=== PATIENT | female | born 1955 | race Caucasian/White ===

== ENCOUNTER 2017-03-20 11:18 | Outpatient (CLI) | payer MEDICARE, MEDICAID ==
[2017-03-20] MEDS ORDERED: Iopamidol 370 76% 100 ML VIAL ONE (13:54)
--- NOTE | 2017-03-20 14:49 | CT ---
CTA OF THE CHEST AND ABDOMEN AND PELVIS WITH AND WITHOUT IV CONTRAST: Date: 03/20/17 INDICATION: History of aortic aneurysm repair and breast cancer. COMPARISON: Prior exam dated 06/27/16. FINDINGS: Again seen is an endovascular stent extending from the distal aspect of the aortic arch through the l evel of the distal thoracic aorta. There is some mural thrombus seen along the posterior and left lat eral aspect of the endovascular stent that appears similar. The aneurysmal dilatation involving the d istal aortic arch is stable measuring up to 4.7 cm. The ascending aorta measured up to 2.9 cm. The celiac, SMA, and renal arteries appear patent. The FIDELINA is patent. Both common iliacs and common f emoral arteries are patent. There is scattered emphysema. There is a small sub-4 mm pulmonary nodule left upper lobe on image 25 of series 5. No suspicious pulmonary nodule is demonstrated. The gallbladder is surgically absent. No focal hepatic lesion is evident. Adrenal glands are normal appearing. Visualized pancreas appears within normal limits. A small splenule is present. Kidneys are normal appearing. There are some varicosities seen within the left aspect of the hemipelvis that communicate within the left gonadal vein. There is a decompressed sigmoid colon and rectum which may be related to poor distention; however, th ere is some suggestion of some mild wall thickening at this level. A proctocolitis cannot be entirely excluded. No drainable fluid collection is evident. Small sclerotic foci within the L4 and L3 vertebral body are stable since 2014, likely reflect small bone islands. There is scattered degenerative and osteoarthritic change. IMPRESSION: 1. Stable aneurysmal dilatation of the thoracic aorta. 2. The endograft stent remains patent. The extent of the mural thrombus appears similar to the most recent comparison. 3. Stable emphysema. 4. Slight wall thickening involving a portion of sigmoid colon and rectum may be related to underdis tention; however, a proctocolitis cannot be entirely excluded. Recommend correlation. POS: [facility]
== END 2017-03-20 11:19 | disposition home or self-care (01) ==
LOC: CT 11:18
PROVIDERS: ATTEND Family Medicine
DX: I71.2 Thoracic aortic aneurysm, without rupture (principal); I71.4 Abdominal aortic aneurysm, without rupture; J43.9 Emphysema, unspecified; C50.919 Malignant neoplasm of unspecified site of unspecified female breast; K63.89 Other specified diseases of intestine; Z95.828 Presence of other vascular implants and grafts
CPT/HCPCS: 71275; 74174

== ENCOUNTER 2017-10-28 15:49 | Outpatient (CLI) | payer MEDICARE, MEDICAID ==
--- NOTE | 2017-10-28 14:35 | RAD ---
TWO VIEW CHEST: History: Left breast cancer. Left rib pain. Comparison: 09-11-16 FINDINGS: Aortic stent graft again noted. Post op sternotomy changes. Clips overlying the right axilla region. Lungs remain clear. No evidence of vascular congestion. Heart size is within normal range. Osseous st ructures appear intact. Degenerative changes are prominent at the right shoulder. IMPRESSION: No acute abnormality identified. POS: [facility]
== END 2017-10-28 15:50 | disposition home or self-care (01) ==
LOC: RAD 15:49
PROVIDERS: ATTEND Radiology Radiation Oncology
DX: R07.81 Pleurodynia (principal); C50.911 Malignant neoplasm of unspecified site of right female breast; Z90.2 Acquired absence of lung [part of]; Z92.3 Personal history of irradiation
CPT/HCPCS: 71046

== ENCOUNTER 2018-01-28 13:39 | Outpatient (CLI) | payer MEDICARE, MEDICAID | END 2018-01-28 13:40 | disposition home or self-care (01) | LOC: BICMAMMO 13:39 | PROVIDERS: ATTEND Internal Medicine Hematology & Oncology | DX: Z08 Encounter for follow-up examination after completed treatment for malignant neoplasm (principal); Z85.3 Personal history of malignant neoplasm of breast; Z85.41 Personal history of malignant neoplasm of cervix uteri; Z80.3 Family history of malignant neoplasm of breast | CPT/HCPCS: 77063; 77066; 77067; G0279 ==

== ENCOUNTER 2018-03-06 09:01 | Outpatient (CLI) | payer MEDICARE, MEDICAID ==
--- NOTE | 2018-03-06 10:53 | BD ---
DEXA BONE DENSITY STUDY: Date: 03/06/18 HISTORY: 62-year-old female with history of breast cancer, osteopenia, menopause. FINDINGS/IMPRESSION: Lumbar Spine: BMD (g/cm2) L1 0.889 T-Score: -0.9 L2 0.878 T-Score: -1.4 L3 0.981 T-Score: -0.9 L4 0.894 T-Score: -1.5 L1-L4 0.914 T-Score: -1.2 Evidence for osteopenia with increased risk for fracture. Bone mineral density is decreased 3.5% from 05/07/16. Left Hip: Femoral Neck: 0.738 T-Score: -1.0 Total Femur: 0.856 T-Score: -0.7 Within normal limits with no increased risk for fracture. FRAX score is not reported because the patient is being treated for osteoporosis. POS: [facility]
--- NOTE | 2018-03-06 12:33 | CT ---
CTA OF THE CHEST AND ABDOMEN AND PELVIS WITHOUT CONTRAST: COMPARISON: 03/20/2017. HISTORY: Thoracic and abdominal aortic aneurysm. Followup exam. Status post stent graft placement. TECHNIQUE: Multiple contiguous axial images were obtained in a CTA of the chest, abdomen, and pelvis without con trast. Postcontrast images could not be obtained secondary to poor IV access for the patient. FINDINGS: The patient has a stent graft in the descending thoracic aorta extending out to the level of the diap hragm. Just above the stent graft, there is an area of aneurysmal dilatation of the left side of the aortic arch. This is just distal to the left subclavian artery takeoff. This area has enlarged com pared to the most recent examination and now measures 5.2 cm in greatest dimension. The aorta within the stent graft is stable in size measuring 5.2 cm in greatest dimension inferiorly at the diaphragm . The heart is normal in size without focal cardiac abnormality. No hilar or mediastinal lymphadenopat hy are appreciated on this limited noncontrast examination. Emphysematous changes are seen in the lungs. No suspicious pulmonary nodules are seen. No pneumotho rax or pleural effusion are seen. The patient is status post cholecystectomy. The liver, kidneys, adrenal glands, spleen, and pancreas are unremarkable, although evaluation is limited on this noncontrast examination. There are scattered diverticula in the colon. The small bowel is unremarkable. The reproductive org ans are unremarkable. No abdominal or pelvic lymphadenopathy are seen. Degenerative changes are seen in the spine. The chest and abdominal wall soft tissues are unremarkab le. IMPRESSION: 1. Status post stent graft repair of thoracic and abdominal aortic aneurysm. There is slight enlarg ement of the aorta just along the proximal aspect of the stent graft along the aortic arch as above. 2. Chronic obstructive pulmonary disease/emphysema. POS: [facility]
== END 2018-03-06 09:02 | disposition home or self-care (01) ==
LOC: BICMAMMO 09:01
PROVIDERS: ATTEND Family Medicine
DX: Z13.820 Encounter for screening for osteoporosis (principal); I71.4 Abdominal aortic aneurysm, without rupture; M85.88 Other specified disorders of bone density and structure, other site; Z78.0 Asymptomatic menopausal state; J43.9 Emphysema, unspecified
CPT/HCPCS: 36415; 71250; 74177; 77080; 80048

== ENCOUNTER 2018-05-09 09:01 | Outpatient (CLI) | payer MEDICARE, MEDICAID ==
--- NOTE | 2018-05-09 12:22 | CT ---
CT ANGIOGRAM THORAX WITH IV CONTRAST AND 3D RECONSTRUCTIONS CT ANGIOGRAM ABDOMEN WITH IV CONTRAST AND 3D RECONSTRUCTIONS: DATE: 05/09/2018. HISTORY: Aortic aneurysm. COMPARISON: Studies on 03/06/2018 and 03/20/2017. FINDINGS: Again noted is a thoracic aortic stent graft in the descending thoracic aorta which extends to the le anabella of the aortic hiatus. Again noted is the mural thrombus seen predominantly involving the posteri or and posterolateral aspects of the stent graft. Aneurysmal dilatation involving the distal aortic arch is again present. The greatest diameter is approximately 5.1 cm with previous measurement of ap proximately 4.7. This aneurysm begins at the level of the origin of the left subclavian artery which is patent. The innominate artery and proximal visualized bilateral common carotid arteries are pardo nt. The right subclavian artery remains ectatic measuring 1.8 cm in diameter but is patent. There a re surgical clips in the anterior superior mediastinum between the level of the innominate artery and left common carotid artery with surgical clips also seen in the right infraclavicular location. Med melissa sternotomy wires are present. The ascending thoracic aorta is normal in caliber measuring approximately 3 cm in diameter. The most proximal abdominal aorta at the level of the origin of the superior mesenteric artery measur es approximately 4.5 cm and there is eccentric mural thrombus present within this aneurysm. The lizzy ac and superior mesenteric arteries are patent. Vascular calcification is seen at the origin of the inferior mesenteric artery and the origin is difficult to evaluate on this exam. There are single pa tent bilateral renal arteries visualized, although the abdominal aorta is dilated at the level of the right renal artery measuring 4.1 cm in greatest dimension. Vascular calcifications are present within the abdominal aorta and involving the iliac arteries. The re is a small sacular aneurysm involving the distal aspect of the right common iliac artery which meagan sures approximately 1.1 cm. The iliac arteries are otherwise patent bilaterally. Bilateral common f emoral arteries appear patent. Surgical clips are seen in each inguinal region. Right-sided pericardial fluid collection measuring 5.5 cm x 2.9 cm which does measure similar in size to a study in 2018, but this has enlarged when compared to a CTA of the chest on 06/27/2016 where thi s measured 4.2 cm x 1.7 cm. Emphysematous changes are again seen within the lungs bilaterally, greater in the upper lobes with a few scattered linear densities likely related to areas of mild atelectasis or scarring. No discrete pulmonary nodule or mass is seen in the lungs bilaterally. Post cholecystectomy changes are noted The liver, spleen, pancreas, bilateral adrenal glands, kidneys, and incompletely distended urinary bl adder demonstrate a normal CT appearance. The uterus is small in size with small calcifications present which may be related to calcified uteri ne fibroids. A small amount of free fluid is seen in the pelvis which was not present on prior studies. There are metallic densities seen in the lower pelvis in the region of the vagina of uncertain etiolo gy but stable compared to the prior studies. However, there has been interval development of mild in flammatory stranding seen in the anterior pelvis just anterior and superior to the level of the urina ry bladder and anterior to the level of the uterus with irregular-appearing small masses probably rel ated to enlarged lymph nodes, the largest measuring 1.8 cm. There is a hypodense structure seen in t he right adnexal region measuring approximately 3 cm. I am unsure if this is related to fluid in thi s region or a cystic-appearing lesion. There is a small amount of free fluid in the pelvis. The irr egular mass-like nodules and inflammatory stranding in the anterior pelvis was not present on the dread or study in 2017 and findings are worrisome for the possibility of either developing carcinomatosis o r metastatic disease. There is colonic diverticulosis. Small fat-containing umbilical hernia is present. Degenerative changes are again noted in the spine. There is irregularity at the pubic symphysis prob ably related to degenerative changes. IMPRESSION: 1. Interval development of irregular nodular densities and inflammatory stranding within the anterio r aspect of the lower pelvis just superior and anterior to the level of the urinary bladder. There h as also been interval development of a small amount of free fluid in the pelvis with an approximately 3 cm low-density area within the right adnexal region which may also be related to fluid, although a cystic lesion could not be entirely excluded. This nodularity and inflammatory change with fluid is worrisome for a neoplastic process and may be related to carcinomatosis/metastatic disease. 2. Thoracic aortic stent graft with aneurysmal dilatation of the distal descending thoracic aorta me asuring 5.1 cm slightly enlarged from prior exams. This aneurysm begins at the level of the origin o f the left subclavian artery. 3. Abdominal aortic aneurysm with dilatation of the proximal abdominal aorta above the level and at the level of the right renal artery. 4. Right-sided pericardial fluid collection which has enlarged when compared to a CTA of the chest o n 06/27/2016. 5. Small fat-containing umbilical hernia. 6. Additional incidental findings as described above. Above findings were discussed with Dr. Magallon on 05/09/2018 at 11:07 hours. CODE CR POS: [id number]
[2018-05-09] MEDS ORDERED: Iopamidol 370 76% 100 ML VIAL ONE (14:48)
== END 2018-05-09 09:02 | disposition home or self-care (01) ==
LOC: CT 09:01
PROVIDERS: ATTEND Family Medicine
DX: I71.2 Thoracic aortic aneurysm, without rupture (principal); I71.4 Abdominal aortic aneurysm, without rupture; K42.9 Umbilical hernia without obstruction or gangrene
CPT/HCPCS: 71275; 74174; 82565

== ENCOUNTER 2018-07-22 10:10 | Day surgery (SDC) | payer MEDICARE, MEDICAID ==
[2018-07-21 11:56] VITALS: BMI 21.9
[2018-07-22 11:37] LABS: #Eosinphils 0.3 thou/uL (0.0-0.7); #Lymphocytes 1.6 thou/uL (1.20-3.40); #Monocytes 0.4 thou/uL (0.11-0.59); #Neutrophils 3.4 thou/uL (1.40-6.50); %Basophils 0.8 % (0.0-1.0); %Eosinophils 4.6 % (0.0-10.0); %Lymphocytes 27.9 % (21.0-51.0); %Monocytes 6.6 % (0.0-10.0); %Neutrophils 60.1 % (42.0-75.0); Hemoglobin 12.7 g/dL (12.0-16.0); Mean Corpuscular HGB CONC 33.4 g/dL (32.0-36.0); Mean Corpuscular Hemoglobin 31.6 pg (27.0-31.0); Mean Corpuscular Volume 94.3 fL (78.0-98.0); Mean Platelet Volume 8.3 fL (7.4-10.4); Platelet Count 147 thou/uL (130-400); RBC Distribution Width 11.7 % (11.5-14.5); Red Blood Cell (RBC) Count 4.03 mill/uL (4.20-5.40); White Blood Cell (WBC) Count 5.6 thou/uL (4.8-10.8)
[2018-07-22] MEDS ORDERED: Ketorolac Tromethamine 30 MG/ML VIAL ONE ×2 (11:59→12:08)
[2018-07-22] MEDS ORDERED: Albuterol Sulfate 2.5 mg/3 ml Neb NEB SCH (12:45)
[2018-07-22] MEDS ORDERED: Albuterol Sulfate 2.5 mg/3 ml Neb ONE ×2 (12:54→16:07)
[2018-07-22] MEDS ORDERED: Bupivacaine/Epinephrine 0.25% 30 ML VIAL ONE (14:11)
[2018-07-22] MEDS ORDERED: Lidocaine 1% (PF) 30 ML VIAL ONE (14:11)
[2018-07-22] MEDS ORDERED: Propofol 1,000 MG/100 ML VIAL IV ONE (14:50)
[2018-07-22] MEDS ORDERED: Promethazine HCl 25 MG/ML VIAL ONE (14:51)
[2018-07-22] MEDS ORDERED: PROPOFOL 200 MG/20 ML VIAL ONE (15:27)
--- NOTE | 2018-07-22 17:03 | RAD ---
CHEST ONE VIEW: 07/22/18 at 4:11 p.m. HISTORY: Left breast cancer, Mediport placement. FINDINGS: Comparison is made with exam of 10/28/17. Changes of median sternotomy and aortic stent graft are again seen. There surgical clips in the right axillary region. The heart size is normal. The aorta is tortuous. The lungs are well expanded without focal areas of c onsolidation, pneumothoraces or pleural effusions. There is a left subclavian Port-A-Cath projecting in the projection of the SVC. IMPRESSION: No acute process. POS: [facility]
--- NOTE | 2018-07-23 13:44 | OP ---
DATE OF PROCEDURE: 07/22/2018 PREOPERATIVE DIAGNOSIS: Ovarian cancer. POSTOPERATIVE DIAGNOSIS: Ovarian cancer. OPERATION PERFORMED: Placement of left subclavian power compatible standard size MediPort. ANESTHESIA: Total intravenous anesthesia with local using 0.25% Marcaine with epinephrine. INDICATIONS: The patient is a 63-year-old white female. She was recently diagnosed with ovarian cancer. Chemotherapy is planned. She presents this time for MediPort placement for chemotherapy administration. DESCRIPTION OF OPERATION: Informed consent was obtained. The patient was taken to the operating room where total intravenous anesthesia was obtained with the patient in supine position. Left periclavicular area was prepped with ChloraPrep and draped in sterile fashion. Local anesthetic was infiltrated and a large-gauge needle was passed under the clavicle in the subclavian vein. Guidewire was passed through the needle and fluoroscopically confirmed to enter the superior vena cava. Additional local anesthetic was infiltrated and transverse incision was created based on needle insertion site. A subcutaneous pocket was dissected inferiorly. Introducer dilator was passed over the guidewire under fluoroscopic guidance. The guidewire and dilator were removed, and the catheter was passed through the introducer. The tip of the catheter was positioned at the atriocaval junction and the catheter was trimmed to the appropriate length and secured to the locking hub of the MediPort. The port was then placed in the subcutaneous pocket where it was secured to the pectoral fascia with 2 interrupted sutures of 3-0 Prolene. The incision was then closed in layers with 3-0 and 4-0 Monocryl. Additional local anesthetic was infiltrated. The port was cannulated with a Goodson needle and it aspirated blood freely and was flushed with heparinized saline. Dermabond was placed externally on the skin incision. There were no complications. Blood loss was negligible. The patient tolerated the procedure well and was taken to recovery room in stable condition. FINDINGS: The port was placed into the left subclavian vein uneventfully. A power compatible port was utilized of standard size. There were no complications and essentially no blood loss. Anatomy was standard and fluoroscopy was utilized. Job ID: [id number]
== END 2018-07-22 17:40 | disposition home or self-care (01) ==
LOC: SDC 10:10
PROVIDERS: ATTEND Specialist
PROC: 0JH63WZ Insertion of Totally Implantable Vascular Access Device into Chest Subcutaneous Tissue and Fascia, Percutaneous Approach (ICD-10-PCS; principal; 2018-07-22)
DX: C56.9 Malignant neoplasm of unspecified ovary (principal); J44.9 Chronic obstructive pulmonary disease, unspecified; I10 Essential (primary) hypertension; E78.5 Hyperlipidemia, unspecified; Z87.891 Personal history of nicotine dependence; Z79.810 Long term (current) use of selective estrogen receptor modulators (SERMs); Z79.51 Long term (current) use of inhaled steroids; Z79.899 Other long term (current) drug therapy; Z88.5 Allergy status to narcotic agent; Z88.8 Allergy status to other drugs, medicaments and biological substances; Z98.51 Tubal ligation status; Z90.710 Acquired absence of both cervix and uterus; Z98.890 Other specified postprocedural states; Z90.722 Acquired absence of ovaries, bilateral
CPT/HCPCS: 36561; 71045; 85025; 93005; C1788; 93010; J0131; J0690; J1642; J1885; J2001; J2550; J2704; J7611

== ENCOUNTER 2018-07-31 10:48 | Day surgery (SDC) | payer MEDICARE, MEDICAID ==
[~2018-07-31 10:48] MED LIST: CARBOPLATIN IVPB SCH; Dexamethasone 10 MG in Sodium Chloride 0.9% 50 ML IVPB SCH; Famotidine/PF 20 MG in Sodium Chloride 0.9% 50 ML IVPB SCH; PACLitaxel 310 MG in Sodium Chloride 0.9% 500 ML IVPB SCH; Palonosetron HCl 0.25 MG in Sodium Chloride 0.9% 50 ML IVPB SCH; Pegfilgrastim Onpro 6 MG/0.6 ML SQ SCH; SODIUM CHLORIDE 0.9% IVPB SCH; diphenhydrAMINE 50 MG in Sodium Chloride 0.9% 50 ML IVPB SCH
[2018-07-31 11:47] VITALS: BP 146/67; TEMP 98.5
[2018-07-31] MEDS ORDERED: Sodium Chloride 0.9% 30 ML ONE (12:00)
== END 2018-07-31 16:51 | disposition home or self-care (01) ==
LOC: ONC/OP 10:48
PROVIDERS: ATTEND Internal Medicine Hematology & Oncology
DX: Z51.11 Encounter for antineoplastic chemotherapy (principal); C50.411 Malignant neoplasm of upper-outer quadrant of right female breast; Z17.0 Estrogen receptor positive status [ER+]; Z88.5 Allergy status to narcotic agent; Z88.8 Allergy status to other drugs, medicaments and biological substances
CPT/HCPCS: 96367; 96375; 96377; 96413; 96417; J1100; J1200; J1453; J1642; J2469; J2505; J3490; J7050; J9045; J9267; S0028

== ENCOUNTER 2018-08-04 11:10 | Emergency (ER) | payer MEDICARE, MEDICAID ==
[2018-08-04] MEDS ORDERED: Promethazine HCl 25 MG/ML VIAL ONE (11:38)
[2018-08-04 12:11] LABS: White Blood Cell (WBC) Count 24.4 thou/uL (4.8-10.8)
[2018-08-04] MEDS ORDERED: Metoclopramide HCl 10 MG/2 ML VIAL ONE (12:14)
[2018-08-04] MEDS ORDERED: Morphine 4 MG/ML VIAL ONE (12:14)
[2018-08-04 12:15] LABS: Hemoglobin 12.6 g/dL (12.0-16.0); Mean Corpuscular HGB CONC 32.1 g/dL (32.0-36.0); Mean Corpuscular Hemoglobin 30.7 pg (27.0-31.0); Mean Corpuscular Volume 95.6 fL (78.0-98.0); Platelet Count 135 thou/uL (130-400); RBC Distribution Width 11.9 % (11.5-14.5); Red Blood Cell (RBC) Count 4.09 mill/uL (4.20-5.40)
[2018-08-04 12:21] LABS: Bilirubin Negative (Negative); Blood, Urine Large (Negative); Clarity CLEAR (Clear); Glucose, Urine (Dipstick) Negative (Negative); Leukocyte Small (Negative); Nitrite Negative (Negative); Protein, Urine (Dipstick) Negative (Neg-Trace); Specific Gravity, Urine 1.016 (1.002-1.036); Urobilinogen 0.2 mg/dL (0.2-1.0)
[2018-08-04 12:24] LABS: Bacteria/HPF None Seen HPF (None Seen); Hyaline Casts/LPF 7-10 HYALINE CAST LPF (0-3 Hyaline); Pathc Cast-AUWi Flag 1.63 (0-2.49); RBC/HPF 21-50 HPF (0-3); Squamous Epithelial 0-3 HPF (0-3); WBC/HPF 0-3 HPF (0-3)
[2018-08-04 12:28] LABS: ALT (SGPT) 18 U/L (8-55); AST (SGOT) 20 U/L (5-34); Albumin 4.4 g/dL (3.4-4.8); Alkaline Phosphatase 92 U/L (40-150); Anion Gap 12 mmol/L (10-20); BUN (Urea Nitrogen) 24 mg/dL (9.8-20.1); Bilirubin, Total 1.1 mg/dL (0.2-1.2); Calc. Creatinine Clearance 0 mL/min (70-130); Calcium 9.9 mg/dL (7.8-10.44); Carbon Dioxide 31 mmol/L (23-31); Chloride 98 mmol/L (98-107); Estimated GFR-MDRD 66; Globulin 2.5 g/dL (2.4-3.5); Glucose 81 mg/dL (80-115); Lipase 22 U/L (8-78); Protein, Total 6.9 g/dL (6.0-8.3); Sodium 136 mmol/L (136-145)
[2018-08-04 12:29] LABS: Band 14 % (5-11); Lymphocytes 11 % (21-51); MDiff Complete? YES; Monocytes 3 % (0-10); Neutrophil 72 % (42-75); Platelet Morphology Comment Appears Adequate; Polychromasia SLIGHT = 2-3 cells (100X) (0-2/hpf); Vacuoles SLIGHT
--- NOTE | 2018-08-04 12:29 | CT ---
CT ABDOMEN AND PELVIS WITH IV CONTRAST: HISTORY: Abdominal pain. Breast cancer and cervical cancer. Stage III ovarian cancer, recent chemothe rapy COMPARISON: CTA 05/09/2018 FINDINGS: The lung bases are unremarkable. Aortic stent graft in the thoracic oh abdominal aorta is again seen with mural thrombus in the posterior and posterolateral aspects of the stent graft. Proximal abdominal aorta at the level of the origin of the SMA is stable measuring 4.5 cm with an eccentric mu ral thrombus within the aneurysm which is stable. The right-sided pericardial fluid collection is stable. The patient is post cholecystectomy. The liver, spleen, pancreas, adrenal glands and kidneys are norm al. No free air, free fluid or lymphadenopathy is seen in the abdomen or pelvis. There are postoperative changes in the anterior abdominal wall. There is fecal material in the colon. There is mild colonic diverticulosis. Small fat-containing umbi lical hernia is again seen. Metallic densities in the lower pelvis in the region of the vagina are stable. A small uterus with probable calcified fibroids is again seen. The nodularity in the pelvis n oted on the previous study appears to have improved on the current exam. No osteolytic or osteoblastic lesions are seen. IMPRESSION: No acute process.
[2018-08-04] MEDS ORDERED: Ketorolac Tromethamine 30 MG/ML VIAL ONE (13:23)
[2018-08-04] MEDS ORDERED: Diazepam 5 MG TAB ONE (13:23)
[2018-08-04] MEDS ORDERED: Iopamidol 370 76% 100 ML VIAL ONE (13:41)
== END 2018-08-04 13:34 | disposition home or self-care (01) ==
LOC: ERS 11:10
DX: C56.9 Malignant neoplasm of unspecified ovary (principal); R11.0 Nausea; J44.9 Chronic obstructive pulmonary disease, unspecified; F41.9 Anxiety disorder, unspecified
CPT/HCPCS: 51701; 74177; 80053; 81003; 81015; 83690; 85025; 93005; 96365; 96375; A4353; J1642; J1885; J2270; J2550; J2765; Q9967

== ENCOUNTER 2018-08-21 11:36 | Day surgery (SDC) | payer MEDICARE, MEDICAID ==
[~2018-08-21 11:36] MED LIST changes: -Dexamethasone 10 MG in Sodium Chloride 0.9% 50 ML IVPB SCH
[2018-08-21] MEDS ORDERED: Sodium Chloride 0.9% 30 ML ONE (11:46)
[2018-08-21 12:14] VITALS: BP 147/70; TEMP 98.8
[2018-08-21] MEDS ORDERED: Pegfilgrastim Onpro 6 MG/0.6 ML SQ SCH (17:00)
== END 2018-08-21 18:02 | disposition home or self-care (01) ==
LOC: ONC/OP 11:36
PROVIDERS: ATTEND Internal Medicine Hematology & Oncology
DX: Z51.11 Encounter for antineoplastic chemotherapy (principal); C50.411 Malignant neoplasm of upper-outer quadrant of right female breast; Z88.5 Allergy status to narcotic agent; Z88.8 Allergy status to other drugs, medicaments and biological substances; Z79.891 Long term (current) use of opiate analgesic; Z79.51 Long term (current) use of inhaled steroids; Z79.899 Other long term (current) drug therapy
CPT/HCPCS: 80053; 82248; 83615; 84100; 84550; 86304; 96367; 96375; 96377; 96413; 96415; 96417; J1100; J1200; J1453; J1642; J2469; J2505; J3490; J7050; J9045; J9267; S0028

== ENCOUNTER 2018-09-11 10:05 | Day surgery (SDC) | payer MEDICARE, MEDICAID ==
[~2018-09-11 10:05] MED LIST changes: -Pegfilgrastim Onpro 6 MG/0.6 ML SQ SCH
[2018-09-11] MEDS ORDERED: Pegfilgrastim Onpro 6 MG/0.6 ML SQ SCH (10:30)
[2018-09-11] MEDS ORDERED: CARBOPLATIN IVPB SCH (10:30)
[2018-09-11] MEDS ORDERED: SODIUM CHLORIDE 0.9% IVPB SCH (10:30)
[2018-09-11 11:57] VITALS: BP 140/66; TEMP 97.8
== END 2018-09-11 16:45 | disposition home or self-care (01) ==
LOC: ONC/OP 10:05
PROVIDERS: ATTEND Internal Medicine Hematology & Oncology
DX: Z51.11 Encounter for antineoplastic chemotherapy (principal); C50.411 Malignant neoplasm of upper-outer quadrant of right female breast; C56.9 Malignant neoplasm of unspecified ovary
CPT/HCPCS: 36415; 80053; 81001; 82248; 83615; 84100; 84550; 86304; 87086; 96367; 96377; 96413; 96415; 96417; J1100; J1200; J1453; J2469; J2505; J3490; J7050; J9045; J9267; S0028

== ENCOUNTER 2018-09-26 07:23 | Outpatient (CLI) | payer MEDICARE, MEDICAID ==
--- NOTE | 2018-09-26 09:46 | CT ---
CT ABDOMEN AND PELVIS WITH IV CONTRAST: HISTORY: Follow up ovarian cancer. Patient on chemotherapy. COMPARISON: 05/09/2018 08/04/2018 FINDINGS: Extensive stable lower thoracic and upper abdominal aortic aneurysm with associated stent graft with some persistent aneurysmal dilatation at the level of the superior mesenteric artery origin, stable. The lung bases appear clear. Stable right pericardial circumscribed fluid collection, possible marie cardial cyst. Unremarkable appearing liver. No evidence of liver metastasis. Status post cholecyst ectomy. The pancreas, adrenal glands, and spleen are unremarkable. Small renal hypodensities, stabl e. No renal calculus or obstruction. Nearly empty bladder. Sigmoid colon diverticulosis without acute diverticulitis. Very minute residual fat stranding in the pelvis but improved from 08/04/2018 . No evidence for associated adenopathy. Resolution of the previously noted nodular densities when compared to the prior 05/09/2018 study. IMPRESSION: 1. Postoperative changes in the pelvis. 2. No evidence of metastasis. 3. No significant free fluid. 4. Other stable findings. POS: [facility]
[2018-09-26] MEDS ORDERED: ISOVUE-370 76%-LOCM 1 ML ONE (10:16)
== END 2018-09-26 07:24 | disposition home or self-care (01) ==
LOC: BICCT 07:23
PROVIDERS: ATTEND Internal Medicine Hematology & Oncology
DX: C50.411 Malignant neoplasm of upper-outer quadrant of right female breast (principal); C56.9 Malignant neoplasm of unspecified ovary; I71.6 Thoracoabdominal aortic aneurysm, without rupture; I72.8 Aneurysm of other specified arteries; I31.8 Other specified diseases of pericardium; N28.89 Other specified disorders of kidney and ureter; K57.30 Diverticulosis of large intestine without perforation or abscess without bleeding; Z90.49 Acquired absence of other specified parts of digestive tract; Z95.828 Presence of other vascular implants and grafts
CPT/HCPCS: 74177; 86304; Q9966

== ENCOUNTER 2018-11-04 10:08 | Day surgery (SDC) | payer MEDICARE, MEDICAID ==
[~2018-11-04 10:08] MED LIST changes: +Pegfilgrastim Onpro 6 MG/0.6 ML SQ SCH
[2018-11-04] MEDS ORDERED: SODIUM CHLORIDE 0.9% IVPB SCH (10:30)
[2018-11-04] MEDS ORDERED: CARBOPLATIN IVPB SCH (10:30)
[2018-11-04] MEDS ORDERED: Sodium Chloride 0.9% 20 ML ONE (10:50)
[2018-11-04 10:53] VITALS: BP 139/70; TEMP 98.2
== END 2018-11-04 16:23 | disposition home or self-care (01) ==
LOC: ONC/OP 10:08
PROVIDERS: ATTEND Internal Medicine Hematology & Oncology
DX: Z51.11 Encounter for antineoplastic chemotherapy (principal); C50.411 Malignant neoplasm of upper-outer quadrant of right female breast; C56.9 Malignant neoplasm of unspecified ovary; Z88.5 Allergy status to narcotic agent; Z88.8 Allergy status to other drugs, medicaments and biological substances; G56.40 Causalgia of unspecified upper limb
CPT/HCPCS: 80053; 80307; 82248; 83615; 84100; 84550; 86304; 96367; 96375; 96377; 96413; 96415; 96417; G0483; J1100; J1200; J1453; J1642; J2469; J2505; J3490; J7050; J9045; J9267; S0028

== ENCOUNTER 2018-11-25 10:16 | Day surgery (SDC) | payer MEDICARE, MEDICAID ==
[2018-11-25] MEDS ORDERED: Sodium Chloride 0.9% 20 ML ONE (10:25)
[2018-11-25 10:40] VITALS: BP 118/66; TEMP 98
== END 2018-11-25 16:31 | disposition home or self-care (01) ==
LOC: ONC/OP 10:16
PROVIDERS: ATTEND Internal Medicine Hematology & Oncology
DX: Z51.11 Encounter for antineoplastic chemotherapy (principal); C50.411 Malignant neoplasm of upper-outer quadrant of right female breast; C56.9 Malignant neoplasm of unspecified ovary; Z88.5 Allergy status to narcotic agent; Z88.8 Allergy status to other drugs, medicaments and biological substances
CPT/HCPCS: 36415; 80053; 82248; 83615; 84100; 84550; 86304; 96367; 96375; 96377; 96413; 96415; 96417; J1100; J1200; J1453; J1642; J2469; J2505; J3490; J7050; J9045; J9267; S0028

== ENCOUNTER 2018-12-16 10:36 | Day surgery (SDC) | payer MEDICARE, MEDICAID ==
[2018-12-16] MEDS ORDERED: Sodium Chloride 0.9% 20 ML ONE (10:59)
== END 2018-12-16 17:35 | disposition home or self-care (01) ==
LOC: ONC/OP 10:36
PROVIDERS: ATTEND Internal Medicine Hematology & Oncology
DX: Z51.11 Encounter for antineoplastic chemotherapy (principal); C50.411 Malignant neoplasm of upper-outer quadrant of right female breast; C56.9 Malignant neoplasm of unspecified ovary; Z88.5 Allergy status to narcotic agent
CPT/HCPCS: 36415; 80053; 82248; 83615; 84100; 84550; 86304; 96367; 96375; 96377; 96413; 96415; 96417; J1100; J1200; J1453; J1642; J2469; J2505; J3490; J7050; J9267; S0028

== ENCOUNTER 2019-01-14 13:25 | Outpatient (CLI) | payer MEDICARE, MEDICAID ==
[~2019-01-14 13:25] MED LIST changes: -CARBOPLATIN IVPB SCH; -Famotidine/PF 20 MG in Sodium Chloride 0.9% 50 ML IVPB SCH; +Iopamidol 370 76% 100 ML VIAL ONE; -PACLitaxel 310 MG in Sodium Chloride 0.9% 500 ML IVPB SCH; -Palonosetron HCl 0.25 MG in Sodium Chloride 0.9% 50 ML IVPB SCH; -Pegfilgrastim Onpro 6 MG/0.6 ML SQ SCH; -SODIUM CHLORIDE 0.9% IVPB SCH; -diphenhydrAMINE 50 MG in Sodium Chloride 0.9% 50 ML IVPB SCH
--- NOTE | 2019-01-14 16:30 | CT ---
CT OF CHEST, ABDOMEN AND PELVIS PERFORMED WITH AND WITHOUT CONTRAST ENHANCMENT: 01/14/19 HISTORY: Ovarian cancer, also with a history of breast cancer. COMPARISON: CT abdomen and pelvis that was performed 09/26/[address] of the chest, abdomen and pelvis performed 05/09/18. There are emphysematous lung changes seen. There are no pulmonary nodules or pleural effusions identi fied. No significant mediastinal or hilar adenopathy. A thoracic aortic stent graft is again demonstrated. Just proximal to this stent at the level of the ascending aorta, the aorta measures approximately 5 c m. A similar measurement to that obtained on the previous exam. The ascending aorta is normal in antonette lela in the 3 cm range. Right sided pericardial fluid collection is again noted stable. CT OF ABDOMEN PERFORMED WITH CONTRAST ENHANCEMENT: The liver, spleen and pancreas regions appear unremarkable. The gallbladder has been removed. Right and left adrenal glands are normal in appearance. Subtle area of altered attenuation on the lat eral cortex of the right kidney is felt to be stable as compared to the prior exam. There is no signi ficant periaortic or mesenteric adenopathy. CT OF PELVIS PERFORMED WITH CONTRAST ENHANCEMENT: The nodularity that was seen in the pelvis is no longer visualized. The uterus and ovaries appear to have been removed. IMPRESSION: 1. Stable appearance to the thoracic aortic graft. 2. Emphysematous lung change. 3. Resolution of the nodular areas within the pelvis. 4. Minimal sigmoid diverticulosis. POS: [facility]
--- NOTE | 2019-01-14 16:35 | CT ---
CT ANGIO OF THE CHEST, ABDOMEN AND PELVIS PERFORMED WITH INTRAVENOUS CONTRAST ENHANCEMENT WITH 3D REC ONSTRUCTIONS: 01/14/19 This examination discussion will be tailored exclusively to the angiographic portion of the study. A CT chest, abdomen and pelvis had been previously performed and other findings are described in that e xam. The ascending thoracic aorta is normal in caliber measuring in the 3 cm range. There is a thoracic ao rtic stent in the descending thoracic aorta. Just proximal to the stent, there is persistent aneurysm al dilatation of the aortic arch. Maximum measurement of approximately 5 cm is obtained on today's st udy, similar to the previous exam. The left subclavian and origins of the right common and right inno minate are stable. The right innominate artery is mildly dilated at 1.8 cm, also stable. Eccentric th rombus along the posterior and left lateral wall of the lower portion of the aortic stent is again de monstrated. The aorta tapers and is normal in caliber in the infrarenal portion. A patent superior me senteric artery is demonstrated. The celiac artery is also patent without significant stenosis. An IM A is also identified. IMPRESSION: Stable overall exam. Unchanged appearance to the thoracic aortic stent and aneurysmal dilatation to t he aortic arch. POS: [facility]
== END 2019-01-14 13:26 | disposition home or self-care (01) ==
LOC: ULT 13:25
PROVIDERS: ATTEND Family Medicine
DX: C50.011 Malignant neoplasm of nipple and areola, right female breast (principal); C56.9 Malignant neoplasm of unspecified ovary; C53.9 Malignant neoplasm of cervix uteri, unspecified; I71.2 Thoracic aortic aneurysm, without rupture; I71.4 Abdominal aortic aneurysm, without rupture; J43.9 Emphysema, unspecified; K57.30 Diverticulosis of large intestine without perforation or abscess without bleeding; I08.3 Combined rheumatic disorders of mitral, aortic and tricuspid valves; I31.3 Pericardial effusion (noninflammatory); Z95.828 Presence of other vascular implants and grafts
CPT/HCPCS: 71250; 71260; 71275; 74174; 74177; 80307; 82565; 84439; 84443; 93306; G0483; 36415; J1642; Q9967

== ENCOUNTER 2019-03-18 09:04 | Outpatient (CLI) | payer MEDICARE, MEDICAID ==
--- NOTE | 2019-03-18 09:54 | MMO ---
Bilateral MAMMO Bilat Diag DDI+ELSA. CLINICAL HISTORY: Patient is 64 years old and is seen for diagnostic exam. The patient has the following family history of breast cancer: maternal aunt, malignant (generic) and 2 cousin females, malignant (generic), MATERNAL. The patient has a history of cervical cancer in 2018; ovarian cancer in 2018; lumpectomy procedure revealed invasive ductal right breast carcinoma in January, and Ultrasound guided core biopsy procedure revealed invasive ductal right breast carcinoma in November,. The patient has a history of right Ultrasound Guided Core Biopsy in November,. VIEWS: The views performed were: bilateral craniocaudal with tomosynthesis; bilateral mediolateral oblique with tomosynthesis; and bilateral mediolateral with tomosynthesis. FILMS COMPARED: The present examination has been compared to prior imaging studies performed at [facility] on 11/22/2015, 11/29/2015, 12/19/2016 and 01/28/2018. This study has been interpreted with the assistance of computer-aided detection. MAMMOGRAM FINDINGS: There are scattered fibroglandular densities. Finding 1: There are stable benign appearing calcifications with associated architectural distortion and post-surgical scar seen in the right breast. Finding 2: There are benign appearing calcifications seen in the left breast. There are no suspicious masses, suspicious calcifications, or new areas of architectural distortion. IMPRESSION: FINDING 1: STABLE BENIGN APPEARING CALCIFICATIONS IN THE RIGHT BREAST ARE BENIGN. THE FINDINGS AND RECOMMENDATIONS WERE DISCUSSED WITH THE PATIENT PRIOR TO HER LEAVING THE CENTER. FINDING 2: BENIGN APPEARING CALCIFICATIONS IN THE LEFT BREAST ARE BENIGN. A ROUTINE FOLLOW-UP MAMMOGRAM IN 1 YEAR IS RECOMMENDED. THE RESULTS OF THIS EXAM WERE SENT TO THE PATIENT. ACR BI-RADS Category 2 - Benign finding MAMMOGRAPHY NOTE: 1. A negative mammogram report should not delay a biopsy if a dominant of clinically suspicious mass is present. 2. Approximately 10% to 15% of breast cancers are not detected by mammography. 3. Adenosis and dense breasts may obscure an underlying neoplasm. Reported by: LAMONT PAULSON MD Electonically Signed: [id number]
== END 2019-03-18 09:05 | disposition home or self-care (01) ==
LOC: BICMAMMO 09:04
PROVIDERS: ATTEND Internal Medicine Hematology & Oncology
DX: C50.411 Malignant neoplasm of upper-outer quadrant of right female breast (principal); R92.1 Mammographic calcification found on diagnostic imaging of breast
CPT/HCPCS: 77066; G0279

== ENCOUNTER 2019-04-21 09:21 | Outpatient (CLI) | payer MEDICARE, MEDICAID ==
--- NOTE | 2019-04-21 10:02 | RAD ---
EXAM: 3 views of the left foot HISTORY: Foot pain; postherpetic neuralgia. COMPARISON: None FINDINGS: 3 views of the left foot shows an oblique fracture of the distal fifth metatarsal. Mild lat eral soft tissue swelling is seen. No degenerative changes are present. IMPRESSION: Left fifth metatarsal fracture.
--- NOTE | 2019-04-21 11:19 | CT ---
EXAM: CT of the chest with contrast CT of the abdomen and pelvis with contrast HISTORY: Breast cancer COMPARISON: 01/14/2019 TECHNIQUE: 1. Multiple contiguous axial images were obtained in a CT the chest with contrast. Coronal and sagitt al reformats were performed. 2. Multiple contiguous axial images were obtained and a CT of the abdomen and pelvis with contrast. O ral contrast was administered. Coronal and sagittal reformats were performed. FINDINGS: CT CHEST: HEART: Normal in size without focal cardiac abnormality. There is a stable low-density well-circumscr ibed oval-shaped cystic lesion along the right heart border measuring 5.8 cm in size. This may represent a small loculated pericardial effusion or pericardial cyst. MEDIASTINUM: No hilar or mediastinal lymphadenopathy. LUNGS: No focal infiltrates, nodules, or masses. Emphysematous changes in the lungs. PLEURAL SPACE: No pneumothorax or pleural effusion. CHEST WALL SOFT TISSUES: Unremarkable CT ABDOMEN/PELVIS: ABDOMEN: LIVER: within normal limits. BILE DUCTS: Normal caliber. GALLBLADDER: Removed PANCREAS: within normal limits. SPLEEN: within normal limits. ADRENALS: within normal limits. KIDNEYS: within normal limits. PELVIS: REPRODUCTIVE ORGANS: Status post hysterectomy. URETERS: within normal limits. BLADDER: within normal limits. PERITONEUM: No ascites or free air, no fluid collection. BOWEL: Normal caliber. Scattered diverticula in the colon. MESENTERY AND RETROPERITONEUM: No enlarged mesenteric or retroperitoneal lymph nodes. VESSELS: There is a stent graft in the suprarenal aorta. The aorta measures 5.4 cm in greatest dimens ion. There is stable ectasia of the aorta just above the stent graft. ABDOMINAL WALL: Left-sided Mediport with its tip in the superior vena cava. OSSEOUS STRUCTURES: No suspicious osseous lesion seen. Mild degenerative changes in the spine. IMPRESSION: 1. No evidence of recurrent or metastatic disease. 2. Diverticulosis 3. Stable abdominal aortic aneurysm
[2019-04-21] MEDS ORDERED: Iopamidol 370 76% 100 ML VIAL ONE (13:29)
== END 2019-04-21 09:22 | disposition home or self-care (01) ==
LOC: CT 09:21
PROVIDERS: ATTEND Internal Medicine Hematology & Oncology
DX: B02.29 Other postherpetic nervous system involvement (principal); C50.411 Malignant neoplasm of upper-outer quadrant of right female breast; K57.90 Diverticulosis of intestine, part unspecified, without perforation or abscess without bleeding; I71.4 Abdominal aortic aneurysm, without rupture; S62.307A Unspecified fracture of fifth metacarpal bone, left hand, initial encounter for closed fracture
CPT/HCPCS: 71260; 73630; 74177; 80053; 80307; 82565; 86304; G0483; Q9967

== ENCOUNTER 2019-06-03 14:07 | Inpatient (IN) | payer MEDICARE, MEDICAID ==
[~2019-06-03 14:07] MED LIST changes: -Iopamidol 370 76% 100 ML VIAL ONE; +Iopamidol-370 76% 500 ML 1 ML ONE
[2019-06-03 16:07] LABS: Prothrombin Time 13.6 SEC (12.0-14.7)
[2019-06-03 16:08] LABS: PTT 39.5 SEC (22.9-36.1)
[2019-06-03 16:09] LABS: #Eosinphils 0.2 thou/uL (0.0-0.7); #Lymphocytes 1.4 thou/uL (1.20-3.40); #Monocytes 0.6 thou/uL (0.11-0.59); #Neutrophils 4.5 thou/uL (1.40-6.50); %Basophils 0.3 % (0.0-1.0); %Eosinophils 2.4 % (0.0-10.0); %Lymphocytes 21.6 % (21.0-51.0); %Monocytes 8.4 % (0.0-10.0); %Neutrophils 67.2 % (42.0-75.0); Hemoglobin 10.4 g/dL (12.0-16.0); Mean Corpuscular HGB CONC 35.2 g/dL (32.0-36.0); Mean Corpuscular Hemoglobin 34.9 pg (27.0-31.0); Mean Corpuscular Volume 99.2 fL (78.0-98.0); Mean Platelet Volume 9.5 fL (7.4-10.4); Platelet Count 92 thou/uL (130-400); RBC Distribution Width 12.8 % (11.5-14.5); Red Blood Cell (RBC) Count 2.99 mill/uL (4.20-5.40); White Blood Cell (WBC) Count 6.6 thou/uL (4.8-10.8)
[2019-06-03] MEDS ORDERED: Fentanyl 100 MCG/2 ML VIAL ONE ×2 (16:10→17:29)
[2019-06-03] MEDS ORDERED: Promethazine HCl 25 MG/ML VIAL ONE ×2 (16:11→17:29)
[2019-06-03 16:23] LABS: ALT (SGPT) 13 U/L (8-55); AST (SGOT) 16 U/L (5-34); Albumin 3.7 g/dL (3.4-4.8); Alkaline Phosphatase 61 U/L (40-110); Anion Gap 16 mmol/L (10-20); BUN (Urea Nitrogen) 27 mg/dL (9.8-20.1); Bilirubin, Total 0.7 mg/dL (0.2-1.2); CK (CPK) 55 U/L (29-168); Calc. Creatinine Clearance 0 mL/min (70-130); Calcium 8.7 mg/dL (7.8-10.44); Carbon Dioxide 26 mmol/L (23-31); Chloride 101 mmol/L (98-107); Estimated GFR-MDRD 50; Globulin 2.2 g/dL (2.4-3.5); Glucose 91 mg/dL (80-115); Lipase 41 U/L (8-78); Potassium 4.3 mmol/L (3.5-5.1); Protein, Total 5.9 g/dL (6.0-8.3); Sodium 139 mmol/L (136-145)
--- NOTE | 2019-06-03 17:11 | RAD ---
Portable frontal chest radiograph: 06/03/2019 COMPARISON: 07/22/2018 HISTORY: Severe abdominal pain FINDINGS: Stent material overlies the descending thoracic aorta, stable. Stable postsurgical clips ov erlie the subclavian region on the right. Stable CT injectable left Port-A-Cath. There is new blunting of the left costophrenic angle with new partial consolidation/collapse of the l eft lower lobe. IMPRESSION: Interval development of partial consolidation/collapse of left lower lobe with associated left pleural effusion.
--- NOTE | 2019-06-03 17:55 | CT ---
CT abdomen and pelvis: 06/03/2019 COMPARISON: 04/21/2019 HISTORY: Breast cancer, severe abdominal pain TECHNIQUE: Axial CT imaging at 5 mm intervals from lung bases through pubic symphysis with IV contras t. Coronal and sagittal reformatted imaging obtained. FINDINGS: Imaged lung bases demonstrate incompletely visualized new consolidation/collapse of the lef t lower lobe. The right lung base is clear. There is diffuse aneurysmal dilatation of the descending thoracic aorta status post stent graft placement, stable when compared to the prior exam. The distal thoracic aorta measures 5.3 cm in transverse dimension. No free intraperitoneal air or free abdominal/pelvic fluid. Stable focal area of fluid density adjacent to the pericardium and the right cardiophrenic angle note d measuring 3.7 x 5.7 cm. This could represent a pericardial cyst or a focal area of pericardial fluid. The liver and spleen appear grossly unremarkable. The pancreas, adrenal glands, and kidneys demonstrate no acute findings. Cholecystectomy clips are pr esent. The uterus appears surgically absent. There is sigmoid diverticulosis without evidence for diverticulitis. There is no evidence for large or small bowel obstruction. There is scattered atherosclerotic calcification of the abdominal aorta and its branches, stable. No abdominal or pelvic lymphadenopathy. Review of the osseous structures demonstrates lower lumbar spine facet hypertrophy. No worrisome lytic or blastic bone lesion. IMPRESSION: New incompletely imaged consolidation/collapse of the left lower lobe. No acute findings are seen otherwise. Numerous incidental findings as detailed above.
[2019-06-03] MEDS ORDERED: Cefepime 2 GM VIAL ONE (18:50)
[2019-06-03 19:08] LABS: Bacteria/HPF None Seen HPF (None Seen); Bilirubin Negative (Negative); Blood, Urine 2+ (Negative); Clarity Clear (Clear); Glucose, Urine (Dipstick) Normal (Negative); Leukocyte Negative Leu/uL (Negative); Nitrite Negative (Negative); Protein, Urine (Dipstick) 30 mg/dL (Neg-Trace); RBC/HPF Greater than 50 HPF (0-3); Squamous Epithelial 0-3 HPF (0-3); Urobilinogen Normal mg/dL (Less than 2); WBC/HPF 0-3 HPF (0-3)
[2019-06-03 19:47] LABS: Troponin I 0.017 ng/mL (< 0.028)
[2019-06-03] MEDS ORDERED: Calcium Carbonate 500 MG ChewTAB PO PRN (19:47)
[2019-06-03] MEDS ORDERED: Fentanyl 100 MCG/2 ML VIAL SLOW IVP PRN (19:51)
--- NOTE | 2019-06-03 20:05 | PDOC.HHP ---
Hospitalist HPI - History of Present Illness History of Present Illness: Ms. Matias is a 64-year-old lady with a history of cervical cancer diagnosed at age 29 in remission, breast cancer diagnosed 2 years ago in remission, and ovarian cancer recently diagnosed this past year with last chemo in March who presents to the emergency room with abdominal pain, nausea, decreased appetite, cough with sputum production over the course of this past month. She states after having chemo and therapy in March she has felt bad. She has abdominal discomfort which is a cramping diffuse like pain and has had loose stools, nausea, and episodes of vomiting. She says she cannot control her stools sometimes. Additionally she noticed an episode of bleeding in the toilet after she urinated 1 week ago. She is unsure where this came from. During the last month she has also had a productive cough of thick yellow/ whitish sputum. She has taken amoxicillin in the outpatient without much help. She states over the last 2 weeks the cough has become worse. She normally sees Dr. Redman for oncology and went for appointment today, but her abdominal pain was so severe that she got sent here to the emergency room. Additionally she sees Dr. Keller for management for her COPD. Hospitalist ROS - Review of Systems Constitutional: reports: weakness Eyes: denies: pain, vision change, conjunctivae inflammation, eyelid inflammation, redness, other ENT: denies: ear pain, ear discharge, nose pain, nose discharge, nose congestion , mouth pain, mouth swelling, throat pain, throat swelling, other Respiratory: reports: cough. denies: dry, shortness of breath, hemoptysis, SOB with excertion, pleuritic pain, sputum, wheezing, other Cardiovascular: denies: chest pain, palpitations, orthopnea, paroxysmal noc. dyspnea, edema, light headedness, other Gastrointestinal: reports: nausea, abdominal pain, diarrhea. denies: vomiting, constipation, melena, hematochezia, other Genitourinary: denies: dysuria, frequency, incontinence, hematuria, retention, other Musculoskeletal: denies: neck pain, shoulder pain, arm pain, back pain, hand pain, leg pain, foot pain, other Skin: denies: rash, lesions, wilbert, bruising, other Neurological: denies: weakness, numbness, incoordination, change in speech, confusion, seizures, other - Medication Medications: Medication Instructions Recorded Confirmed Type Albuterol Sulfate [Proair HFA] 1 - 2 puff IH Q4HR PRN 01/09/16 07/21/18 History Atorvastatin Calcium 10 mg PO HS 01/09/16 07/21/18 History Cyclobenzaprine [Flexeril] 10 mg PO TID PRN 01/09/16 07/21/18 History HYDROcodone Bit/APAP 7.5/325 0.5 tab PO TID 01/09/16 07/21/18 History [[place]] Metoprolol Succinate 12.5 mg PO DAILY 01/09/16 07/21/18 History Promethazine [Phenergan] 25 mg PO HS 01/09/16 07/21/18 History Levothyroxine Sodium [Levo-T] 25 mcg PO DAILY 01/31/16 07/21/18 History Fluticasone/Salmeterol [Advair 1 puff INH BID 08/28/16 07/21/18 History Diskus 500/50] Ipratropium/Albuterol Sulfate 3 ml NEB Q4HR PRN 08/28/16 07/21/18 History [DuoNeb] Metoprolol Succinate [Toprol XL] 12.5 mg PO HS PRN 08/28/16 07/21/18 History predniSONE [Prednisone] 10 mg PO PRN PRN 08/28/16 07/21/18 History Benzonatate [Tessalon] 100 mg PO PRN PRN 07/21/18 07/21/18 History Fluticasone/Salmeterol [Advair 1 puff PO BID 07/21/18 07/21/18 History Diskus 500/50] Umeclidinium [place] [Incruse 1 inh IH DAILY 07/21/18 07/21/18 History Ellipta] Hospitalist History - Past Medical History Source: patient Cardiac: reports: CHF, HTN Pulmonary: reports: COPD PATHOLOGICAL TECHNICIAN: reports: no pertinent history Gastrointestinal: reports: no pertinent history Heme/Onc: reports: Cancer Hepatobiliary: reports: no pertinent history Psych: reports: no pertinent history Musculoskeletal: reports: no pertinent history Rheumatologic: reports: no pertinent history Infectious Disease: reports: no pertinent history ENT: reports: no pertinent history Renal/: reports: no pertinent history Endocrine: reports: Hypothyroidism - Past Surgical History Past Surgical History: reports: Hysterectomy - Family History Family History: reports: no pertinent history - Social History Smoking Status: Current every day smoker Tobacco Type: cigarettes Alcohol: reports: None Living Situation: Alone Activity level: independent ambulation - Exam General Appearance: NAD, awake alert Eye: PERRL, anicteric sclera ENT: normocephalic atraumatic, no oropharyngeal lesions, moist mucosa Neck: supple, symmetric, no JVD, no thyromegaly, no lymphadenopathy, no carotid bruit Heart: RRR, no murmur, no gallops, no rubs, normal peripheral pulses Respiratory: normal chest expansion, no tachypnea, normal percussion, rhonchi Gastrointestinal: soft, non-distended, no palpable masses, no hepatomegaly, no splenomegaly, no bruit, tender to palpation Extremities: no cyanosis, no clubbing, no edema Skin: normal turgor, no lesions, no rashes Neurological: cranial nerve grossly intact, normal sensation to touch, no weakness, no focal deficits, no new deficit Musculoskeletal: normal tone, normal strength, no muscle wasting Psychiatric: normal affect, normal behavior, A&O x 3 Hospitalist Results - Labs Result Diagrams: 06/03/19 15:56 06/03/19 15:56 Lab results: WBC 6.6 thou/uL (4.8-10.8) 06/03/19 15:56 Hgb 10.4 g/dL (12.0-16.0) L 06/03/19 15:56 Hct 29.6 % (36.0-47.0) L 06/03/19 15:56 MCV 99.2 fL (78.0-98.0) H 06/03/19 15:56 Plt Count 92 thou/uL (130-400) L 06/03/19 15:56 Neutrophils % 67.2 % (42.0-75.0) 06/03/19 15:56 Sodium 139 mmol/L (136-145) 06/03/19 15:56 Potassium 4.3 mmol/L (3.5-5.1) 06/03/19 15:56 Chloride 101 mmol/L (98-107) 06/03/19 15:56 Carbon Dioxide 26 mmol/L (23-31) 06/03/19 15:56 BUN 27 mg/dL (9.8-20.1) H 06/03/19 15:56 Creatinine 1.11 mg/dL (0.6-1.1) H 06/03/19 15:56 Glucose 91 mg/dL (80-115) 06/03/19 15:56 Lactic Acid 1.0 mmol/L (0.5-2.2) 06/03/19 15:56 Calcium 8.7 mg/dL (7.8-10.44) 06/03/19 15:56 Total Bilirubin 0.7 mg/dL (0.2-1.2) 06/03/19 15:56 AST 16 U/L (5-34) 06/03/19 15:56 ALT 13 U/L (8-55) 06/03/19 15:56 Alkaline Phosphatase 61 U/L (40-110) 06/03/19 15:56 Creatine Kinase 55 U/L (29-168) 06/03/19 15:56 Troponin I 0.017 ng/mL (< 0.028) 06/03/19 19:14 Serum Total Protein 5.9 g/dL (6.0-8.3) L 06/03/19 15:56 Albumin 3.7 g/dL (3.4-4.8) 06/03/19 15:56 Lipase 41 U/L (8-78) 06/03/19 15:56 Urine Ketones Negative mg/dL (Negative) 06/03/19 18:50 Urine Blood 2+ (Negative) A 06/03/19 18:50 Urine Nitrite Negative (Negative) 06/03/19 18:50 Ur Leukocyte Esterase Negative [place]/uL (Negative) 06/03/19 18:50 Urine RBC Greater than 50 HPF (0-3) A 06/03/19 18:50 Urine WBC 0-3 HPF (0-3) 06/03/19 18:50 Ur Squamous Epith Cells 0-3 HPF (0-3) 06/03/19 18:50 Urine Bacteria None Seen HPF (None Seen) 06/03/19 18:50 - Radiology Interpretation Chest x-ray Status: image reviewed by me, report reviewed by me CT scan - abdomen Status: report reviewed by me Hospitalist H&P A/P - Problem (1) Healthcare-associated pneumonia Code(s): J18.9 - PNEUMONIA, UNSPECIFIED ORGANISM Status: Acute (2) Abdominal pain Code(s): R10.9 - UNSPECIFIED ABDOMINAL PAIN Status: Acute (3) Ovarian cancer Status: Acute (4) Immunosuppressed due to chemotherapy Code(s): Z79.899 - OTHER HYDROELECTRIC MECHANIC (CURRENT) DRUG THERAPY Status: Acute (5) Acute exacerbation of chronic obstructive pulmonary disease (COPD) Code(s): J44.1 - CHRONIC OBSTRUCTIVE PULMONARY DISEASE W (ACUTE) EXACERBATION Status: Acute (6) History of aortic aneurysm repair Code(s): Z98.890 - OTHER SPECIFIED POSTPROCEDURAL STATES; Z86.79 - PERSONAL HISTORY OF OTHER DISEASES OF THE CIRCULATORY SYSTEM Status: Chronic (7) Hypothyroidism Code(s): E03.9 - HYPOTHYROIDISM, UNSPECIFIED Status: Chronic (8) Anemia Code(s): D64.9 - ANEMIA, UNSPECIFIED Status: Acute - Plan Plan: Admit for inpatient oncology. Further work-up /treatment of healthcare associated pneumonia and abdominal pain Start cefepime and vancomycin, follow blood culture, sputum culture, and Legionella and strep urine antigens Treat COPD exacerbation with budesonide and DuoNeb nebulization and daily prednisone I have personally reviewed the CT scan, there appears to be a new consolidation of the left lower lobe. She had a CT scan 1 month ago which did not demonstrate this. I will go ahead and obtain a CT of the chest for further visualization of this area, as this was seen on the CT abdomen film and only the lung base was able to be visualized. We will consult her pulmonary physician in the outpatient Dr. Keller Continue pain control for abdominal pain including fentanyl and [place] PRN Continue home medications once they are reconciled for chronic conditions DVT prophylaxis: Lovenox CODE STATUS: Full code ACP: Her sisters are the surrogate decision maker Disposition: Treatment of pneumonia. Coordinate with consultants. Work-up of left lung infiltrate.
--- NOTE | 2019-06-03 21:37 | CT ---
CT of thechest without contrast: 06/03/2019 COMPARISON:04/21/2019 HISTORY:Pneumonia TECHNIQUE: Serial axial CT imaging at5 mm intervals from thethoracic inlet through upper abdomen with out contrast. Coronal and sagittal reformatted imaging obtained Findings:The lack of contrast media limits assessment of the imaged viscera, vascular structures, and for lymphadenopathy. Left-sided Port-A-Cath present. There is aneurysmal dilatation of the distal aspect of the aortic arch measuring approximately 4.9 cm in transverse dimension, stable. Diffuse ane urysmal dilatation of the descending thoracic aorta status post stent graft placement noted, unchanged. Stable fluid density lesion adjacent to the right aspect of the heart measuring up to 5.8 cm. No pneumothorax. Upper lobe emphysematous changes are noted bilaterally, right greater than left. There is new consolidation/collapse of the left lower lobe suggesting infectious pneumonitis/aspirati on. The imaged osseous structures demonstrate no acute findings. The patient is status post midline haskins otomy. IMPRESSION: Interval development of complete consolidation/collapse of the left lower lobe. Findings may be on the basis of aspiration. Short-term follow-up imaging of the chest finding treatment to document reexpansion of the left lower lobe recommended.
[2019-06-03] MEDS ORDERED: Promethazine HCl 12.5 MG in Sodium Chloride 0.9% 50 ML IVPB PRN (22:54)
[2019-06-03] MEDS ORDERED: Acetaminophen 325 MG TAB PO PRN (22:54)
[2019-06-03] MEDS ORDERED: Atorvastatin Calcium 10 MG TAB PO SCH (23:00)
[2019-06-03 23:24] LABS: Troponin I 0.023 ng/mL (< 0.028)
[2019-06-04] MEDS: Nicotine 14 MG PATCH TD SCH ×2 (00:44→20:45)
[2019-06-04 03:50] LABS: Legionella Urinary Ag Negative (Negative); Strep pneumo Urine Ag NEGATIVE (NEGATIVE)
[2019-06-04] MEDS ORDERED: Sodium Chloride 0.9% 500 ML IVPB SCH (05:30)
[2019-06-04 06:13] LABS: #Eosinphils 0.2 thou/uL (0.0-0.7); #Lymphocytes 1.1 thou/uL (1.20-3.40); #Monocytes 0.4 thou/uL (0.11-0.59); #Neutrophils 2.8 thou/uL (1.40-6.50); %Basophils 0.5 % (0.0-1.0); %Eosinophils 4.1 % (0.0-10.0); %Lymphocytes 24.1 % (21.0-51.0); %Monocytes 9.7 % (0.0-10.0); %Neutrophils 61.7 % (42.0-75.0); Hemoglobin 9.4 g/dL (12.0-16.0); Mean Corpuscular HGB CONC 34.6 g/dL (32.0-36.0); Mean Corpuscular Hemoglobin 34.6 pg (27.0-31.0); Mean Platelet Volume 8.6 fL (7.4-10.4); Platelet Count 80 thou/uL (130-400); RBC Distribution Width 12.5 % (11.5-14.5); White Blood Cell (WBC) Count 4.5 thou/uL (4.8-10.8)
[2019-06-04 06:37] LABS: Anion Gap 12 mmol/L (10-20); BUN (Urea Nitrogen) 20 mg/dL (9.8-20.1); Calc. Creatinine Clearance 71 mL/min (70-130); Calcium 8.3 mg/dL (7.8-10.44); Carbon Dioxide 24 mmol/L (23-31); Chloride 108 mmol/L (98-107); Estimated GFR-MDRD 69; Glucose 83 mg/dL (80-115); Potassium 3.9 mmol/L (3.5-5.1); Sodium 140 mmol/L (136-145)
[2019-06-04] MEDS: Promethazine 25 MG TAB PO PRN ×2 (06:40→12:43)
[2019-06-04] MEDS: HYDROcodone/Acetaminophen 10/325 mg Tablet PO PRN ×2 (06:40→12:43)
[2019-06-04] MEDS: Budesonide 0.5 MG/2 ML NEB INH SCH ×2 (07:01→19:03)
[2019-06-04] MEDS: Enoxaparin Sodium 40 MG/0.4 ML SYRINGE SC SCH (09:30)
[2019-06-04] MEDS ORDERED: Cyclobenzaprine 10 MG TAB PO PRN (09:45)
--- NOTE | 2019-06-04 11:11 | CON ---
DATE OF CONSULTATION: HISTORY OF PRESENT ILLNESS: Rere Matias is a 64-year-old female who was seen in the office yesterday for COPD issues. She was relatively stable from a Pulmonary standpoint of view, though she was wheezing. She has just finished a course of prednisone. She takes advair 500/50 1puff bid day, nebulizer several times a day, rescue inhaler as needed, has been complained of abdominal pain. She saw Dr. Redman because of the severity of the pain. She was transferred to the ER, where she was eventually admitted. The patient is well known to me. She has longstanding history of tobacco abuse. It appears she may still be smoking somewhat. She can barely walk 50 feet on a good day without getting markedly short of breath. PAST MEDICAL HISTORY: Otherwise, pertinent for COPD, peripheral vascular disease, breast cancer, ovarian cancer apparently recurrent. Carotid disease, COPD, congestive heart failure, cardiac arrhythmias. PAST SURGICAL HISTORY: She has had multiple surgeries including thoracic and abdominal aneurysm surgery, gallbladder surgery, cardiac ablation, tubal ligation, history of chemotherapy ongoing with Dr. Redman. HOME MEDICATIONS: 1. ProAir. 2. Advair 500/50. 3. Atorvastatin. 4. Synthroid 25. 5. Metoprolol 25. 6. Hydrocodone for pain. 7. Nebulizer. ALLERGIES: MULTIPLE NARCOTICS, MORPHINE, AND CODEINE. REVIEW OF SYSTEMS: Otherwise, negative. PHYSICAL EXAMINATION: VITAL SIGNS: Temperature 97, pulse 76, respirations 20, saturations are 98% on 2 L, and blood pressure 101/62. CHEST: Minimal wheezing. CARDIAC: Normal S1 and S2. No gallops. ABDOMEN: No masses. IMAGING: Chest x-ray surprisingly shows a dilated thoracic aneurysm, a questionable left lower lobe infiltrate. CAT scan shows atelectatic changes in the left base. LABORATORY DATA: White count 4000, hemoglobin and hematocrit of 9 and 27. Platelet count is low, it is new. Lytes are normal. IMPRESSION: 1. Abdominal pain, severe, history of ovarian carcinoma. 2. History of breast carcinoma. 3. Left lower lung atelectasis, etiology unclear. There are no obvious masses or ascites seen in the abdomen. 4. Hypothyroidism. PLAN: Continue neb treatments, supportive care, PT. Pulmonary will follow. At this stage, I am not inclined to do diagnostic bronchoscopy in this patient. Consultation note, 70 minutes, 50% direct patient. Job ID: [id number] [facility] CENTERPerfecto
[2019-06-04 13:53] VITALS: BMI 20.3
[2019-06-04] MEDS: methylPREDNISolone Sod Succ/PF 125 MG/2 ML VIAL IVP SCH ×2 (14:48→18:50)
--- NOTE | 2019-06-04 17:18 | CON ---
DATE OF CONSULTATION: REASON FOR CONSULTATION: Ovarian cancer. HISTORY OF PRESENT ILLNESS: Ms. 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 She completed chemotherapy with carboplatin and Taxol in 12/2018. She has been on tamoxifen for her stage I, ER/VT positive, HER2 negative invasive ductal carcinoma breast cancer from 2016. She presented to our clinic yesterday for routine followup and had severe abdominal discomfort that had started several weeks prior, but progressively worsened in the last 24 hours prior to being seen. Her pain was so severe that she was sent to the emergency room. She denied any fevers, chills, or shortness of breath. She does have a history of tobacco use and COPD, which she is managed by Dr. Keller. In the emergency room, a CT scan of the chest showed interval development of complete consolidation and collapse of her left lower lobe. She also underwent a CT scan of her abdomen and pelvis. There was no evidence of bowel obstruction. She had sigmoid diverticulosis, but no diverticulitis. There was no free air. No ascites. No acute changes to explain her severe abdominal discomfort. She denies any significant diarrhea. She does state she had blood in her urine several weeks ago and has been on antibiotics. She denies any flank pain. She was admitted for further workup and Dr. Keller has been consulted. She was started on antibiotics and pancultured. She was started on pain control for her abdominal discomfort. PAST MEDICAL HISTORY: 1. 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 2. 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 3. COPD. 4. Thoracic aneurysm. 5. Hypertension. 6. Anxiety. PAST SURGICAL HISTORY: 1. Tubal ligation. 2. Cholecystectomy. 3. Aneurysm repair. ALLERGIES: TO CODEINE, DEMEROL, MORPHINE, AND STADOL. HOME MEDICATIONS: 1. Advair. 2. Atorvastatin. 3. Cyclobenzaprine. 4. Hydrocodone. 5. Incruse Ellipta. 6. Levothyroxine. 7. Metoprolol. 8. Mobic. 9. Prilosec. 10. ProAir. 11. Valium. FAMILY HISTORY: Breast cancer in her aunts. SOCIAL HISTORY: , has 2 children. Lives alone. She is a former smoker. No alcohol or illicit drug use. REVIEW OF SYSTEMS: A 10-point review of systems is negative except for noted in HPI. PHYSICAL EXAMINATION: VITAL SIGNS: Temperature is 97.8, pulse is 94, respiratory rate 20, BP is 100/60, and she is 92% on 2 L. GENERAL: This is a well-developed, well-nourished female, in no acute distress. HEENT: Normocephalic and atraumatic. Pupils are equal and reactive to light. NECK: Supple. CV: Regular rate and rhythm. LUNGS: Clear anterior. ABDOMEN: Nontender. Bowel sounds are hyperactive. EXTREMITIES: No clubbing or cyanosis. SKIN: No rash. HEMATOLOGIC: No petechiae or purpura. NEUROLOGIC: Nonfocal. PERTINENT LABORATORY DATA AND X-RAYS: Current WBCs are 4.5, hemoglobin 9.4, hematocrit 27.0, and platelet count is 80,000. She has 61% neutrophils and 24% lymphocytes. PT is 13.6, INR is 1, and PTT is 39.5. Sodium 140, potassium 3.9, chloride 108, CO2 is 24, BUN is 20, creatinine 0.83, and calcium 8.3. Bilirubin 0.7, AST 16, ALT 13, alkaline phosphatase is 61, serum total protein 5.9, albumin 3.7, globulin 2.2, and lipase 41. Troponin is negative. Urine is negative for bacteria, positive for 2+ blood. Radiology per HPI. ASSESSMENT: 1. Acute abdominal discomfort. 2. Left lower lobe atelectasis. DISCUSSION: Dr. Keller has seen the patient and started her on nebs and antibiotics, treating her abdominal discomfort with [place] pain medication. Her CA-125 has significantly increased in the last several weeks, though her CT scan shows no evidence of disease. She has seen Dr. Mahoney in the [place] in the past. Would recommend pain control and she will likely need to follow up with Dr. Mahoney in the outpatient setting. I have discussed with Dr. Colon her imaging of the thoracic aneurysm. He has reviewed it and stated that there appears to be no leak that would be causing her pain. It is unclear why she has significant abdominal discomfort. Plan to continue supportive care. Case has been discussed with Dr. eRdman. We will follow her hospital course. Job ID: [id number]
--- NOTE | 2019-06-04 17:53 | PDOC.HOSPP ---
- Subjective Encounter Date: 06/04/19 Encounter Time: 17:53 Subjective: Continues with abdominal pain and cough symptoms. States that the norco is helping. Otherwise no issues. - Objective Vital Signs & Weight: Vital Signs (12 hours) Temp Pulse Resp BP BP Pulse Ox 06/04/19 15:13 97.8 F 94 20 100/60 92 L 06/04/19 14:14 91 16 93 L 06/04/19 12:15 93 L 06/04/19 11:17 97.6 F 88 20 115/71 91 L 06/04/19 10:38 80 16 94 L 06/04/19 07:32 97.9 F 86 20 104/62 93 L 06/04/19 07:01 71 16 95 06/04/19 06:59 71 16 95 06/04/19 06:39 115/71 Weight Admit Weight 134 lb Weight 134 lb I&O: 06/03/19 06/04/19 06/05/19 06:59 06:59 06:59 Intake Total 1220 Balance 1220 Result Diagrams: 06/04/19 06:01 06/04/19 06:01 Hospitalist ROS - Review of Systems All other systems reviewed; all pertinent +/- noted in HPI/Subj - Medication Medications: Active Medications Generic Name Dose Route Start Last Admin Trade Name Freq PRN Reason Stop Dose Admin Acetaminophen 650 mg 06/03/19 22:54 06/03/19 23:35 Tylenol PO 650 mg Q4H PRN Administration Headache/Fever or Pain Hydrocodone Bitart/Acetaminophen 1 tab 06/03/19 19:47 06/04/19 12:43 Alpha 10/325 PO 1 tab Q4H PRN Administration Moderate Pain (4-6) Albuterol/Ipratropium 3 ml 06/04/19 11:00 06/04/19 14:14 Duoneb NEB 3 ml [id number] MEKHI Administration Budesonide 0.5 mg 06/04/19 06:30 06/04/19 07:01 Pulmicort Neb Solution INH 0.5 mg BID-RT MEKHI Administration Enoxaparin Sodium 40 mg 06/04/19 09:00 06/04/19 09:30 Lovenox SC Not Given 0900 MEKHI Fentanyl 25 mcg 06/03/19 19:51 06/04/19 00:00 Sublimaze SLOW IVP 25 mcg Q2H PRN Administration Moderate to Severe Pain (6-10) Promethazine HCl 12.5 mg/ 50.5 mls @ 202 mls/hr 06/03/19 22:54 06/03/19 23:35 Sodium Chloride IVPB 50.5 mls Q6H PRN Administration Nausea/Vomiting Methylprednisolone Sodium Succinate 40 mg 06/04/19 12:00 06/04/19 14:48 Solu-Medrol IVP 40 mg Q6HR MEKHI Administration Nicotine 14 mg 06/03/19 20:00 06/04/19 00:44 Nicoderm Patch TD Not Given Q24HR MEKHI Promethazine HCl 25 mg 06/03/19 19:52 06/04/19 12:43 Phenergan PO 25 mg Q6H PRN Administration Nausea/Vomiting - Exam General Appearance: NAD, awake alert Eye: PERRL, anicteric sclera ENT: normocephalic atraumatic, no oropharyngeal lesions, moist mucosa Neck: supple, symmetric, no JVD, no thyromegaly, no lymphadenopathy, no carotid bruit Heart: RRR, no murmur, no gallops, no rubs, normal peripheral pulses Respiratory: CTAB, no wheezes, no rales, no ronchi, normal chest expansion, no tachypnea, normal percussion Gastrointestinal: soft, non-tender, non-distended, normal bowel sounds, no palpable masses, no hepatomegaly, no splenomegaly, no bruit Extremities: no cyanosis, no clubbing, no edema Skin: normal turgor, no lesions, no rashes Neurological: cranial nerve grossly intact, normal sensation to touch, no weakness, no focal deficits, no new deficit Musculoskeletal: normal tone, normal strength, no muscle wasting Psychiatric: normal affect, normal behavior, A&O x 3 Hosp A/P (1) Healthcare-associated pneumonia Code(s): J18.9 - PNEUMONIA, UNSPECIFIED ORGANISM Status: Acute (2) Abdominal pain Code(s): R10.9 - UNSPECIFIED ABDOMINAL PAIN Status: Acute (3) Ovarian cancer Status: Acute (4) Immunosuppressed due to chemotherapy Code(s): Z79.899 - OTHER [facility] (CURRENT) DRUG THERAPY Status: Acute (5) Acute exacerbation of chronic obstructive pulmonary disease (COPD) Code(s): J44.1 - CHRONIC OBSTRUCTIVE PULMONARY DISEASE W (ACUTE) EXACERBATION Status: Acute (6) History of aortic aneurysm repair Code(s): Z98.890 - OTHER SPECIFIED POSTPROCEDURAL STATES; Z86.79 - PERSONAL HISTORY OF OTHER DISEASES OF THE CIRCULATORY SYSTEM Status: Chronic (7) Hypothyroidism Code(s): E03.9 - HYPOTHYROIDISM, UNSPECIFIED Status: Chronic (8) Anemia Code(s): D64.9 - ANEMIA, UNSPECIFIED Status: Acute - Plan Further work-up /treatment of healthcare associated pneumonia and abdominal pain C/w cefepime and vancomycin, follow blood culture, sputum culture, and Legionella and strep urine antigens Treat COPD exacerbation with budesonide and DuoNeb nebulization and daily prednisone I have personally reviewed the CT scan, there appears to be a new consolidation of the left lower lobe. Continue pain control for abdominal pain including fentanyl and [place] PRN Continue home medications once they are reconciled for chronic conditions Disposition: Continue to tx pneumonia/copd exacberation. Pulm and Onc reccs appciated. Further wokup of abdominal pain if problem continues to persist.
[2019-06-04] MEDS: Cefepime 2 GM in Sodium Chloride 0.9% 100 ML IVPB SCH (18:49)
[2019-06-04] MEDS: Mometasone/Formoterol 120 PUFF INHALER INH SCH (18:59)
[2019-06-04] MEDS ORDERED: Vancomycin HCl 1 GM in Sodium Chloride 0.9% 250 ML 250 ML IVPB SCH (20:00)
[2019-06-04] MEDS: Atorvastatin Calcium 10 MG TAB PO SCH (20:45)
[2019-06-04] MEDS: Vancomycin HCl 1 GM in Premix Bag 1 BAG IVPB SCH (20:45)
[2019-06-04 21:07] LABS: Troponin I Less than 0.010 ng/mL (< 0.028)
[2019-06-05] MEDS: methylPREDNISolone Sod Succ/PF 125 MG/2 ML VIAL IVP SCH ×2 (00:59→05:56)
[2019-06-05 01:23] LABS: Troponin I Less than 0.010 ng/mL (< 0.028)
[2019-06-05] MEDS: HYDROcodone/Acetaminophen 10/325 mg Tablet PO PRN ×3 (01:51→17:21)
[2019-06-05] MEDS: Promethazine 25 MG TAB PO PRN ×3 (01:51→17:21)
[2019-06-05] MEDS: Levothyroxine Sodium 25 MCG TAB PO SCH (05:55)
[2019-06-05] MEDS: Mometasone/Formoterol 120 PUFF INHALER INH SCH (07:17)
[2019-06-05] MEDS: Budesonide 0.5 MG/2 ML NEB INH SCH (07:17)
[2019-06-05] MEDS: Enoxaparin Sodium 40 MG/0.4 ML SYRINGE SC SCH ×2 (08:12→08:14)
--- NOTE | 2019-06-05 08:50 | PRG ---
DATE OF SERVICE: 06/05/2019 SUBJECTIVE: This morning, the patient is better though she is still having a vague abdominal pain. OBJECTIVE: VITAL SIGNS: Temperature 97, pulse 100, respirations 22, saturations 98% on 2 L, blood pressure 126/82. CHEST: Decreased breath sounds. Minimal wheezing. CARDIAC: Normal S1 and S2. ABDOMEN: Negative mass. ASSESSMENT AND PLAN: End-stage chronic obstructive pulmonary disease, chronic abdominal pain, probably metastatic ovarian carcinoma. Pulmonary montelongo, I will continue present neb treatments and steroids. I do not see any evidence of any sepsis. I would deescalate oral antibiotics. Disposition as per the primary care physician. Job ID: [id number]
--- NOTE | 2019-06-05 10:39 | PDOC.MOPN ---
Interval History: abdominal pain better. Continues to cough - Vital Signs Vital Signs: Vital Signs (12 hours) Temp Pulse Resp BP Pulse Ox 06/05/19 08:00 92 L 06/05/19 07:37 97.5 F L 100 22 H 126/82 92 L 06/05/19 07:14 89 16 96 06/05/19 04:24 97.8 F 87 16 104/62 95 06/05/19 00:26 97.8 F 83 16 100/61 92 L Weight Admit Weight 134 lb Weight 134 lb - Physical Exam General: Alert, Oriented x3, No acute distress HEENT: Atraumatic, PERRLA, EOMI, Mucous membr. moist/pink Lungs: Other Cardiovascular: Regular rate, Normal S1, Normal S2, No murmurs, Gallops, Rubs Abdomen: Normal bowel sounds, Soft, No tenderness, No hepatospenomegaly, No masses Extremities: No clubbing, No cyanosis, No edema, Normal pulses, No tenderness/ swelling Skin: No rashes, No breakdown, No significant lesion Neurological: Normal speech - Labs Result Diagrams: 06/04/19 06:01 06/04/19 06:01 Lab results: Laboratory Results - last 24 hr 06/05/19 00:47: Troponin I Less than 0.010 06/04/19 20:05: Troponin I Less than 0.010 Status: lab reviewed by me A/P - Problem (1) Ovarian cancer Current Visit: No Status: Acute - Plan Plan: Continue ABX, nebs per pulmonary Continue pain meds for abdominal pain Follow-up Dr. Redman next week
--- NOTE | 2019-06-05 13:13 | PDOC.HOSPP ---
- Subjective Encounter Date: 06/05/19 Encounter Time: 09:00 Subjective: pt feels that she had stressful event last pm and wants glucose bag to run. stomach pain better today. - Objective Vital Signs & Weight: Vital Signs (12 hours) Temp Pulse Resp BP Pulse Ox 06/05/19 08:00 92 L 06/05/19 07:37 97.5 F L 100 22 H 126/82 92 L 06/05/19 07:14 89 16 96 06/05/19 04:24 97.8 F 87 16 104/62 95 Weight Admit Weight 134 lb Weight 134 lb I&O: 06/04/19 06/05/19 06/06/19 06:59 06:59 06:59 Intake Total 1220 240 Output Total 75 Balance 1145 240 Result Diagrams: 06/04/19 06:01 06/04/19 06:01 Hospitalist ROS - Medication Medications: Active Medications Generic Name Dose Route Start Last Admin Trade Name Freq PRN Reason Stop Dose Admin Acetaminophen 650 mg 06/03/19 22:54 06/03/19 23:35 Tylenol PO 650 mg Q4H PRN Administration Headache/Fever or Pain Hydrocodone Bitart/Acetaminophen 1 tab 06/03/19 19:47 06/05/19 08:17 [place] 10/325 PO 1 tab Q4H PRN Administration Moderate Pain (4-6) Albuterol/Ipratropium 3 ml 06/04/19 11:00 06/05/19 10:34 Duoneb NEB 3 ml [id number] MEKHI Administration Atorvastatin Calcium 10 mg 06/04/19 21:00 06/04/19 20:45 Lipitor PO 10 mg HS MEKHI Administration Budesonide 0.5 mg 06/04/19 06:30 06/05/19 07:17 Pulmicort Neb Solution INH Not Given BID-RT MEKHI Enoxaparin Sodium 40 mg 06/04/19 09:00 06/05/19 08:14 Lovenox SC Not Given 09 MEKHI Fentanyl 25 mcg 06/03/19 19:51 06/04/19 00:00 Sublimaze SLOW IVP 25 mcg Q2H PRN Administration Moderate to Severe Pain (6-10) Cefepime HCl 2 gm/ Sodium 100 mls @ 200 mls/hr 06/04/19 18:00 06/04/19 18:49 Chloride IVPB 100 mls 1800 MEKHI Administration Promethazine HCl 12.5 mg/ 50.5 mls @ 202 mls/hr 06/03/19 22:54 06/03/19 23:35 Sodium Chloride IVPB 50.5 mls Q6H PRN Administration Nausea/Vomiting Vancomycin HCl 1 gm/ Device 200 mls @ 200 mls/hr 06/04/19 20:00 06/04/19 20: 45 IVPB 200 mls 2000 MEKHI Administration Levothyroxine Sodium 25 mcg 06/05/19 06:00 06/05/19 05:55 Synthroid PO 25 mcg 0600 MEKHI Administration Metoprolol Succinate 12.5 mg 06/05/19 09:00 06/05/19 08:11 Toprol Xl PO 12.5 mg DAILY MEKHI Administration Mometasone Furoate/Formoterol Fumar 2 puff 06/04/19 18:30 06/05/19 07:17 Dulera 200 Mcg/5 Mcg Inhaler INH Not Given BID-RT [facility] Nicotine 14 mg 06/03/19 20:00 06/04/19 20:45 Nicoderm Patch TD 14 mg Q24HR MEKHI Administration Promethazine HCl 25 mg 06/03/19 19:52 06/05/19 08:17 Phenergan PO 25 mg Q6H PRN Administration Nausea/Vomiting - Exam General Appearance: NAD, awake alert Eye: PERRL ENT: normocephalic atraumatic Neck: supple Heart: RRR Respiratory: CTAB Gastrointestinal - other findings: sux scar on the abdomen Hosp A/P - Plan Hosp A/P (1) Healthcare-associated pneumonia Code(s): J18.9 - PNEUMONIA, UNSPECIFIED ORGANISM Status: Acute -C/w cefepime and vancomycin, follow blood culture, sputum culture, and Legionella and strep urine antigens (2) Abdominal pain Code(s): R10.9 - UNSPECIFIED ABDOMINAL PAIN Status: Acute pain control for abdominal pain including fentanyl and [place] PRN (3) Ovarian cancer Status: Acute (4) Immunosuppressed due to chemotherapy Code(s): Z79.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 Status: Acute (5) Acute exacerbation of chronic obstructive pulmonary disease (COPD) Code(s): J44.1 - CHRONIC OBSTRUCTIVE PULMONARY DISEASE W (ACUTE) EXACERBATION Status: Acute - Treat COPD exacerbation with budesonide and DuoNeb nebulization and daily prednisone (6) History of aortic aneurysm repair Code(s): Z98.890 - OTHER SPECIFIED POSTPROCEDURAL STATES; Z86.79 - PERSONAL HISTORY OF OTHER DISEASES OF THE CIRCULATORY SYSTEM Status: Chronic (7) Hypothyroidism Code(s): E03.9 - HYPOTHYROIDISM, UNSPECIFIED Status: Chronic (8) Anemia Code(s): D64.9 - ANEMIA, UNSPECIFIED Status: Acute - Pulm and Onc reccs appciated.
--- NOTE | 2019-06-05 16:43 | EKG ---
Test Reason : STAT Blood Pressure : / mmHG Vent. Rate : 092 BPM Atrial Rate : 092 BPM P-R Int : 134 ms QRS Dur : 080 ms QT Int : 368 ms P-R-T Axes : 046 016 051 degrees QTc Int : 455 ms Normal sinus rhythm Possible Anterior infarct (cited on or before 03-JUN-2019) Abnormal ECG When compared with ECG of 03-JUN-2019 15:24, (Unconfirmed) No significant change was found Confirmed by DR. Natalie MCNULTY ([id number]) on 06/05/2019 4:42:56 PM Referred By: LEIGH ANN Confirmed By:DR. Natalie MCNULTY
[2019-06-05] MEDS: Cefepime 2 GM in Sodium Chloride 0.9% 100 ML IVPB SCH (17:13)
[2019-06-05] MEDS: Bisacodyl 5 MG TAB PO PRN (17:16)
[2019-06-05 19:24] LABS: Vancomycin, Trough 8.4 ug/mL
[2019-06-05] MEDS: Vancomycin HCl 1 GM in Premix Bag 1 BAG IVPB SCH (19:51)
[2019-06-05] MEDS: Nicotine 14 MG PATCH TD SCH (19:51)
[2019-06-05] MEDS: Atorvastatin Calcium 10 MG TAB PO SCH (19:52)
[2019-06-05] MEDS ORDERED: Vancomycin HCl 750 MG in Sodium Chloride 0.9% 250 ML 250 ML IVPB SCH (21:00)
[2019-06-06] MEDS: Levothyroxine Sodium 25 MCG TAB PO SCH (05:30)
[2019-06-06] MEDS: Enoxaparin Sodium 40 MG/0.4 ML SYRINGE SC SCH (08:05)
[2019-06-06] MEDS: predniSONE 20 MG TAB PO SCH (08:05)
[2019-06-06] MEDS: HYDROcodone/Acetaminophen 10/325 mg Tablet PO PRN ×2 (08:08→20:00)
[2019-06-06] MEDS: Promethazine 25 MG TAB PO PRN ×2 (08:08→20:01)
[2019-06-06] MEDS: Bisacodyl 5 MG TAB PO PRN (08:08)
[2019-06-06] MEDS ORDERED: Fleet Enema 133 ML BOT PR PRN (16:03)
[2019-06-06] MEDS ORDERED: Milk Of Magnesia 30 ML UDCUP PO SCH (16:15)
[2019-06-06] MEDS ORDERED: Mineral Oil PER 1 ML PO SCH (16:15)
[2019-06-06] MEDS ORDERED: Senokot S 8.6-50 MG TAB PO SCH (16:15)
--- NOTE | 2019-06-06 16:26 | PRG ---
DATE OF SERVICE: 06/06/2019 SERVICE: Pulmonary Medicine. INTERVAL HISTORY: The patient is doing really well from respiratory standpoint, last night, however, she ended up with a fever and night sweats. She also has not had a bowel movement since presenting to the hospital. She is very concerned about that. She has never really gone more than a day or two without having a bowel movement. There are no current chest discomfort or shortness of breath. Her appetite has improved and she is a little upset about having put on a low-carbohydrate diet. PHYSICAL EXAMINATION: VITAL SIGNS: Afebrile, pulse 95, blood pressure 116/66, respirations 16, saturation 94% on 2 L nasal cannula. GENERAL: The patient is awake and alert, in no apparent distress. LUNGS: Wonderful air entry. Rhonchi are present. There is a prolonged expiratory phase with a little bit of wheezing. No crackles are appreciated. HEART: Normal rate regular. ABDOMEN: Soft. Nontender. Nondistended. Bowel sounds are positive. MUSCULOSKELETAL: There is no cyanosis or clubbing. There is no skin tenting, or edema present. NEUROLOGIC: Grossly nonfocal. LABORATORY DATA: WBC 4.5, hemoglobin 9.4, platelets 80,000. INR 1.0. Basic metabolic profile is unremarkable. Troponin x2 are unremarkable. Urinalysis is positive for hematuria. Strep and Legionella urine antigens are unremarkable. Blood cultures x2 and respiratory culture negative to date. ASSESSMENT: 1. Healthcare-associated pneumonia in the left lower lobe. 2. Acute hypoxic respiratory failure. 3. Chronic obstructive pulmonary disease with acute exacerbation. 4. Ovarian cancer. DISCUSSION AND PLAN: We will continue antibiotics, nebulized medications, and steroids. I will give her some medications to help promote a bowel movement. If these are ineffective, we will provide her with an enema that she can ask for on a p.r.n. basis. Pulmonary will continue to follow, intermittently during this hospital stay. Ultimately, on discharge from the hospital, she will require repeat imaging to verify the infiltrate has resolved. Job ID: [id number]
[2019-06-06] MEDS: Cefepime 2 GM in Sodium Chloride 0.9% 100 ML IVPB SCH (17:07)
--- NOTE | 2019-06-06 18:52 | PDOC.HOSPP ---
- Subjective Encounter Date: 06/06/19 Encounter Time: 18:45 Subjective: f/u for HCAP on Cefepime/Vancomycin/Prednisone. No BM in 4 days. - Objective Vital Signs & Weight: Vital Signs (12 hours) Temp Pulse Resp BP Pulse Ox 06/06/19 14:40 95 18 91 L 06/06/19 10:11 81 16 94 L 06/06/19 08:00 100 06/06/19 07:22 97.6 F 68 18 116/66 100 06/06/19 07:13 76 16 99 Weight Admit Weight 134 lb Weight 134 lb I&O: 06/05/19 06/06/19 06/07/19 06:59 06:59 06:59 Intake Total 1220 720 840 Output Total 75 Balance 1145 720 840 Result Diagrams: 06/04/19 06:01 06/04/19 06:01 Additional Labs: Microbiology 06/04/19 16:50 Sputum Respiratory Culture - Final 06/03/19 22:36 Venous blood - Left Arm Blood Culture - Preliminary NO GROWTH AT 48 HOURS 06/03/19 20:06 Venous blood - Left Arm Blood Culture - Preliminary NO GROWTH AT 48 HOURS Laboratory Tests 06/03/19 06/04/19 06/04/19 15:56 03:27 03:27 Hgb 10.4 L MCV 99.2 H Plt Count 92 L Vancomycin Trough Ur L.pneumophila Ag Negative Ur Strep pneumoniae Ag NEGATIVE 06/05/19 19:00 Hgb MCV Plt Count Vancomycin Trough 8.4 Ur L.pneumophila Ag Ur Strep pneumoniae Ag Hospitalist ROS - Medication Medications: Active Medications Generic Name Dose Route Start Last Admin Trade Name Freq PRN Reason Stop Dose Admin Acetaminophen 650 mg 06/03/19 22:54 06/03/19 23:35 Tylenol PO 650 mg Q4H PRN Administration Headache/Fever or Pain Hydrocodone Bitart/Acetaminophen 1 tab 06/03/19 19:47 06/06/19 08:08 [place] 10/325 PO 1 tab Q4H PRN Administration Moderate Pain (4-6) Albuterol/Ipratropium 3 ml 06/04/19 11:00 06/06/19 14:40 Duoneb NEB 3 ml [id number] MEKHI Administration Atorvastatin Calcium 10 mg 06/04/19 21:00 06/05/19 19:52 Lipitor PO 10 mg HS MEKHI Administration Bisacodyl 10 mg 06/03/19 19:47 06/06/19 08:08 Dulcolax PO 10 mg DAILYPRN PRN Administration Constipation Enoxaparin Sodium 40 mg 06/04/19 09:00 06/06/19 08:05 Lovenox SC 40 mg 0900 MEKHI Administration Fentanyl 25 mcg 06/03/19 19:51 06/04/19 00:00 Sublimaze SLOW IVP 25 mcg Q2H PRN Administration Moderate to Severe Pain (6-10) Cefepime HCl 2 gm/ Sodium 100 mls @ 200 mls/hr 06/04/19 18:00 06/06/19 17:07 Chloride IVPB 100 mls 1800 MEKHI Administration Promethazine HCl 12.5 mg/ 50.5 mls @ 202 mls/hr 06/03/19 22:54 06/03/19 23:35 Sodium Chloride IVPB 50.5 mls Q6H PRN Administration Nausea/Vomiting Levothyroxine Sodium 25 mcg 06/05/19 06:00 06/06/19 05:30 Synthroid PO 25 mcg 0600 MEKHI Administration Metoprolol Succinate 12.5 mg 06/05/19 09:00 06/06/19 08:05 Toprol Xl PO 12.5 mg DAILY MEKHI Administration Nicotine 14 mg 06/03/19 20:00 06/05/19 19:51 Nicoderm Patch TD 14 mg Q24HR MEKHI Administration Prednisone 20 mg 06/06/19 08:00 06/06/19 08:05 Prednisone PO 20 mg QAM-WM MEKHI Administration Promethazine HCl 25 mg 06/03/19 19:52 06/06/19 08:08 Phenergan PO 25 mg Q6H PRN Administration Nausea/Vomiting - Exam General Appearance: NAD, awake alert Eye: PERRL, anicteric sclera ENT: normocephalic atraumatic, no oropharyngeal lesions Neck: supple, symmetric, no JVD, no thyromegaly, no lymphadenopathy Heart: RRR, no murmur, no gallops, no rubs, normal peripheral pulses Respiratory - other findings: diminished bilat, occasional exp wheeze/rhonchi Gastrointestinal: soft, normal bowel sounds, no palpable masses Gastrointestinal - other findings: mild distention, mild TTP Extremities: no cyanosis, no clubbing, no edema Skin: normal turgor, no lesions, no rashes Neurological: cranial nerve grossly intact, no new deficit Musculoskeletal: normal tone, normal strength, no muscle wasting Psychiatric: normal affect, A&O x 3 Hosp A/P (1) Constipation Code(s): K59.00 - CONSTIPATION, UNSPECIFIED Status: Acute Qualifiers: Constipation type: slow transit constipation Qualified Code(s): K59.01 - Slow transit constipation Plan: Start Magnesium citrate/Dulcolax supp (2) Abdominal pain Code(s): R10.9 - UNSPECIFIED ABDOMINAL PAIN Status: Acute Qualifiers: Abdominal location: generalized Qualified Code(s): R10.84 - Generalized abdominal pain Plan: Secondary to #1, see above (3) Acute exacerbation of chronic obstructive pulmonary disease (COPD) Code(s): J44.1 - CHRONIC OBSTRUCTIVE PULMONARY DISEASE W (ACUTE) EXACERBATION Status: Acute Plan: Continue Duonebs (4) Healthcare-associated pneumonia Code(s): J18.9 - PNEUMONIA, UNSPECIFIED ORGANISM Status: Acute Plan: Continue Cefepime/Vancomycin another 24h then de-escalate (5) Ovarian cancer Status: Acute Plan: Continue chemotherapy as outpt after d/c - Plan 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
[2019-06-06] MEDS ORDERED: Magnesium Citrate 300 ML BOT PO SCH (19:15)
[2019-06-06] MEDS: Nicotine 14 MG PATCH TD SCH (19:59)
[2019-06-06] MEDS: Atorvastatin Calcium 10 MG TAB PO SCH (19:59)
[2019-06-06] MEDS: Bisacodyl 10 MG SUPP PR SCH (20:00)
[2019-06-06] MEDS ORDERED: Vancomycin HCl 1.75 GM in Sodium Chloride 0.9% 500 ML IVPB SCH (20:00)
--- NOTE | 2019-06-07 00:59 | EKG ---
Test Reason : Blood Pressure : / mmHG Vent. Rate : 088 BPM Atrial Rate : 088 BPM P-R Int : 132 ms QRS Dur : 082 ms QT Int : 350 ms P-R-T Axes : 007 017 059 degrees QTc Int : 423 ms Normal sinus rhythm Low voltage QRS Cannot rule out Anterior infarct , age undetermined Abnormal ECG Confirmed by MICHEL CABRALES DO ([id number]), metropolitan editor WILLY VERA ([id number]) on 06/07/2019 12:59:27 AM Referred By: Confirmed By:MICHEL CABRALES DO
[2019-06-07] MEDS: Levothyroxine Sodium 25 MCG TAB PO SCH (05:30)
[2019-06-07] MEDS: Bisacodyl 10 MG SUPP PR SCH ×3 (05:31→20:11)
[2019-06-07] MEDS: Enoxaparin Sodium 40 MG/0.4 ML SYRINGE SC SCH ×2 (08:27→08:30)
[2019-06-07] MEDS: predniSONE 20 MG TAB PO SCH (08:27)
--- NOTE | 2019-06-07 12:49 | PDOC.HOSPP ---
- Subjective Encounter Date: 06/07/19 Encounter Time: 12:00 Subjective: f/u for HCAP/COPD exacerbation and constipation. States she had large BM with Mag Citrate/Dulcolax supp and feels much better. Still coughing but overall feels improved. - Objective Vital Signs & Weight: Vital Signs (12 hours) Temp Pulse Resp BP Pulse Ox 06/07/19 11:18 98 F 82 16 119/68 93 L 06/07/19 08:30 92 L 06/07/19 08:00 98.7 F 97 24 H 106/55 L 92 L 06/07/19 06:38 72 18 92 L Weight Admit Weight 134 lb Weight 134 lb I&O: 06/06/19 06/07/19 06/08/19 06:59 06:59 06:59 Intake Total 720 1390 Balance 720 1390 Result Diagrams: 06/04/19 06:01 06/04/19 06:01 Additional Labs: Microbiology 06/04/19 16:50 Sputum Respiratory Culture - Final 06/03/19 22:36 Venous blood - Left Arm Blood Culture - Preliminary NO GROWTH AT 48 HOURS 06/03/19 20:06 Venous blood - Left Arm Blood Culture - Preliminary NO GROWTH AT 48 HOURS Laboratory Tests 06/03/19 06/04/19 06/04/19 15:56 03:27 03:27 Hgb 10.4 L MCV 99.2 H Plt Count 92 L Vancomycin Trough Ur L.pneumophila Ag Negative Ur Strep pneumoniae Ag NEGATIVE 06/05/19 19:00 Hgb MCV Plt Count Vancomycin Trough 8.4 Ur L.pneumophila Ag Ur Strep pneumoniae Ag Hospitalist ROS - Medication Medications: Active Medications Generic Name Dose Route Start Last Admin Trade Name Freq PRN Reason Stop Dose Admin Acetaminophen 650 mg 06/03/19 22:54 06/03/19 23:35 Tylenol PO 650 mg Q4H PRN Administration Headache/Fever or Pain Hydrocodone Bitart/Acetaminophen 1 tab 06/03/19 19:47 06/06/19 20:00 [place] 10/325 PO 1 tab Q4H PRN Administration Moderate Pain (4-6) Albuterol/Ipratropium 3 ml 06/04/19 11:00 06/07/19 12:15 Duoneb NEB Not Given [id number] MEKHI Atorvastatin Calcium 10 mg 06/04/19 21:00 06/06/19 19:59 Lipitor PO 10 mg HS MEKHI Administration Bisacodyl 10 mg 06/03/19 19:47 06/06/19 08:08 Dulcolax PO 10 mg DAILYPRN PRN Administration Constipation Bisacodyl 10 mg 06/06/19 20:00 06/07/19 11:12 Dulcolax RI Not Given 0400,1200,2000 [facility] Enoxaparin Sodium 40 mg 06/04/19 09:00 06/07/19 08:30 Lovenox SC Not Given 0900 [facility] Fentanyl 25 mcg 06/03/19 19:51 06/04/19 00:00 Sublimaze SLOW IVP 25 mcg Q2H PRN Administration Moderate to Severe Pain (6-10) Cefepime HCl 2 gm/ Sodium 100 mls @ 200 mls/hr 06/04/19 18:00 06/06/19 17:07 Chloride IVPB 100 mls 1800 MEKHI Administration Promethazine HCl 12.5 mg/ 50.5 mls @ 202 mls/hr 06/03/19 22:54 06/03/19 23:35 Sodium Chloride IVPB 50.5 mls Q6H PRN Administration Nausea/Vomiting Vancomycin HCl 1.75 gm/ Sodium 500 mls @ 250 mls/hr 06/06/19 20:00 06/06/19 20:00 Chloride IVPB 500 mls 2000 [facility] Administration Levothyroxine Sodium 25 mcg 06/05/19 06:00 06/07/19 05:30 Synthroid PO 25 mcg 0600 [facility] Administration Metoprolol Succinate 12.5 mg 06/05/19 09:00 06/07/19 08:27 Toprol Xl PO 12.5 mg DAILY [facility] Administration Nicotine 14 mg 06/03/19 20:00 06/06/19 19:59 Nicoderm Patch TD 14 mg Q24HR MEKHI Administration Prednisone 20 mg 06/06/19 08:00 06/07/19 08:27 Prednisone PO 20 mg QAM-WM MEKHI Administration Promethazine HCl 25 mg 06/03/19 19:52 06/06/19 20:01 Phenergan PO 25 mg Q6H PRN Administration Nausea/Vomiting - Exam General Appearance: NAD, awake alert Eye: PERRL, anicteric sclera ENT: normocephalic atraumatic, no oropharyngeal lesions Neck: supple, symmetric, no JVD, no thyromegaly Heart: RRR, no murmur, no gallops, no rubs, normal peripheral pulses Respiratory: tachypneic Respiratory - other findings: diminished in bases, coarse sound in bases, exp wheeze occasionally Gastrointestinal: soft, non-tender, non-distended, normal bowel sounds, no palpable masses Extremities: no cyanosis, no clubbing, no edema Neurological: cranial nerve grossly intact, no new deficit Musculoskeletal: normal tone, normal strength, no muscle wasting Psychiatric: normal affect, A&O x 3 Hosp A/P (1) Constipation Code(s): K59.00 - CONSTIPATION, UNSPECIFIED Status: Acute Qualifiers: Constipation type: slow transit constipation Qualified Code(s): K59.01 - Slow transit constipation Plan: Resolving, continue bowel regimen and monitor response (2) Abdominal pain Code(s): R10.9 - UNSPECIFIED ABDOMINAL PAIN Status: Acute Qualifiers: Abdominal location: generalized Qualified Code(s): R10.84 - Generalized abdominal pain Plan: Improved after BM, continue supportive measures (3) Acute exacerbation of chronic obstructive pulmonary disease (COPD) Code(s): J44.1 - CHRONIC OBSTRUCTIVE PULMONARY DISEASE W (ACUTE) EXACERBATION Status: Acute Plan: Continue pulmonary support with Duonebs/Prednisone (4) Healthcare-associated pneumonia Code(s): J18.9 - PNEUMONIA, UNSPECIFIED ORGANISM Status: Acute Plan: Continue Cefepime/Vancomycin, O2 supplementation, Duonebs (5) Ovarian cancer Status: Acute Plan: Outpt follow with medical oncology - Plan continue antibiotics, 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
[2019-06-07] MEDS: Cefepime 2 GM in Sodium Chloride 0.9% 100 ML IVPB SCH (18:28)
--- NOTE | 2019-06-07 19:35 | PRG ---
DATE OF SERVICE: 06/07/2019 SERVICE: Pulmonary Medicine. INTERVAL HISTORY: The patient has absolutely no conversational dyspnea. She is still coughing and not generating phlegm. She denies any chest discomfort, nausea, or vomiting otherwise. She is returning to her usual state of health. She is on room air currently, and her saturations are fantastic. Apparently, she approached 88% when she was having a coughing fit. When she liberated some phlegm, her saturations popped right back up. She indicates that she is upset with all of the different things that have been changed to her routine. She is taking all of her home respiratory medications. PHYSICAL EXAMINATION: VITAL SIGNS: Afebrile, pulse 82, blood pressure 119/68, respirations 16, saturation 93% on room air. GENERAL: The patient is awake and alert, in no apparent distress. LUNGS: There is absolutely outstanding air entry. There is a little bit of wheezing, but not much of a prolonged expiratory phase. Rhonchi are minimal and then cleared with cough. HEART: Normal rate, regular. ABDOMEN: Soft, nontender, nondistended. Bowel sounds are positive. MUSCULOSKELETAL: No cyanosis or clubbing. There is no pitting in the bilateral lower extremities. NEUROLOGIC: Grossly nonfocal. IMAGING DATA: CT of the chest demonstrates dense infiltrate in the left lower lobe. Patulous esophagus. I do not see any evidence of significant bronchiectasis throughout bilateral lung vera. ASSESSMENT: 1. Acute hypoxic respiratory failure, resolved. 2. Chronic obstructive pulmonary disease with acute exacerbation. 3. Healthcare-associated pneumonia of the left lower lobe. 4. Ovarian cancer. DISCUSSION AND PLAN: I will put her on some med-nebs. Prednisone will be continued. We will repeat a sputum for Gram stain and culture to see now that she is liberating significant amounts of sputum. All culture results remain negative to date. She is clear from inflammatory profile. As such, I think it would be reasonable to transition over to p.o. medications to complete a 7-day course. Dr. Keller will resume coverage in the morning. Job ID: [id number]
[2019-06-07 19:40] LABS: Vancomycin, Trough 18.5 ug/mL
[2019-06-07] MEDS: Atorvastatin Calcium 10 MG TAB PO SCH (19:46)
[2019-06-07] MEDS: guaiFENesin ER 600 MG TAB PO SCH (19:47)
[2019-06-07] MEDS: Promethazine 25 MG TAB PO PRN (19:47)
[2019-06-07] MEDS: Nicotine 14 MG PATCH TD SCH (19:47)
[2019-06-07] MEDS ORDERED: predniSONE 20 MG TAB PO SCH (20:00)
[2019-06-07] MEDS: HYDROcodone/Acetaminophen 10/325 mg Tablet PO PRN (20:07)
[2019-06-07] MEDS: Vancomycin HCl 1 GM in Premix Bag 1 BAG IVPB SCH (20:12)
[2019-06-08] MEDS: Bisacodyl 10 MG SUPP PR SCH ×2 (05:19→09:57)
[2019-06-08] MEDS ORDERED: Cefepime 2 GM in Sodium Chloride 0.9% 100 ML IVPB SCH (06:00)
[2019-06-08] MEDS: Enoxaparin Sodium 40 MG/0.4 ML SYRINGE SC SCH (07:23)
[2019-06-08] MEDS: Vancomycin HCl 1 GM in Premix Bag 1 BAG IVPB SCH (07:57)
[2019-06-08] MEDS: guaiFENesin ER 600 MG TAB PO SCH (07:57)
[2019-06-08] MEDS ORDERED: predniSONE 20 MG TAB PO SCH (08:00)
--- NOTE | 2019-06-08 08:41 | PRG ---
DATE OF SERVICE: 06/08/2019 SUBJECTIVE: Rere Matias, this morning, she is much improved. OBJECTIVE: VITAL SIGNS: Temperature 97, pulse 80, respirations 16, blood pressure 114/78. CHEST: There is an occasional wheeze. CARDIAC: Normal S1, S2. No gallops. ABDOMEN: No masses. IMPRESSION: 1. Chronic obstructive pulmonary disease exacerbation. 2. Abdominal pain, questionable left-sided infiltrate. So far, all cultures are negative. I would suggest plan to discontinue antibiotics, p.o. medicine, home anytime. Job ID: [id number]
[2019-06-08] MEDS: Cefdinir 300 MG CAP PO SCH ×2 (09:02→16:50)
[2019-06-08] MEDS ORDERED: Levothyroxine Sodium 25 MCG TAB PO SCH (10:00)
[2019-06-08 16:15] VITALS: BP 144/74; TEMP 98
--- NOTE | 2019-06-09 02:51 | DIS ---
DATE OF ADMISSION: 06/03/2019 DATE OF DISCHARGE: 06/08/2019 DISCHARGE DIAGNOSES: 1. Acute chronic obstructive pulmonary disease exacerbation, improved. 2. Healthcare-associated pneumonia, suspected gram-positive cocci. 3. Abdominal pain secondary to constipation, improved. 4. Ovarian cancer. 5. Acute on chronic hypoxic respiratory failure, on chronic oxygen supplementation. CONSULTATIONS: 1. Dr. Keller and Dr. Sharma with Pulmonology Service. 2. Medical Oncology Service. PERTINENT LABORATORY AND X-RAY FINDINGS: CBC showed a white blood cell count ranged between 4.5 to 6.6, hemoglobin ranged between 9.4 to 10.4. Urine Legionella and Streptococcus pneumonia antigen negative, 06/04/2019. Blood cultures x2 dated 06/03/2019 showed no growth at 40 hours. Respiratory culture dated 06/04/2019 showed moderate normal respiratory amanda. CT of the chest dated 06/03/2019 showed complete consolidation and collapse of the left lower lobe. CT of the abdomen and pelvis dated 06/03/2019 showed no acute intraabdominal process. HOSPITAL COURSE: The patient was initially admitted after presenting with abdominal pain, nausea, shortness of breath and productive cough. The patient underwent general evaluation including chest imaging with CT imaging showing collapse of the left lower lobe with dense consolidation. The patient was initiated on treatment for healthcare-associated pneumonia with cefepime and vancomycin. The patient received bronchodilator therapy with DuoNebs and Solu-Medrol. The patient was evaluated by the Pulmonology Service with recommendations to continue IV antibiotic therapy and general pulmonary supportive management. Sputum culture was unrevealing and blood cultures remain negative x2. The patient continued on oxygen supplementation as well as bronchodilator therapy with slowing clinical improvement. The patient also received supportive management for abdominal pain, undergoing CT imaging of the abdomen and pelvis showing no acute process. The patient was noted with constipation, resolving with bowel stimulants and magnesium citrate. Overall, the patient did remain clinically stable during the hospital course tolerating regular oral intake with stable vital signs. I have examined the patient at the time of discharge and discussed followup instructions. The patient verbalized understanding and agreement, ready for discharge on 06/08/2019. DISCHARGE MEDICATIONS: 1. Prednisone 20 mg 2 tablets p.o. daily x5 days, followed by 1 tablet p.o. daily x5 days, followed by 10 mg p.o. daily. 2. Omnicef 300 mg p.o. b.i.d. x10 days. 3. Mucinex extended release 600 mg p.o. b.i.d. 4. Incruse Ellipta 62.5 mcg inhaled daily. 5. Metoprolol succinate 12.5 mg p.o. daily. 6. Levothyroxine 25 mcg p.o. daily. 7. DuoNeb 3 mL nebulized q.4 hours p.r.n. 8. [place] 7.5/325 mg half a tablet p.o. t.i.d. p.r.n. 9. Advair Diskus one inhalation b.i.d. 10. Flexeril 10 mg p.o. t.i.d. p.r.n. 11. Lipitor 10 mg p.o. at bedtime. 12. ProAir HFA 1 to 2 puffs inhaled q.4 hours p.r.n. FOLLOWUP: The patient may follow up with her primary care provider, Dr. Shahnaz Magallon within 7 days of discharge. The patient will follow up with Dr. Fransisca Redman with Medical Oncology Service on 06/09/2019 at 1:30 p.m. CONDITION ON DISCHARGE: Stable. ACTIVITY: Ad-mahendra. DIET: Regular. CODE STATUS: Full. DISPOSITION: To home, 06/08/2019. TIME SPENT: Total time preparing and coordinating discharge, 34 minutes. Job ID: [id number]
[2019-06-09] MEDS ORDERED: Levothyroxine Sodium 25 MCG TAB PO SCH (06:00)
== END 2019-06-08 17:00 | disposition home health service (06) | DRG 193 ==
LOC: ERS 14:07 → T4-B 19:01
PROVIDERS: ADMIT Internal Medicine; ATTEND Internal Medicine
DX: J15.9 Unspecified bacterial pneumonia (principal); J96.21 Acute and chronic respiratory failure with hypoxia; J44.1 Chronic obstructive pulmonary disease with (acute) exacerbation; J44.0 Chronic obstructive pulmonary disease with (acute) lower respiratory infection; J98.11 Atelectasis; C56.9 Malignant neoplasm of unspecified ovary; Y95 Nosocomial condition; E03.9 Hypothyroidism, unspecified; F17.210 Nicotine dependence, cigarettes, uncomplicated; F41.9 Anxiety disorder, unspecified; I50.9 Heart failure, unspecified; I11.0 Hypertensive heart disease with heart failure; K59.01 Slow transit constipation; Z85.41 Personal history of malignant neoplasm of cervix uteri; Z85.3 Personal history of malignant neoplasm of breast; Z79.899 Other long term (current) drug therapy; Z79.51 Long term (current) use of inhaled steroids; Z79.890 Hormone replacement therapy; Z90.710 Acquired absence of both cervix and uterus; Z88.5 Allergy status to narcotic agent; Z88.8 Allergy status to other drugs, medicaments and biological substances; Z90.49 Acquired absence of other specified parts of digestive tract
CPT/HCPCS: 71045; 71250; 74177; 80048; 80053; 80202; 81001; 81015; 82550; 83605; 83690; 84484; 85025; 85610; 85730; 86850; 86900; 86901; 87040; 87070; 87205; 87449; 87899; 93005; 93010; 94640; 96361; 96365; 96375; 96376; J0692; J1642; J1650; J1956; J2550; J2930; J3010; J3370; J3490; J7050; J7512; J7620; J7626; Q0169; Q9967

== ENCOUNTER 2019-07-27 08:22 | Outpatient (CLI) | payer MEDICARE, MEDICAID ==
[2019-07-27] MEDS ORDERED: Iopamidol 370 76% 100 ML VIAL ONE (10:10)
--- NOTE | 2019-07-27 10:59 | CT ---
CT CHEST WITH IV CONTRAST CT ABDOMEN WITH IV CONTRAST CT PELVIS WITH IV CONTRAST: HISTORY: Malignant neoplasm of upper outer quadrant of right female breast. Malignant neoplasm of unspecified ovary. COMPARISON: CT chest, abdomen, and pelvis of 04/21/2019 and 06/03/2019. FINDINGS: The stent graft in the thoracoabdominal aorta is again seen with the distal thoracic aorta aneurysm m easuring 5.4 x 5 cm and upper abdominal and aortic aneurysm measuring 4.7 x 5.4 cm. The right perica rdial cystic mass is stable measuring 5.8 cm. The aortic arch measures about 5 cm and is stable. The left precarinal lymph node is stable measuring about 12 mm. No new intrathoracic or axillary lym phadenopathy is seen. No pleural effusions are seen. Emphysematous changes are again seen. There has been interval resolution of the consolidation in the left lower lobe noted on the previous exam of 06/03/2019. No lung nodules or masses are seen. The liver, spleen, pancreas, adrenal glands, and kidneys are normal. The patient is post cholecystec jennifer. The patient is post cholecystectomy and hysterectomy. No free air, free fluid, or lymphadenopathy is seen in the abdomen or pelvis. The small bowel loops are not abnormally dilated. There is colonic diverticulosis. No osteolytic or osteoblastic lesions are seen. IMPRESSION: No evidence of recurrent or metastatic disease. POS: [facility]
== END 2019-07-27 08:23 | disposition home or self-care (01) ==
LOC: CT 08:22
PROVIDERS: ATTEND Internal Medicine Hematology & Oncology
DX: C56.9 Malignant neoplasm of unspecified ovary (principal); C50.411 Malignant neoplasm of upper-outer quadrant of right female breast; S92.302S Fracture of unspecified metatarsal bone(s), left foot, sequela; G89.29 Other chronic pain; Z79.899 Other long term (current) drug therapy
CPT/HCPCS: 71260; 74177; Q9967

== ENCOUNTER 2019-07-31 08:15 | Outpatient (CLI) | payer MEDICARE, MEDICAID ==
--- NOTE | 2019-07-31 11:24 | PET ---
Radionucleotide PET scan with CT attenuation correction HISTORY: Malignant neoplasm of the ovary. Breast cancer. Rising CEA 125. Restaging. COMPARISON: CT exams from 07/27/2019 and 01/24/2019. FINDINGS: Physiologic uptake of radiotracer throughout the enteric system and along each urinary trac t. Physiologic uptake also seen at the larynx and muscular uptake at the right thigh. Activity is noted around hemostasis clips at the right upper anterior chest. Uptake along the lower greater curvature of the stomach is noted, max SUV 3.3, without mass visible o n this scan or recent diagnostic CT studies. Uptake is likely physiologic. Immediately superior to the far posterior aspect of the urinary bladder, a focal area of increased ra diotracer uptake, max SUV 6.0, is associated with an irregular shaped, well-circumscribed soft tissue density mass that is 2.5 cm length by 1.5 cm depth by 1.3 cm width. While present in retrospec t on 07/27/2019 CT scan, it was not evident on prior CT exams. No other areas of abnormal uptake. Nondiagnostic CT attenuation correction images show findings better detailed on recent diagnostic CT exams. IMPRESSION : Hypermetabolic new small soft tissue density mass immediately superior to the posterior aspect of the urinary bladder. In the setting of prior ovarian cancer and rising CEA 125, recurrent neoplasm is suspected.
== END 2019-07-31 08:16 | disposition home or self-care (01) ==
LOC: PET 08:15
PROVIDERS: ATTEND Internal Medicine Hematology & Oncology
DX: C56.9 Malignant neoplasm of unspecified ovary (principal); C50.919 Malignant neoplasm of unspecified site of unspecified female breast
CPT/HCPCS: 78815; A9552

== ENCOUNTER 2019-10-29 09:52 | Outpatient (CLI) | payer MEDICARE, MEDICAID ==
--- NOTE | 2019-10-29 12:14 | PET ---
Nuclear medicine FDG PET/CT: (Positron emission tomography and computed tomography) DATE: 10/29/2019 HISTORY: 64-year-old female with C 56.9 ovarian cancer. Evaluate response to treatment. COMPARISON: 07/31/2019 TECHNIQUE: IV injection of F-18 fluorodeoxyglucose (FDG) dose: 10.2 mCi. PET scan and attenuation correction CT performed from skull base to proximal thighs. FINDINGS: SUV (standard uptake values) numbers given are maximum SUVs. QCLR used. On the prior PET report of 07/31/2019, a small focus of increased uptake was noted slightly superior t o the posterior dome of the urinary bladder. The soft tissue density was visualized in retrospect on the CT of 07/27/2019, but it is very difficult to identify on the noncontrast, nondiagnostic attenu ation correction CT's of the current PET scan and of the 07/31/2019 PET scan. The SUV was given as 6.0 on the prior study, but it is possible that this value was skewed high because of inclusion of ac tivity of urine in the adjacent bladder. The true value may have been closer to 3.5 SUV. On the current study, the SUV measures 4.5. There is no evidence of hypermetabolic iliac chain or retroperitoneal lymphadenopathy. There are no s uspicious foci of increased uptake in the abdomen, chest, or neck. Again noted is the diffuse fusiform aneurysm involving aortic arch and the entire descending thoracic aorta, and upper abdominal aorta, treated with stent graft. IMPRESSION: 1) small focus of increased uptake slightly superior to the posterior aspect of the dome of the urina ry bladder. It is uncertain whether or not this is truly a focus of malignant activity. If it is, the degree of FDG uptake has probably worsened. 2) no other regions of suspicious activity in the rest of the body. 3) thoracic and abdominal aortic aneurysm treated with endograft.
== END 2019-10-29 09:53 | disposition home or self-care (01) ==
LOC: PET 09:52
PROVIDERS: ATTEND Internal Medicine Hematology & Oncology
DX: C56.9 Malignant neoplasm of unspecified ovary (principal); C50.411 Malignant neoplasm of upper-outer quadrant of right female breast; R94.8 Abnormal results of function studies of other organs and systems
CPT/HCPCS: 78815; 80053; 82248; 83615; 84100; 84550; 86304; A9552

== ENCOUNTER 2020-01-12 09:54 | Inpatient (IN) | payer MEDICARE, MEDICAID, OTHER ==
[2020-01-12] MEDS ORDERED: Albuterol Sulfate 2.5 mg/3 ml Neb ONE (10:29)
[2020-01-12] MEDS ORDERED: HYDROcodone/Acetaminophen 5/325 mg Tablet ONE (10:55)
[2020-01-12 11:05] LABS: Hemoglobin 12.2 g/dL (12.0-16.0); Mean Corpuscular Hemoglobin 34.7 pg (27.0-31.0); Mean Corpuscular Volume 99.2 fL (78.0-98.0); RBC Distribution Width 12.7 % (11.5-14.5); Red Blood Cell (RBC) Count 3.51 mill/uL (4.20-5.40); White Blood Cell (WBC) Count 4.8 thou/uL (4.8-10.8)
[2020-01-12 11:28] LABS: ALT (SGPT) 7 U/L (8-55); AST (SGOT) 17 U/L (5-34); Albumin 3.7 g/dL (3.4-4.8); Alkaline Phosphatase 64 U/L (40-110); Anion Gap 13 mmol/L (10-20); BUN (Urea Nitrogen) 30 mg/dL (9.8-20.1); Bilirubin, Total 0.5 mg/dL (0.2-1.2); CK (CPK) 97 U/L (29-168); Calc. Creatinine Clearance 0 mL/min (70-130); Calcium 8.5 mg/dL (7.8-10.44); Carbon Dioxide 21 mmol/L (23-31); Chloride 109 mmol/L (98-107); Estimated GFR-MDRD 38; Globulin 2.1 g/dL (2.4-3.5); Glucose 78 mg/dL (80-115); Lipase 21 U/L (8-78); Potassium 4.6 mmol/L (3.5-5.1); Protein, Total 5.8 g/dL (6.0-8.3); Sodium 138 mmol/L (136-145)
[2020-01-12] MEDS ORDERED: Metoprolol Tartrate 5 MG/5 ML VIAL ONE (11:34)
--- NOTE | 2020-01-12 11:34 | RAD ---
CHEST 1 VIEW: INDICATION: History of abdominal pain and irregular lung sounds. COMPARISON: Prior exam dated 06/03/2019. FINDINGS: Midline sternotomy changes, right chest wall surgical clips, endovascular stent, and left chest wall port is stable-appearing. Mild cardiomegaly is stable. No consolidation, pleural effusion, or pneum othorax are evident. Chronic lung changes are stable. No acute osseous abnormality is evident. IMPRESSION: No definite acute cardiopulmonary abnormality. POS: [facility]
[2020-01-12 11:47] LABS: #Eosinphils 0.1 thou/uL (0.0-0.7); #Monocytes 0.4 thou/uL (0.11-0.59); #Neutrophils 3.3 thou/uL (1.40-6.50); %Eosinophils 2.9 % (0.0-10.0); %Lymphocytes 20.2 % (21.0-51.0); %Monocytes 7.4 % (0.0-10.0); %Neutrophils 68.5 % (42.0-75.0); MDiff Complete? YES; Mean Platelet Volume 9.7 fL (7.4-10.4); Platelet Count 85 thou/uL (130-400); Platelet Morphology Comment Appears Decreased; Polychromasia SLIGHT = 2-3 cells (100X) (0-2/hpf)
--- NOTE | 2020-01-12 12:10 | CT ---
CT angiogram chest with IV contrast and 3-D imaging CT arteriogram abdomen with IV contrast and 3-D imaging HISTORY: Chest and abdomen pain with radiation to the back. FINDINGS: There is good contrast opacification of the aorta with normal branching of the great vessel s at the aortic arch. Endovascular stent remains in place from the distal portion of the aortic arch to the aortic bifurcation. Internal thrombus along the level of the abdominal aorta has thickene d slightly since the prior study but remains smoothly marginated. No evidence of dissection. Aneurysmal dilatation of the aortic arch immediately proximal to the origin of the stent is stable at 5.1 cm greatest craniocaudal diameter on the coronal reformatted images. Nonenlarged, nonspecific lymph nodes are present throughout the mediastinum. There is partial opacifi cation of the pulmonary arteries without filling defect evident. Mild emphysematous change at the lung apices. Postoperative changes of the lower neck and right supraclavicular level. Left subclavian cardiac elec tronic device wires partially visualized. Abdominal aorta is patent. Normal appearance of the visceral arterial origins. Scattered mild calcifi cation. Gallbladder surgically absent with associated distention of the biliary system. Tiny cyst at the late ral cortex of the left kidney is stable. Large amount stool is apparent throughout the colon. The pelvis was not imaged. IMPRESSION : Stable CT appearance of the thoracic aortic aneurysm and aortic stent. Slight interval increase in sm ooth internal thrombus. No evidence of dissection or other acute vascular abnormality. Chronic-type findings are stable. Constipation.
[2020-01-12] MEDS ORDERED: Dexamethasone 10 MG/ML VIAL ONE (12:32)
[2020-01-12] MEDS ORDERED: Diltiazem HCl 125 MG, Admixture Fee 1 EACH in Sodium Chloride 0.9% 100 ML IVPB SCH (12:45)
--- NOTE | 2020-01-12 12:47 | PDOC.HHP ---
Hospitalist HPI - History of Present Illness Abnormal lung sounds, sent by PCP History of Present Illness: PCP: Shahnaz Magallon The patient is a 64-year-old female with a past medical history significant for COPD, ovarian cancer (last chemo 01/04, Dr. Redman), aortic aneurysm (last repair 2015), and hypothyroidism that presents to the emergency department for the above complaint. The patient reports that after her last chemotherapy treatment 1 week ago, she developed intense stomach pain, located generally throughout the abdomen, constant, described as stabbing, exacerbated and relieved by nothing. She reports associated diarrhea, which she says is abnormal for her after her chemotherapy. She reports that she usually is constipated. She reports for the last 4 days having diarrhea, denies any blood or mucus in the stools. Denies vomiting. Yesterday she took 2 Imodium, so she could go to her primary care physician appointment. She has not had any bowel movements today. She also reports having a COPD flare. She reports increased productive cough and increased work of breathing over the past 10 days. She reports taking her duo nebs and albuterol inhaler "day and night". She denies any fever. She reports that she is coughing up thick grayish sputum. Her PCP decided to send her to the emergency department for further evaluation after auscultating her lungs and being told "I think you might have pneumonia". Patient denies any recent fever or chills. Denies any chest pain, heart palpitations, swelling to lower extremities or lightheadedness. ED Course: VITAL SIGNS SatJan 12, 2020 09:55 NEHA Roa Dannette BP: 182/83, Pulse: 77, Resp: 19, Temp: 98.9 (Oral), Pain: 9, O2 sat: 96 on (Room Air), Time: 01/12/2020 09:55. VITAL SIGNS SatJan 12, 2020 11:39 NEHA Peck Mckenna BP: 200/114, Time: 01/12/2020 11:39. VITAL SIGNS SatJan 12, 2020 12:36 NEHA Peck Mckenna BP: 197/90, Pulse: 66, Time: 01/12/2020 12:36 Medication administration: dilTIAZem intravenous 10 mg IV Fluid Infusion Acknowledged 12:34 01/12/2020 Decadron Phosphate injection 10mg mg IV Push Given 12:36 01/12/2020 metoprolol tartrate intravenous 5 mg IV Push Given 11:38 01/12/2020 [place] 5/325 tab(s) Oral Given 10:58 01/12/2020 sodium chloride 0.9 % intravenous 1 L IV Fluid Infusion Given 10:40 01/12/2020 DuoNeb 3 mL Nebulize Given 10:38 01/12/2020 albuterol sulfate inhalation 5 mg Nebulize Given 10:38 01/12/2020 Hospitalist ROS - Review of Systems Constitutional: denies: fever, chills Respiratory: reports: cough (Productive), shortness of breath, sputum (Grayish). denies: hemoptysis Cardiovascular: denies: chest pain, palpitations, edema, light headedness Gastrointestinal: reports: abdominal pain (Generalized), diarrhea. denies: vomiting Genitourinary: denies: dysuria, hematuria Neurological: denies: weakness, incoordination, change in speech All other systems reviewed; all pertinent +/- noted in HPI/Subj - Medication Medications: ProAir HFA HFA AEROSOL WITH ADAPTER (GRAM) : Strength - 90 mcg : INHALATION Patient Dose: Unknown. Advair Diskus BLISTER, WITH INHALATION DEVICE : Strength - 500 mcg-50 mcg/Dose : INHALATION Patient Dose: Unknown. Incruse Ellipta 1 inhalation IH daily atorvastatin TABLET : Strength - 10 mg : ORAL Patient Dose: 10 mg p.o. nightly levothyroxine oral TABLET : Strength - 25 mcg : ORAL Patient Dose: 25 mcg p.o. every morning meTOPROLOL succinate TABLET, EXTENDED RELEASE 24 HR : Strength - 25 mg : ORAL Patient Dose: 12.5 mg p.o. daily DuoNeb 3 mils nebulized every 4 hours as needed HYDROcodone-acetaminophen TABLET : Strength - 7.5 mg-325 mg : ORAL Patient Dose: 0.5 tabs p.o. 3 times daily as needed Advair Diskus 1 puff inhalation twice daily Phenergan oral TABLET : Strength - 12.5 mg : ORAL Patient Dose: 1 tab(s) Oral every 4 hours prn. Allergies: butorphanol tartrate (Unconfirmed), codeine (Unconfirmed), Demerol (PF), Dilaudid, hydromorphone (Unconfirmed), IV NARCOTICS (Unconfirmed), meperidine HCl (Unconfirmed), morphine, No Pain Injections (Unconfirmed), ondansetron (Unconfirmed), Stadol, mucinex. 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, last treatment 01/24 Breast cancer with mets to the C-spine (last treated 2016)) Hepatobiliary: reports: no pertinent history Psych: reports: no pertinent history Musculoskeletal: reports: no pertinent history Rheumatologic: reports: no pertinent history Renal/: reports: no pertinent history Endocrine: reports: Hypothyroidism - Past Surgical History Past Surgical History: reports: Cholecystectomy, Hysterectomy, Other (Aortic aneurysm repair) - Family History Family History: reports: cancer - Social History Smoking Status: Former smoker (Quit over 10 years ago) Alcohol: reports: None Drugs: reports: none Living Situation: Alone Occupation: Disabled Activity level: independent ambulation - Exam General Appearance: NAD, awake alert Eye: anicteric sclera ENT: normocephalic atraumatic, moist mucosa Neck: supple, symmetric, no JVD Heart: RRR, no murmur, no gallops, no rubs, normal peripheral pulses Respiratory: CTAB Gastrointestinal: soft, non-tender, non-distended, normal bowel sounds, no bruit, no guarding, no rigidity Gastrointestinal - other findings: Eating lunch during examination Extremities: negative: no cyanosis, no edema Neurological: cranial nerve grossly intact, no weakness, no focal deficits Musculoskeletal: normal tone, normal strength Psychiatric: normal affect, A&O x 3 Hospitalist Results - Labs Result Diagrams: 01/12/20 10:36 01/12/20 10:36 Lab results: WBC 4.8 thou/uL (4.8-10.8) 01/12/20 10:36 Hgb 12.2 g/dL (12.0-16.0) 01/12/20 10:36 Hct 34.9 % (36.0-47.0) L 01/12/20 10:36 MCV 99.2 fL (78.0-98.0) H 01/12/20 10:36 Plt Count 85 thou/uL (130-400) L 01/12/20 10:36 Neutrophils % 68.5 % (42.0-75.0) 01/12/20 10:36 Sodium 138 mmol/L (136-145) 01/12/20 10:36 Potassium 4.6 mmol/L (3.5-5.1) 01/12/20 10:36 Chloride 109 mmol/L (98-107) H 01/12/20 10:36 Carbon Dioxide 21 mmol/L (23-31) L 01/12/20 10:36 BUN 30 mg/dL (9.8-20.1) H 01/12/20 10:36 Creatinine 1.41 mg/dL (0.6-1.1) H 01/12/20 10:36 Glucose 78 mg/dL (80-115) L 01/12/20 10:36 Lactic Acid 0.8 mmol/L (0.5-2.2) 01/12/20 10:36 Calcium 8.5 mg/dL (7.8-10.44) 01/12/20 10:36 Total Bilirubin 0.5 mg/dL (0.2-1.2) 01/12/20 10:36 AST 17 U/L (5-34) 01/12/20 10:36 ALT 7 U/L (8-55) L 01/12/20 10:36 Alkaline Phosphatase 64 U/L (40-110) 01/12/20 10:36 Creatine Kinase 97 U/L (29-168) 01/12/20 10:36 Troponin I Less than 0.010 ng/mL (< 0.028) 01/12/20 10:36 B-Natriuretic Peptide 313.3 pg/mL (0-100) H 01/12/20 10:36 Serum Total Protein 5.8 g/dL (6.0-8.3) L 01/12/20 10:36 Albumin 3.7 g/dL (3.4-4.8) 01/12/20 10:36 Lipase 21 U/L (8-78) 01/12/20 10:36 - EKG Interpretation EKG: Normal sinus rhythm pulse 68 no STEMI. - Radiology Interpretation CT scan - chest Status: report reviewed by me Additional Comment: IMPRESSION : Stable CT appearance of the thoracic aortic aneurysm and aortic stent. Slight interval increase in smooth internal thrombus. No evidence of dissection or other acute vascular abnormality. Chronic-type findings are stable. Constipation. I Hospitalist H&P A/P - Problem (1) Hypertensive urgency Code(s): I16.0 - HYPERTENSIVE URGENCY Status: Acute (2) Acute abdominal pain Code(s): R10.9 - UNSPECIFIED ABDOMINAL PAIN Status: Acute (3) COPD exacerbation Code(s): J44.1 - CHRONIC OBSTRUCTIVE PULMONARY DISEASE W (ACUTE) EXACERBATION Status: Acute (4) Acute kidney injury superimposed on chronic kidney disease Code(s): N17.9 - ACUTE KIDNEY FAILURE, UNSPECIFIED; N18.9 - CHRONIC KIDNEY DISEASE, UNSPECIFIED Status: Acute (5) Ovarian cancer Status: Chronic (6) Aortic aneurysm Code(s): I71.9 - AORTIC ANEURYSM OF UNSPECIFIED SITE, WITHOUT RUPTURE Status: Chronic - Plan Plan: 64/F with PMH COPD, aortic aneurysm, and ovarian cancer presents for abdominal pain, shortness of breath and cough. Admit telemetry floor, inpatient status. Expected length of stay greater than 2 midnights. Presented hypertensive, NL HR, RR, SPO2, afebrile. EKG NSR. CTA stable thoracic aortic aneurysm and aortic stent. Slight interval increase in smooth internal thrombus. No evidence of dissection or other acute vascular abnormality. Chronic time findings are stable. Constipation. Troponin negative, BNP 313, LA 0.8, diabetes 4.8, platelets 85 BUN 30, creatinine 1.41, glucose 78 #Hypertensive urgency SBP 160s to 180s upon examination. Start amlodipine and hydralazine p.o. scheduled. Monitor blood pressure. #Acute abdominal pain CTA showed stable chronic findings as above. Constipation noted. Fleet enema x1. Senokot as needed. #COPD exacerbation Start Levaquin. Solu-Medrol, DuoNeb scheduled. Oxygen as needed. Consult pulmonology. #MEAGHAN on CKD stage III Presented creatinine 1.41, was 1.05 on 11/10 received 1L NS in ED Tolerating po intake well Recheck level in a.m. #Ovarian cancer Takes unknown daily chemotherapy pill. Gets scheduled chemotherapy q. 21 days, last treatment 01/04. Followed by Dr. eRdman. #Aortic aneurysm Stable chronic findings on CTA. Heparin for DVT prophylaxis. No GI prophylaxis. Full code. Designated medical decision-maker is her Sister Radha Medel at [phone]. Discussed the case with Dr. Wilson.
[2020-01-12] MEDS ORDERED: Acetaminophen 325 MG TAB PO PRN (13:23)
[2020-01-12] MEDS ORDERED: HYDROcodone/Acetaminophen 5/325 mg Tablet PO PRN (13:23)
[2020-01-12] MEDS ORDERED: Senokot S 8.6-50 MG TAB PO PRN (13:23)
[2020-01-12] MEDS ORDERED: Sodium Chloride 0.9% 1,000 ML IV SCH (13:30)
[2020-01-12] MEDS ORDERED: Iopamidol-370 76% 500 ML 1 ML ONE (13:32)
[2020-01-12] MEDS ORDERED: Amlodipine 10 MG TAB PO SCH (14:30)
[2020-01-12] MEDS ORDERED: Magnesium 2 GM/50 ML 2 GM in Premix Bag 1 BAG IVPB SCH (15:00)
[2020-01-12] MEDS: hydrALAZINE 25 MG TAB PO SCH ×2 (15:21→21:32)
[2020-01-12 15:59] LABS: Troponin I 0.013 ng/mL (< 0.028)
[2020-01-12] MEDS ORDERED: Fleet Enema 133 ML BOT PR SCH (17:00)
[2020-01-12 18:16] LABS: Troponin I Less than 0.010 ng/mL (< 0.028)
[2020-01-12] MEDS: HYDROcodone/Acetaminophen 5/325 mg Tablet PO PRN (18:54)
[2020-01-12] MEDS: methylPREDNISolone Sod Succ 40 MG VIAL IVP SCH (19:02)
--- NOTE | 2020-01-12 20:31 | CON ---
DATE OF CONSULTATION: HISTORY OF PRESENT ILLNESS: Rere Matias is a 64-year-old female, who was sent from her primary care physician's office to the ER after she was found to have significant respiratory distress and a cough of 10 days nonproductive. No fever or chills. She is on prednisone 5 mg a day. On several different inhalers without much relief. She had a CT chest done as well as chest x-ray, which did not show any acute infiltrates. PAST MEDICAL HISTORY: Breast carcinoma, end-stage COPD, thoracic aneurysm, ovarian cancer. PREVIOUS SURGERIES: Thoracic aortic surgery, cholecystectomy, abdominal aneurysm surgery, gallbladder surgery, cardiac ablation. Presently on chemotherapy, followed by Oncology. HOME MEDICATIONS: 1. Prednisone 5. 2. Mucinex 600. 3. Incruse one puff a day. 4. Metoprolol 12.5. 5. Synthroid 25. 6. DuoNeb. 7. Advair 500. 8. Flexeril. ALLERGIES: DEMEROL, CODEINE, MORPHINE, NARCOTICS. SOCIAL HISTORY: Former smoker, recently quit smoking. No alcohol abuse. PHYSICAL EXAMINATION: GENERAL: In mild distress. VITAL SIGNS: Temperature 98, pulse 67, respiratory rate 22, saturations on room air, blood pressure 166/79. CHEST: Diffuse wheezing. CARDIAC: Normal S1 and S2. No gallops. ABDOMEN: No masses. LABORATORY DATA: White count is normal. Creatinine 1.4. X-ray did not show any acute infiltrates. ASSESSMENT AND PLAN: Chronic obstructive pulmonary disease exacerbation, bronchitis, former smoker, history of ovarian carcinoma, history of hypertension, history of coronary artery disease, history of chronic renal failure. I have added magnesium and Dulera to her present regime. Continue aggressive neb treatments, supportive care. We will follow. Consultation note 70 minutes, 50% direct patient care. Job ID: [id number]
[2020-01-12] MEDS: Nicotine 14 MG PATCH TD SCH (21:30)
[2020-01-12] MEDS: Promethazine 25 MG TAB PO SCH (21:31)
[2020-01-12] MEDS: Heparin 5,000 UNITS/ML VIAL SC SCH (21:31)
[2020-01-12] MEDS: Atorvastatin Calcium 40 MG TAB PO SCH (21:32)
[2020-01-12] MEDS: Atorvastatin Calcium 10 MG TAB PO SCH (21:32)
[2020-01-12] MEDS: HYDROcodone/Acetaminophen 7.5/325 mg Tablet PO SCH (21:33)
[2020-01-12] MEDS: Mometasone 200 MCG/Formoterol 5 MCG 120 PUFF INHALER INH SCH (23:26)
[2020-01-13] MEDS: methylPREDNISolone Sod Succ 40 MG VIAL IVP SCH ×2 (00:08→06:10)
[2020-01-13] MEDS: Levothyroxine Sodium 25 MCG TAB PO SCH (06:10)
[2020-01-13] MEDS: Mometasone 200 MCG/Formoterol 5 MCG 120 PUFF INHALER INH SCH ×2 (07:02→18:59)
[2020-01-13 07:46] LABS: #Lymphocytes 0.3 thou/uL (1.20-3.40); #Neutrophils 2.8 thou/uL (1.40-6.50); %Eosinophils 0.3 % (0.0-10.0); %Lymphocytes 8.7 % (21.0-51.0); %Monocytes 0.5 % (0.0-10.0); %Neutrophils 90.5 % (42.0-75.0); Hemoglobin 11.7 g/dL (12.0-16.0); Mean Corpuscular HGB CONC 34.5 g/dL (32.0-36.0); Mean Corpuscular Hemoglobin 34.8 pg (27.0-31.0); Mean Platelet Volume 9.2 fL (7.4-10.4); Platelet Count 85 thou/uL (130-400); RBC Distribution Width 12.7 % (11.5-14.5); Red Blood Cell (RBC) Count 3.36 mill/uL (4.20-5.40); White Blood Cell (WBC) Count 3.1 thou/uL (4.8-10.8)
[2020-01-13 08:09] LABS: Anion Gap 15 mmol/L (10-20); BUN (Urea Nitrogen) 30 mg/dL (9.8-20.1); Calc. Creatinine Clearance 42 mL/min (70-130); Calcium 8.4 mg/dL (7.8-10.44); Carbon Dioxide 20 mmol/L (23-31); Chloride 108 mmol/L (98-107); Estimated GFR-MDRD 39; Glucose 153 mg/dL (80-115); Potassium 4.6 mmol/L (3.5-5.1); Sodium 138 mmol/L (136-145)
[2020-01-13] MEDS: HYDROcodone/Acetaminophen 7.5/325 mg Tablet PO SCH ×4 (08:25→19:35)
[2020-01-13] MEDS: hydrALAZINE 25 MG TAB PO SCH ×3 (08:37→19:34)
[2020-01-13] MEDS: Amlodipine 10 MG TAB PO SCH (08:38)
[2020-01-13] MEDS: Heparin 5,000 UNITS/ML VIAL SC SCH ×2 (08:40→19:38)
[2020-01-13] MEDS ORDERED: FLU VACC QS2020-21(6MOS UP)/PF 60 MCG/0.5 ML SYRINGE IM ONE (09:00)
[2020-01-13 09:33] LABS: Bacteria/HPF None Seen HPF (None Seen); Bilirubin Negative (Negative); Blood, Urine 3+ (Negative); Clarity Clear (Clear); Glucose, Urine (Dipstick) 30 mg/dL (Negative); Ketone, Urine Negative (Negative); Leukocyte Negative Leu/uL (Negative); Nitrite Negative (Negative); Protein, Urine (Dipstick) 300 mg/dL (Neg-Trace); RBC/HPF 21-50 HPF (0-3); Specific Gravity, Urine 1.032 (1.002-1.036); Squamous Epithelial 0-3 HPF (0-3); Urobilinogen Normal mg/dL (Less than 2); WBC/HPF 0-3 HPF (0-3); pH, Urine 5.5 (5.0-9.0)
[2020-01-13] MEDS ORDERED: guaiFENesin ER 600 MG TAB PO SCH (10:00)
--- NOTE | 2020-01-13 10:10 | PRG ---
DATE OF SERVICE: 01/13/2020 SUBJECTIVE: This morning, she is awake, she is responsive. She is still coughing, wheezing, but is better. Having insomnia from high-dose steroids. OBJECTIVE: VITAL SIGNS: Temperature 97, blood pressure 130/66, pulse 80, respiratory rate 18, sats 92% on 2 L. CHEST: Diffuse wheezing. CARDIAC: Normal S1, S2. No gallops. ABDOMEN: No masses. LABORATORY DATA: White count 3000, platelet count is 85. Creatinine 1.3. ASSESSMENT AND PLAN: 1. Chronic obstructive pulmonary disease exacerbation, bronchitis. 2. History of ovarian carcinoma, on chemotherapy. 3. Thrombocytopenia. Switch over to oral prednisone, antibiotics. Hopefully, she could be discharged home tomorrow if she is stable. Job ID: [id number]
[2020-01-13 11:59] LABS: SARS-CoV-2 MS2 Positive; SARS-CoV-2 N Gene Negative; SARS-CoV-2 S Gene Negative; SARS-CoV-2 by NAA Not Detected (NotDetected); SARS-CoV-2 orf1ab Negative
[2020-01-13] MEDS ORDERED: predniSONE 20 MG TAB PO SCH (12:00)
[2020-01-13] MEDS: HYDROcodone/Acetaminophen 5/325 mg Tablet PO PRN (12:46)
--- NOTE | 2020-01-13 13:17 | PDOC.HOSPP ---
- Subjective Encounter Date: 01/13/20 Encounter Time: 12:20 Subjective: breathing better, is ambulating in room couldn't sleep last night no abd pain or nausea - Objective Vital Signs & Weight: Vital Signs (12 hours) Temp Pulse Resp BP BP Pulse Ox 01/13/20 08:38 79 138/66 01/13/20 08:37 79 138/66 01/13/20 08:00 92 L 01/13/20 07:25 97.9 F 79 16 92 L 01/13/20 07:00 75 18 95 01/13/20 04:58 98.0 F 72 16 144/74 H 95 01/13/20 04:16 95 Weight Weight 138 lb 14.259 oz I&O: 01/12/20 01/13/20 01/14/20 06:59 06:59 06:59 Intake Total 240 Balance 240 Result Diagrams: 01/13/20 04:00 01/13/20 04:00 Hospitalist ROS - Medication Medications: Active Medications Generic Name Dose Route Start Last Admin Trade Name Freq PRN Reason Stop Dose Admin Hydrocodone Bitart/Acetaminophen 1 tab 01/12/20 13:23 01/13/20 12:46 Hydrocodone/Acetaminophen 5/325 Mg Tablet PO 1 tab Q4H PRN Administration Moderate Pain (4-6) Hydrocodone Bitart/Acetaminophen 0.5 tab 01/12/20 21:00 01/13/20 08:36 Hydrocodone/Acetaminophen 7.5/325 Mg Tablet PO 0.5 tab TID MEKHI Administration Amlodipine Besylate 10 mg 01/13/20 09:00 01/13/20 08:38 Amlodipine 10 Mg Tab PO 10 mg DAILY MEKHI Administration Atorvastatin Calcium 10 mg 01/12/20 21:00 01/12/20 21:32 Atorvastatin Calcium 40 Mg Tab PO Not Given HS MEKHI Atorvastatin Calcium 10 mg 01/12/20 21:00 01/12/20 21:32 Atorvastatin Calcium 10 Mg Tab PO 10 mg HS MEKHI Administration Heparin Sodium (Porcine) 5,000 units 01/12/20 21:00 01/13/20 08:40 Heparin 5,000 Units/Ml Vial SC Not Given BID MEKHI Hydralazine HCl 50 mg 01/12/20 15:00 01/13/20 08:37 Hydralazine 25 Mg Tab PO 50 mg TID MEKHI Administration Levothyroxine Sodium 25 mcg 01/13/20 06:00 01/13/20 06:10 Levothyroxine Sodium 25 Mcg Tab PO 25 mcg 0600 MEKHI Administration Metoprolol Succinate 12.5 mg 01/13/20 09:00 01/13/20 08:37 Metoprolol Succinate Xl 25 Mg Tab PO 12.5 mg DAILY MEKHI Administration Mometasone Furoate/Formoterol Fumar 2 puff 01/12/20 18:30 01/13/20 07:02 Mometasone 200 Mcg/Formoterol 5 Mcg 120 Puff Inhaler INH Not Given BID-RT MEKHI Nicotine 14 mg 01/12/20 20:00 01/12/20 21:30 Nicotine 14 Mg Patch TD 14 mg Q24HR MEKHI Administration Prednisone 20 mg 01/13/20 12:00 01/13/20 12:47 Prednisone 20 Mg Tab PO 01/13/20 14:00 20 mg NOW MEKHI Administration Promethazine HCl 25 mg 01/12/20 21:00 01/12/20 21:31 Promethazine 25 Mg Tab PO 25 mg HS MEKHI Administration - Exam General Appearance: awake alert Eye: PERRL, anicteric sclera ENT: no oropharyngeal lesions, moist mucosa Neck: supple, no JVD Heart: RRR, no murmur Respiratory: no wheezes, no rales, rhonchi Gastrointestinal: soft, non-tender, non-distended, normal bowel sounds Extremities: no cyanosis, no edema Neurological: cranial nerve grossly intact, no focal deficits Psychiatric: normal affect, A&O x 3 Hosp A/P (1) COPD exacerbation Code(s): J44.1 - CHRONIC OBSTRUCTIVE PULMONARY DISEASE W (ACUTE) EXACERBATION Status: Acute (2) Anemia Code(s): D64.9 - ANEMIA, UNSPECIFIED Status: Chronic Qualifiers: Anemia type: unspecified type Qualified Code(s): D64.9 - Anemia, unspecified (3) Ovarian cancer Status: Chronic (4) History of aortic aneurysm repair Code(s): Z98.890 - OTHER SPECIFIED POSTPROCEDURAL STATES; Z86.79 - PERSONAL HISTORY OF OTHER DISEASES OF THE CIRCULATORY SYSTEM Status: Chronic (5) Hypothyroidism Code(s): E03.9 - HYPOTHYROIDISM, UNSPECIFIED Status: Chronic Qualifiers: Hypothyroidism type: unspecified Qualified Code(s): E03.9 - Hypothyroidism, unspecified (6) Tobacco abuse Code(s): Z72.0 - TOBACCO USE Status: Chronic (7) Dyslipidemia Code(s): E78.5 - HYPERLIPIDEMIA, UNSPECIFIED Status: Chronic (8) HTN (hypertension) Code(s): I10 - ESSENTIAL (PRIMARY) HYPERTENSION Status: Chronic Qualifiers: Hypertension type: essential hypertension Qualified Code(s): I10 - Essential (primary) hypertension - Plan is on nebs, empiric omnicef, steroids continue home dose of toprol, synthroid, hydralazine, lipitor and norvasc hemostable dc plan in am
[2020-01-13 15:47] VITALS: BMI 21.1
[2020-01-13] MEDS: Albuterol 200 PUFF (6.7GM INHALER) INH SCH ×3 (16:08→21:57)
[2020-01-13] MEDS: ALPRAZolam 0.5 MG TAB PO PRN ×2 (16:09→21:00)
[2020-01-13] MEDS: Cefdinir 300 MG CAP PO SCH (19:34)
[2020-01-13] MEDS: Promethazine 25 MG TAB PO SCH (19:35)
[2020-01-13] MEDS: Atorvastatin Calcium 10 MG TAB PO SCH (19:35)
[2020-01-13] MEDS: Atorvastatin Calcium 40 MG TAB PO SCH (19:38)
[2020-01-13] MEDS: guaiFENesin ER 600 MG TAB PO SCH (19:38)
[2020-01-13] MEDS: Nicotine 14 MG PATCH TD SCH (21:07)
[2020-01-14] MEDS: Albuterol 200 PUFF (6.7GM INHALER) INH SCH ×3 (00:06→10:10)
[2020-01-14] MEDS: Levothyroxine Sodium 25 MCG TAB PO SCH (06:30)
[2020-01-14 07:22] VITALS: BP 127/69; TEMP 98
[2020-01-14] MEDS ORDERED: predniSONE 20 MG TAB PO SCH (08:00)
[2020-01-14] MEDS: Mometasone 200 MCG/Formoterol 5 MCG 120 PUFF INHALER INH SCH (08:01)
[2020-01-14] MEDS ORDERED: Nicotine 14 MG PATCH TD SCH (09:00)
[2020-01-14] MEDS: guaiFENesin ER 600 MG TAB PO SCH ×2 (09:15→09:22)
[2020-01-14] MEDS: Cefdinir 300 MG CAP PO SCH (09:15)
[2020-01-14] MEDS: HYDROcodone/Acetaminophen 7.5/325 mg Tablet PO SCH (09:17)
[2020-01-14] MEDS: Amlodipine 10 MG TAB PO SCH (09:19)
[2020-01-14] MEDS: Heparin 5,000 UNITS/ML VIAL SC SCH (09:20)
[2020-01-14] MEDS: hydrALAZINE 25 MG TAB PO SCH (09:20)
--- NOTE | 2020-01-14 10:17 | PRG ---
DATE OF SERVICE: 01/14/2020 SUBJECTIVE: Rere Matias this morning, she is better, less short of breath. She is still wheezing. OBJECTIVE: VITAL SIGNS: Temperature 98, blood pressure 127/69, pulse 68, saturations 97% on 2 L. CHEST: Wheezing improved. CARDIAC: Normal S1 and S2. No gallops. ABDOMEN: No masses. ASSESSMENT AND PLAN: Chronic obstructive pulmonary disease exacerbation, bronchitis, ongoing tobacco abuse, though apparently better. History of ovarian carcinoma. Pulmonary montel[place], she can be discharged home. She was given a prescription for prednisone 20 mg a total of 60 and 10 mg a total of 60 to be taken as needed. She will see the office as needed. Job ID: [id number]
[2020-01-14 14:05] LABS: SARS-CoV-2 IgG Ab Non-Reactive (NonReactive); SARS-CoV-2 IgG Index 0.01 S/CO (< 1.40)
--- NOTE | 2020-01-14 14:59 | DIS ---
DATE OF ADMISSION: 01/13/2020 DATE OF DISCHARGE: 01/14/2020 DISCHARGE DISPOSITION: Home. PRIMARY DISCHARGE DIAGNOSIS: Chronic obstructive pulmonary disease exacerbation. SECONDARY DISCHARGE DIAGNOSES: History of ovarian cancer on chemotherapy, history of thoracic aneurysm repair, chronic anemia, hypothyroidism, ongoing tobacco abuse, dyslipidemia, hypertension. PROCEDURES DONE DURING HOSPITALIZATION: Chest x-ray done showed no acute cardiopulmonary abnormality. CT dissection protocol done showed stable appearance of thoracic aortic aneurysm and aortic stent. There is slight interval increase internal thrombus. No evidence of dissection or other acute vascular abnormality was seen. Hemoglobin and hematocrit 11 and 33, platelet count is 85, MCV is 101, BUN 30, creatinine 1.3. Troponin x3 negative. TSH is 0.6. COVID-19 PCR was not detected. DISCHARGE MEDICATIONS: 1. Advair Diskus 500/50 mcg two puffs twice daily. 2. Atorvastatin 10 mg p.o. at bedtime. 3. DuoNeb q.4 hours p.r.n. 4. Flexeril 10 mg p.o. three times daily p.r.n. 5. Ellipta inhaler daily. 6. Levothyroxine 25 mcg p.o. daily. 7. Toprol-XL 12.5 mg p.o. daily. 8. [place] p.r.n. for pain. 9. Prednisone tapering dose as prescribed by Dr. Keller. 10. Norvasc 10 mg p.o. daily. ALLERGIES: BUTORPHANOL, MEPERIDINE, CODEINE, ZOFRAN, HYDROMORPHONE. DISCHARGE PLAN: The patient to follow up with her oncologist in 1 week; Dr. Shahnaz Magallon, her primary care physician in 1 week; Dr. Keller in 2 to 3 weeks. INPATIENT CONSULT: Dr. Keller for Pulmonology. BRIEF COURSE DURING HOSPITALIZATION: The patient initially got admitted on 01/12/2020 with complaints of shortness of breath. She was wheezing when she went to see her primary care physician. The patient was essentially admitted for COPD exacerbation. She has ongoing tobacco abuse. She was placed on steroids, nebulizations and empiric antibiotics. She has responded well to above measures. She was also evaluated by Dr. Keller. The patient was counseled with regard to tobacco cessation. She is ambulating and eating well prior to discharge and is wanting to go home today. She has been cleared by Dr. Keller for discharge. Please note, I have seen and examined the patient on the day of discharge. Job ID: [id number] MTDD
--- NOTE | 2020-01-23 13:01 | EKG ---
Test Reason : Blood Pressure : / mmHG Vent. Rate : 068 BPM Atrial Rate : 068 BPM P-R Int : 150 ms QRS Dur : 080 ms QT Int : 418 ms P-R-T Axes : 039 007 035 degrees QTc Int : 444 ms Normal sinus rhythm Possible Anterior infarct , age undetermined Abnormal ECG Confirmed by YOLANDA POSADAS, JOSE ([id number]), editor farm journal HECTOR GÓMEZ ([id number]) on 01/23/2020 1:00:45 PM Referred By: Confirmed By:JOSE GUERRERO MD
== END 2020-01-14 11:31 | disposition home or self-care (01) | DRG 191 ==
LOC: ERS 09:54 → T4-B 12:44 → OBSVTOIN 01-13 11:33
PROVIDERS: ADMIT Internal Medicine; ATTEND Internal Medicine
DX: J44.1 Chronic obstructive pulmonary disease with (acute) exacerbation (principal); N17.9 Acute kidney failure, unspecified; C56.9 Malignant neoplasm of unspecified ovary; E03.9 Hypothyroidism, unspecified; E78.5 Hyperlipidemia, unspecified; Z23 Encounter for immunization; Z20.828 Contact with and (suspected) exposure to other viral communicable diseases; I12.9 Hypertensive chronic kidney disease with stage 1 through stage 4 chronic kidney disease, or unspecified chronic kidney disease; I71.9 Aortic aneurysm of unspecified site, without rupture; K59.00 Constipation, unspecified; N18.30 Chronic kidney disease, stage 3 unspecified; F17.210 Nicotine dependence, cigarettes, uncomplicated; F41.9 Anxiety disorder, unspecified; D63.1 Anemia in chronic kidney disease; Z88.5 Allergy status to narcotic agent; Z88.8 Allergy status to other drugs, medicaments and biological substances; Z90.710 Acquired absence of both cervix and uterus; Z79.890 Hormone replacement therapy; Z79.51 Long term (current) use of inhaled steroids
CPT/HCPCS: 71045; 71275; 72191; 74175; 80048; 80053; 81001; 82550; 83605; 83690; 83880; 84443; 84484; 85025; 86769; 86850; 86900; 86901; 87040; 87149; 87635; 90471; 90662; 93005; 94640; 94644; 96365; 96374; 96375; 96376; G0008; G0378; J1100; J1642; J1956; J2920; J3475; J3490; J7512; J7611; J7620; Q0169; Q9967; U0003

== ENCOUNTER 2020-05-04 11:59 | Emergency (ER) | payer MEDICARE, MEDICAID ==
[2020-05-04 13:13] LABS: #Eosinphils 0.1 thou/uL (0.0-0.7); #Lymphocytes 0.7 thou/uL (1.20-3.40); #Monocytes 0.4 thou/uL (0.11-0.59); #Neutrophils 4.6 thou/uL (1.40-6.50); %Basophils 0.4 % (0.0-1.0); %Eosinophils 2.3 % (0.0-10.0); %Lymphocytes 11.5 % (21.0-51.0); %Monocytes 6.5 % (0.0-10.0); %Neutrophils 79.3 % (42.0-75.0); Hemoglobin 11.9 g/dL (12.0-16.0); Mean Corpuscular HGB CONC 35.7 g/dL (32.0-36.0); Mean Platelet Volume 9.3 fL (7.4-10.4); Platelet Count 91 thou/uL (130-400); RBC Distribution Width 12.6 % (11.5-14.5); White Blood Cell (WBC) Count 5.8 thou/uL (4.8-10.8)
[2020-05-04] MEDS ORDERED: Albuterol 200 PUFF (6.7GM INHALER) ONE (13:14)
[2020-05-04] MEDS ORDERED: Magnesium 2 GM/50 ML BAG (IN WATER) ONE (13:15)
[2020-05-04] MEDS ORDERED: methylPREDNISolone Sod Succ/PF 125 MG/2 ML VIAL ONE (13:15)
[2020-05-04 13:28] LABS: ALT (SGPT) 7 U/L (8-55); AST (SGOT) 21 U/L (5-34); Albumin 3.4 g/dL (3.4-4.8); Alkaline Phosphatase 74 U/L (40-110); Anion Gap 15 mmol/L (10-20); BUN (Urea Nitrogen) 21 mg/dL (9.8-20.1); Bilirubin, Total 0.5 mg/dL (0.2-1.2); Calc. Creatinine Clearance 0 mL/min (70-130); Calcium 8.6 mg/dL (7.8-10.44); Carbon Dioxide 23 mmol/L (23-31); Chloride 105 mmol/L (98-107); Globulin 2.4 g/dL (2.4-3.5); Glucose 86 mg/dL (80-115); Potassium 5.1 mmol/L (3.5-5.1); Protein, Total 5.8 g/dL (5.8-8.1); Sodium 138 mmol/L (136-145)
[2020-05-04 14:31] LABS: SARS-CoV-2 NAA Rapid Test Not Detected (NotDetected)
[2020-05-04] MEDS ORDERED: cefTRIAXone\\ROCEPHIN 1 GM VIAL ONE (14:57)
== END 2020-05-04 16:10 | disposition home or self-care (01) ==
LOC: ERS 11:59
DX: J44.1 Chronic obstructive pulmonary disease with (acute) exacerbation (principal); I72.9 Aneurysm of unspecified site; I10 Essential (primary) hypertension; J44.9 Chronic obstructive pulmonary disease, unspecified; Z87.01 Personal history of pneumonia (recurrent); Z85.43 Personal history of malignant neoplasm of ovary; Z87.891 Personal history of nicotine dependence; Z79.899 Other long term (current) drug therapy; Z79.1 Long term (current) use of non-steroidal anti-inflammatories (NSAID); Z85.3 Personal history of malignant neoplasm of breast; Z79.51 Long term (current) use of inhaled steroids
CPT/HCPCS: 0240U; 71045; 80053; 83880; 84484; 85025; 93005; 36415; 96365; 96366; 96375; J0696; J2930; J3475

== ENCOUNTER 2020-05-30 19:38 | Inpatient (IN) | payer MEDICARE, MEDICAID ==
[2020-05-30 20:22] LABS: #Eosinphils 0.2 thou/uL (0.0-0.7); #Monocytes 0.5 thou/uL (0.11-0.59); #Neutrophils 5.1 thou/uL (1.40-6.50); %Basophils 0.2 % (0.0-1.0); %Eosinophils 3.2 % (0.0-10.0); %Lymphocytes 14.2 % (21.0-51.0); %Monocytes 6.7 % (0.0-10.0); %Neutrophils 75.7 % (42.0-75.0); Hemoglobin 10.1 g/dL (12.0-16.0); Mean Corpuscular HGB CONC 34.4 g/dL (32.0-36.0); Mean Corpuscular Hemoglobin 35.5 pg (27.0-31.0); Mean Platelet Volume 9.8 fL (7.4-10.4); Platelet Count 91 thou/uL (130-400); RBC Distribution Width 13.2 % (11.5-14.5); Red Blood Cell (RBC) Count 2.84 mill/uL (4.20-5.40); White Blood Cell (WBC) Count 6.7 thou/uL (4.8-10.8)
[2020-05-30 21:08] LABS: Albumin 2.8 g/dL (3.4-4.8)
[2020-05-30 21:09] LABS: Chloride 109 mmol/L (98-107); Potassium 4.3 mmol/L (3.5-5.1); Sodium 144 mmol/L (136-145)
[2020-05-30 21:10] LABS: Calcium 7.7 mg/dL (7.8-10.44)
[2020-05-30 21:11] LABS: Globulin 1.7 g/dL (2.4-3.5); Glucose 104 mg/dL (80-115); Protein, Total 4.5 g/dL (5.8-8.1)
[2020-05-30 21:12] LABS: Anion Gap 15 mmol/L (10-20); Bilirubin, Total 0.3 mg/dL (0.2-1.2); Carbon Dioxide 24 mmol/L (23-31)
[2020-05-30 21:13] LABS: Alkaline Phosphatase 51 U/L (40-110)
[2020-05-30 21:14] LABS: Calc. Creatinine Clearance 0 mL/min (70-130)
--- NOTE | 2020-05-30 21:14 | RAD ---
SINGLE VIEW OF THE CHEST: Comparison: 05-01-2020 History: Shortness of breath. Cancer patient. FINDINGS: Single view of the chest shows a normal sized cardiomediastinal silhouette. Patient is status post st ernotomy. The patient is status post stent graft repair of the descending aorta. The Mediport is unch anged in position. There is no evidence of consolidation, mass or pleural effusion. Surgical clips ar e seen in the right axilla. IMPRESSION: No evidence of acute cardiopulmonary disease. POS: EAA
[2020-05-30 21:15] LABS: BUN (Urea Nitrogen) 27 mg/dL (9.8-20.1)
[2020-05-30] MEDS ORDERED: Dexamethasone 10 MG/ML VIAL ONE (21:15)
[2020-05-30] MEDS ORDERED: Furosemide 100 MG/10 ML VIAL ONE (21:15)
[2020-05-30 21:16] LABS: ALT (SGPT) 9 U/L (8-55); AST (SGOT) 19 U/L (5-34)
--- NOTE | 2020-05-30 22:03 | CT ---
CTA Angio Chest W WO Con 05/30/2020 9:35 PM Indication: History of cancer, shortness of breath and tachypnea Technique: Multiple CTA images were obtained of the thorax with IV contrast. 3-D rendering: MIP maryanne nstructed images were created and reviewed. Comparison: CTA of the chest dated May 09, 2018 and a CTA aortic dissection protocol dated Octob er 2019 Findings: Pulmonary arteries: No central or segmental pulmonary embolus is evident. Heart and Aorta: There is stable aneurysmal dilatation of the distal aortic arch and proximal descen ding thoracic aorta measuring 5.1 cm. The long segment aneurysmal dilatation of the descending thoracic aorta with associated endograft stent appears largely stable. The aneurysmal dilatation of t he suprarenal abdominal aorta is stable measuring up to 4.8 cm. The upper abdominal aorta at the level renal arteries measures 3 cm which is stable. There is stable postsurgical change of a prior CA BG. There is a left chest wall port in place. Mediastinum:Normal appearing. No enlarged lymph nodes. Lungs:There is severe emphysema. There are scattered reticular nodular opacities seen throughout both lungs suspicious for changes of a bronchiolitis. Pleural space: Clear. Upper Abdomen: The gallbladder is surgically absent. There is a mild amount of retained stool. Visua lized adrenal glands appear within normal limits. Osseous Structures: There is thoracolumbar scoliosis. No acute fracture is evident. Soft tissues:No abnormality. Other findings:None. Impression: 1. No central or segmental pulmonary embolus. 2. Stable aneurysmal dilatation of the distal aortic arch and proximal descending thoracic aorta. Sta ble aneurysmal dilatation of the descending thoracic aorta with associated endograft stent. Stable aneurysmal dilatation of the upper abdominal aorta. 3. Reticulonodular opacities seen peripherally throughout both lungs suspicious for respiratory bronc hiolitis. Recommend correlation with the clinical exam. Follow-up CT evaluation in 6-8 weeks to document resolution is recommended.
[2020-05-30] MEDS ORDERED: cefTRIAXone\\ROCEPHIN 1 GM VIAL ONE (22:44)
[2020-05-30] MEDS ORDERED: Azithromycin 500 MG VIAL ONE (23:00)
[2020-05-30 23:23] LABS: SARS-CoV-2 NAA Rapid Test Not Detected (NotDetected)
[2020-05-31 00:44] VITALS: BMI 32.8
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
[2020-05-31] MEDS ORDERED: Acetaminophen 325 MG TAB PO PRN (10:49)
[2020-05-31] MEDS ORDERED: Acetaminophen 650 MG Suppository PR PRN (10:49)
[2020-05-31] MEDS ORDERED: Guaifenesin DM 100-10/5 ML UDCUP PO PRN (10:49)
[2020-05-31] MEDS ORDERED: HYDROcodone/Acetaminophen 10/325 mg Tablet PO PRN (11:33)
[2020-05-31] MEDS: methylPREDNISolone Sod Succ 40 MG VIAL IVP SCH ×2 (12:17→18:22)
[2020-05-31] MEDS: HYDROcodone/Acetaminophen 10/325 mg Tablet PO PRN ×2 (12:23→18:22)
--- NOTE | 2020-05-31 12:29 | CON ---
DATE OF CONSULTATION: HISTORY OF PRESENT ILLNESS: Rere Matias is a 65-year-old female, who is well known to us with multiple medical problems, predominantly end-stage COPD from long-standing tobacco abuse. She has had chest pain and cough. No fever. No chills. Sputum is thick. Lower extremity swelling was there. She was wheezing. She took several different medications including a course of antibiotics and steroids from my office, not long ago. She is normally admitted. Most days she can barely walk even 50 feet without getting markedly short of breath. PAST MEDICAL HISTORY: 1. COPD. 2. CHF. 3. Breast cancer. 4. Colon cancer. 5. Major anxiety. 6. Ovarian cancer. PAST SURGICAL HISTORY: 1. Hysterectomy. 2. Aortic surgery repair in [place] in 2016. 3. Cholecystectomy. 4. Cardiac stents. MEDICATIONS: Home medicine includes: 1. Losartan 100. 2. Catapres 0.2. 3. Advair. 4. Prednisone. 5. Incruse. 6. Phenergan. 7. Metoprolol 12.5. 8. Synthroid 25. 9. Nebulizer. ALLERGIES: MULTIPLE MEDICATIONS INCLUDE DEMEROL, NARCOTICS. REVIEW OF SYSTEMS: Negative. PHYSICAL EXAMINATION: GENERAL: She is awake, alert, and responsive, in mild distress. VITAL SIGNS: O2 saturation presently is 96% on 2 L, respiratory rate 22, pulse 80, temperature 98, blood pressure 170/87. CHEST: Diffuse wheezing. CARDIAC: Normal S1 and S2. No gallops. ABDOMEN: No masses. LABORATORY DATA: White count 6000, Hemoglobin and hematocrit 8 and 23, platelet count is low at 91,000. Creatinine is 1.4, BUN is 27, mild azotemia. X-ray was negative. Chaudhry test negative. Chest x-ray showed no acute infiltrates. ASSESSMENT: 1. Respiratory failure on a combination of chronic obstructive pulmonary disease exacerbation and bronchitis. 2. Diastolic dysfunction. 3. History of ovarian and breast cancer. 4. Hypertension. PLAN: I agree with present treatment. Cardiology is being consulted. Dulera, steroids, neb treatments, p.o. antibiotics tomorrow. TIME SPENT: 70 minutes, 50% in direct patient care. Job ID: [id number]
[2020-05-31] MEDS ORDERED: Albuterol 200 PUFF (6.7GM INHALER) INH SCH (14:00)
[2020-05-31] MEDS: Furosemide 20 MG/2 ML VIAL SLOW IVP SCH (14:46)
--- NOTE | 2020-05-31 15:43 | CON ---
DATE OF CONSULTATION: REASON FOR CONSULTATION: Ovarian cancer. HISTORY OF PRESENT ILLNESS: Ms. Matias is a 65-year-old female with a history of COPD and metastatic serous carcinoma of the ovary. She is currently on oral Cytoxan and Avastin. She has been struggling with hypertension since starting Avastin and was to have an echocardiogram today to evaluate her heart. She has also been struggling with lower extremity edema and increased abdominal girth. She presented to the emergency room for progressive shortness of breath. CT scan showed respiratory bronchiolitis. There was no pulmonary emboli. She did have a known thoracic aortic aneurysm, which was stable. She had been admitted and started on steroids, diuretic, and empiric antibiotics. PAST MEDICAL HISTORY: 1. Metastatic serous carcinoma of ovary. 2. History of stage I invasive ductal carcinoma of the breast. 3. COPD. 4. History of thoracic aneurysm. 5. Hypertension. 6. Anxiety. PAST SURGICAL HISTORY: 1. Tubal ligation. 2. Cholecystectomy. 3. Cardiac ablation. 4. Aneurysm clipping. 5. Lumpectomy. ALLERGIES: TO DEMEROL, MORPHINE, AND STADOL. HOME MEDICATIONS: 1. Advair. 2. Clonidine. 3. Cozaar. 4. DuoNeb. 5. Ellipta. 6. Levothyroxine. 7. Metoprolol. 8. Phenergan. 9. Prednisone. 10. ProAir. FAMILY HISTORY: Breast cancer in her family. SOCIAL HISTORY: , 2 children. Former smoker. No alcohol or illicit drug use. REVIEW OF SYSTEMS: Positive for shortness of breath, weakness, and swelling. Otherwise, negative. PHYSICAL EXAMINATION: VITAL SIGNS: Temperature is 98.2, pulse is 74, respiratory rate 20, blood pressure is 171/76, and she is 96% on 3 L. GENERAL: This is a well-developed, well-nourished female, in no acute distress. HEENT: Normocephalic and atraumatic. Pupils equal and reactive to light. NECK: Supple. CV: Regular rate and rhythm. LUNGS: She has expiratory wheezes. ABDOMEN: Soft. Bowel sounds are positive. EXTREMITIES: She has 1+ bilateral lower extremity edema. NEUROLOGIC: Nonfocal. SKIN: No rash. PERTINENT LABORATORY DATA AND X-RAYS: WBCs are 6.7, hemoglobin 10.1, hematocrit 29.2, platelet count is 91,000, 76% neutrophils, and 14% lymphocytes. Sodium 144, potassium 4.3, chloride 109, CO2 is 24, BUN is 27, creatinine 1.4, lactic acid 1, calcium 7.7, bilirubin 0.3, AST is 19, ALT is 9, and alkaline phosphatase is 51. Serum total protein is 4.5, albumin 2.8, and globulin 1.7. BNP is 945.3. COVID PCR and influenza negative. Radiology per HPI. ASSESSMENT: 1. Ovarian cancer. 2. Hypertension. 3. Congestive heart failure. 4. Chronic obstructive pulmonary disease exacerbation. DISCUSSION: The patient has been started on antibiotics and steroids. There is an echo that has been ordered. She has been on Avastin and has been struggling with hypertension. This can cause cardiac issues, for which she has been followed by her turner off. She does want to continue with oral Cytoxan and spoke with Dr. Redman. She can continue while in the hospital. We will check a CA-125. She will follow up with us in the clinic. Thank you for the consult. Job ID: [id number]
[2020-05-31] MEDS: Nicotine 14 MG PATCH TD SCH (15:50)
[2020-05-31] MEDS: Mometasone 200 MCG/Formoterol 5 MCG 120 PUFF INHALER INH SCH (19:26)
--- NOTE | 2020-05-31 19:44 | CON ---
DATE OF CONSULTATION: HISTORY OF PRESENT ILLNESS: The patient is an unfortunate 65-year-old woman with long history of aortic aneurysmal disease and COPD, who presents with increasing dyspnea and lower extremity swelling. The patient has previously undergone aortic aneurysm repair with an ascending repair in 2010 and a descending repair in 2012. The patient also has a history of severe COPD. The patient is being treated for ovarian carcinoma. She has had difficulty controlling her hypertension. The patient presents with increasing dyspnea and lower extremity swelling. The patient denies having any chest discomfort. PAST MEDICAL HISTORY: 1. Aortic aneurysm. 2. History of an ASD closure. 3. Fibromyalgia. 4. Severe COPD. 5. GE reflux. 6. Hypothyroidism. 7. Breast carcinoma. 8. Ovarian carcinoma. 9. Bladder carcinoma. 10. Celiac disease. 11. Diverticulosis. PAST SURGICAL HISTORY: 1. She has also had thoracic aortic aneurysm. 2. Descending aortic aneurysm. 3. Cholecystectomy. 4. Tubal ligation. 5. Lumpectomy. SOCIAL HISTORY: Former smoker. FAMILY HISTORY: Positive family history of heart disease. ALLERGIES: DEMEROL, CODEINE, MEPERIDINE, AND STADOL. MEDICATIONS: 1. Lipitor 10 at bedtime. 2. Cytoxan 50 daily. 3. Losartan 100 daily. 4. Clonidine 0.2 b.i.d. 5. Metoprolol 12.5 daily. 6. Synthroid 25 mcg daily. PHYSICAL EXAMINATION: GENERAL: Ill-appearing woman, who is in mild distress. VITAL SIGNS: Blood pressure 171/76. NECK: Showed no jugular venous distention. LUNGS: Have diffuse wheezes with rhonchi in both lung vera. HEART: Regular rate and rhythm. Normal S1 and S2 with no murmurs. ABDOMEN: Nondistended. EXTREMITIES: Showed mild bilateral edema. VASCULAR: Radial pulses 2+. LABORATORY DATA: Sodium 144, potassium 4.3, chloride 109, bicarbonate 24, BUN 27, and creatinine is 1.4. White blood cell count 6.7, hemoglobin 10.1, hematocrit 29.2, and platelets are 91. EKG normal sinus rhythm, otherwise unremarkable EKG. IMPRESSION AND PLAN: 1. Chronic obstructive pulmonary disease exacerbation. 2. Congestive heart failure, diastolic. 3. History of an aortic aneurysm repair of the thoracic and descending aorta. 4. Hypertension. 5. Ovarian carcinoma. 6. Bladder carcinoma. This patient presents with Chronic obstructive pulmonary disease exacerbation and congestive heart failure. She has had markedly [id number] hypertension. She was intolerant to hydralazine. The patient does have significant COPD, so we will consider discontinuing her Toprol. We would check the patient's echocardiogram to re-evaluate her left ventricular function. The patient is being diuresed with IV Lasix. We would switch her to Cardizem. We would discontinue her Toprol. We will follow this patient with you through her hospitalization. Job ID: [id number] MTDD
[2020-05-31] MEDS: Promethazine 25 MG TAB PO SCH (20:29)
[2020-05-31] MEDS: guaiFENesin ER 600 MG TAB PO SCH (20:29)
[2020-05-31] MEDS: Atorvastatin Calcium 10 MG TAB PO SCH (20:29)
[2020-05-31] MEDS: cloNIDine 0.2 MG TAB PO SCH (20:29)
[2020-05-31] MEDS: Famotidine 20 MG TAB PO SCH (20:29)
[2020-05-31] MEDS ORDERED: cefTRIAXone\\ROCEPHIN 1 GM in Sodium Chloride 0.9% 100 ML IVPB SCH (21:00)
[2020-05-31] MEDS ORDERED: [UNRECOGNIZED DRUG - OTHER] INH SCH (21:00)
[2020-05-31] MEDS ORDERED: DISK W DE INH SCH (21:00)
[2020-05-31] MEDS ORDERED: FLUTICASONE INH SCH (21:00)
[2020-05-31] MEDS ORDERED: SALMETEROL INH SCH (21:00)
[2020-05-31] MEDS ORDERED: Azithromycin 500 MG in Sodium Chloride 0.9% 250 ML 250 ML IVPB SCH (22:00)
[2020-05-31] MEDS ORDERED: traZODone HCl 50 MG TAB PO SCH (22:00)
[2020-06-01] MEDS: methylPREDNISolone Sod Succ 40 MG VIAL IVP SCH ×2 (00:09→05:31)
[2020-06-01] MEDS: HYDROcodone/Acetaminophen 10/325 mg Tablet PO PRN ×3 (00:12→16:10)
[2020-06-01] MEDS: Furosemide 20 MG/2 ML VIAL SLOW IVP SCH (05:31)
[2020-06-01 05:53] LABS: #Basophils 0.1 thou/uL (0.0-0.2); #Lymphocytes 0.2 thou/uL (1.20-3.40); #Monocytes 0.1 thou/uL (0.11-0.59); #Neutrophils 5.6 thou/uL (1.40-6.50); %Basophils 1.4 % (0.0-1.0); %Eosinophils 0.1 % (0.0-10.0); %Lymphocytes 3.9 % (21.0-51.0); %Monocytes 1.9 % (0.0-10.0); %Neutrophils 92.6 % (42.0-75.0); Hemoglobin 9.1 g/dL (12.0-16.0); Mean Corpuscular HGB CONC 34.3 g/dL (32.0-36.0); Mean Corpuscular Hemoglobin 35.5 pg (27.0-31.0); Mean Platelet Volume 9.5 fL (7.4-10.4); Platelet Count 99 thou/uL (130-400); RBC Distribution Width 13.1 % (11.5-14.5); Red Blood Cell (RBC) Count 2.56 mill/uL (4.20-5.40); White Blood Cell (WBC) Count 6.1 thou/uL (4.8-10.8)
[2020-06-01 06:08] LABS: Anion Gap 14 mmol/L (10-20); BUN (Urea Nitrogen) 41 mg/dL (9.8-20.1); Calc. Creatinine Clearance 52 mL/min (70-130); Calcium 7.1 mg/dL (7.8-10.44); Carbon Dioxide 25 mmol/L (23-31); Chloride 104 mmol/L (98-107); Glucose 164 mg/dL (80-115); Potassium 4.3 mmol/L (3.5-5.1); Sodium 139 mmol/L (136-145)
--- NOTE | 2020-06-01 07:31 | PDOC.HOSPP ---
- Subjective Encounter Date: 06/01/20 Encounter Time: 10:00 Subjective: Patient with some improvement in her wheezing and shortness of breath. Still having intermittent lower extremity edema especially when she stands up or sits up. Not urinating much. - Objective Vital Signs & Weight: Vital Signs (12 hours) Temp Pulse Resp BP BP Pulse Ox 05/31/20 23:30 78 16 98 05/31/20 23:17 98.0 F 76 16 161/76 H 98 05/31/20 19:47 99.2 F 79 16 149/68 H 94 L Weight Weight 216 lb 0.848 oz Result Diagrams: 06/01/20 05:35 06/01/20 05:35 Hospitalist ROS - Review of Systems Constitutional: denies: fever, chills Respiratory: reports: cough, shortness of breath, SOB with excertion Cardiovascular: reports: edema. denies: chest pain, palpitations Gastrointestinal: denies: nausea, vomiting, abdominal pain - Medication Medications: Active Medications Generic Name Dose Route Start Last Admin Trade Name Freq PRN Reason Stop Dose Admin Hydrocodone Bitart/Acetaminophen 1 tab 05/31/20 11:33 06/01/20 00:12 Hydrocodone/Acetaminophen 10/325 Mg Tablet PO 1 tab Q4H PRN Administration Mild-Moderate Pain (1-5) Albuterol/Ipratropium 3 ml 05/31/20 13:00 05/31/20 23:30 Ipratropium/Albuterol Sulfate 3 Ml Neb NEB 3 ml [id number] MEKHI Administration Atorvastatin Calcium 10 mg 05/31/20 21:00 05/31/20 20:29 Atorvastatin Calcium 10 Mg Tab PO 10 mg HS MEKHI Administration Clonidine 0.2 mg 05/31/20 21:00 05/31/20 20:29 Clonidine 0.2 Mg Tab PO 0.2 mg BID MEKHI Administration Famotidine 20 mg 05/31/20 21:00 05/31/20 20:29 Famotidine 20 Mg Tab PO 20 mg BID MEKHI Administration Furosemide 20 mg 05/31/20 14:00 06/01/20 05:31 Furosemide 20 Mg/2 Ml Vial SLOW IVP 20 mg 0600,1400 MEKHI Administration Guaifenesin 1,200 mg 05/31/20 21:00 05/31/20 20:29 Guaifenesin Er 600 Mg Tab PO 1,200 mg Q12HR MEKHI Administration Ceftriaxone Sodium 1 gm/ 100 mls @ 200 mls/hr 05/31/20 21:00 05/31/20 22:30 Sodium Chloride IVPB 100 mls Q24HR MEKHI Administration Azithromycin 500 mg/ Sodium 250 mls @ 250 mls/hr 05/31/20 22:00 05/31/20 21:22 Chloride IVPB 250 mls Q24HR MEKHI Administration Methylprednisolone Sodium Succinate 40 mg 05/31/20 12:00 06/01/20 05:31 Methylprednisolone Sod Succ 40 Mg Vial IVP 40 mg Q6HR MEKHI Administration Mometasone Furoate/Formoterol Fumar 2 puff 05/31/20 18:30 05/31/20 19:26 Mometasone 200 Mcg/Formoterol 5 Mcg 120 Puff Inhaler INH 2 puff BID-RT MEKHI Administration Nicotine 14 mg 05/31/20 16:00 05/31/20 15:50 Nicotine 14 Mg Patch TD 14 mg Q24HR MEKHI Administration Promethazine HCl 25 mg 05/31/20 21:00 05/31/20 20:29 Promethazine 25 Mg Tab PO 25 mg HS MEKHI Administration Sodium Chloride 10 ml 05/31/20 21:00 05/31/20 21:22 Flush - Normal Saline 10 Ml Syringe IVF 10 ml Q12HR MEKHI Administration Hospitalist Exam Vitals: Vital Signs (12 hours) Temp Pulse Resp BP BP Pulse Ox 05/31/20 23:30 78 16 98 05/31/20 23:17 98.0 F 76 16 161/76 H 98 05/31/20 19:47 99.2 F 79 16 149/68 H 94 L Weight Weight 216 lb 0.848 oz General Appearance: NAD, awake alert ENT: moist mucosa Heart: RRR, no murmur, no gallops, no rubs Respiratory: no rales, no ronchi, no tachypnea, wheezes (Diffuse, moderate, decent air movement throughout) Gastrointestinal: soft, non-tender, non-distended, normal bowel sounds Extremities - other findings: Trace edema to bilateral ankles Musculoskeletal: normal tone, normal strength, no muscle wasting Psychiatric: normal affect, normal behavior, A&O x 3 Hosp A/P - Plan Acute exacerbation of COPD We will continue nebulizers, steroids, antibiotics, switching to oral medications per Dr. Arianna Keller following Acute respiratory failure with hypoxia Patient with history of 2 L nasal cannula use but now with increased oxygen requirement. We will continue nasal cannula oxygen and wean as tolerated Community-acquired pneumonia We will continue Rocephin and azithromycin No evidence of sepsis at this point Acute exacerbation of diastolic congestive heart failure Patient with elevated brain natriuretic peptide before. Echocardiogram and from 1 year ago had a normal ejection fraction. We will obtain a new echocardiogram. Dr. Barahona following -Creainine bumped with attempted diuresis so will stop Lasix Acute on chronic renal failure stage II We will monitor closely -Bumped some with attempted diuresis -Holding Losartan Ovarian cancer Oncology following Hypertension Holding Losartan, Dr. Barahona adjusting medications for improved control Hyperlipidemia We will resume home medications DVT prophylaxis: Lovenox subcu GI prophylaxis: Pepcid twice a day
[2020-06-01] MEDS: Mometasone 200 MCG/Formoterol 5 MCG 120 PUFF INHALER INH SCH ×2 (07:55→20:08)
[2020-06-01] MEDS ORDERED: Non-Formulary Item 1 EACH (Umeclidinium Bromide [Incruse Ellipta] 62.5 MCG Blst.W.Dev) IH SCH (09:00)
[2020-06-01] MEDS: Levothyroxine Sodium 25 MCG TAB PO SCH (09:24)
[2020-06-01] MEDS: Losartan 25 MG TAB PO SCH (09:24)
[2020-06-01] MEDS: Famotidine 20 MG TAB PO SCH ×2 (09:24→20:21)
[2020-06-01] MEDS: cloNIDine 0.2 MG TAB PO SCH (09:24)
[2020-06-01] MEDS: Enoxaparin Sodium 40 MG/0.4 ML SYRINGE SC SCH (09:24)
[2020-06-01] MEDS: guaiFENesin ER 600 MG TAB PO SCH ×2 (09:24→20:21)
[2020-06-01] MEDS: CYCLOPHOSPHAMIDE PO SCH (09:25)
--- NOTE | 2020-06-01 10:00 | PRG ---
DATE OF SERVICE: OBJECTIVE: VITAL SIGNS: Temperature 98, pulse , respirations 20, sats are 98% on 3 L, blood pressure 150/69. CHEST: No wheezing, no crackles. CARDIAC: Normal S1, S2. No gallops. ABDOMEN: No masses. LABORATORY DATA: X-ray was normal. BNP was elevated. White count normal. Creatinine 1.68, BUN 41. ASSESSMENT: 1. Chronic obstructive pulmonary disease. 2. Respiratory failure. 3. Ovarian cancer. 4. Bronchitis. 5. Diastolic dysfunction. PLAN: Switch her to oral medication. PT, supportive care. We will follow. Job ID: [id number]
[2020-06-01] MEDS: Fluticasone Propionate Nasal Spray 16 gm Bottle NASAL SCH (10:28)
--- NOTE | 2020-06-01 14:26 | PDOC.CPN ---
- Subjective Date: 06/01/20 Time: 14:20 Interval history: Patient sitting up in bed, she states that she is still not feeling much better than when she was admitted. She states her shortness of breath is getting better and her edema is resolved as long as she keeps her legs elevated. She denies any chest pain today. She states she still has a cough and feels congested in her lungs. - Review of Systems General: denies: fever/chills, weight/appetite/sleep changes, night sweats, fatigue Respiratory: reports: cough, congestion Cardiovascular: reports: edema. denies: chest pain, palpitation, paroxysmal n octurnal dyspnea, orthopnea Gastrointestinal: denies: nausea, vomiting, diarrhea, constipation, abd pain, GI bleeding Musculoskeletal: denies: pain, tenderness, stiffness, swelling, arthritis/arthralgias Neurological: denies: numbness, syncope, seizure, weakness - Objective Allergies/Adverse Reactions: Allergies Allergy/AdvReac Type Severity Reaction Status Date / Time butorphanol tartrate Allergy Severe Anaphylaxis Verified 06/27/19 21:03 [From Stadol] meperidine HCl [From Demerol] Allergy Severe Anaphylaxis Verified 06/27/19 21:03 codeine Allergy Verified 06/27/19 21:03 ondansetron Allergy hypertensio Verified 06/27/19 21:03 [From Zofran (as n hydrochloride)] hydromorphone [From Dilaudid] AdvReac Severe vomiting Verified 06/27/19 21:03 morphine AdvReac Severe vomiting Verified 06/27/19 21:03 IV NARCOTICS Allergy Severe VERY Uncoded 06/27/19 21:03 SENSITIVE, NAUSEA/VOMITING, SUPRESSED BREATHING No Pain Injections Allergy Uncoded 06/27/19 21:03 Visit Medications: Current Medications Acetaminophen (Acetaminophen 325 Mg Tab) 650 mg PO Q4H PRN PRN Reason: Headache/Fever/Mild Pain (1-3) Acetaminophen (Acetaminophen 650 Mg Suppository) 650 mg ME Q4H PRN PRN Reason: Headache/Fever/Mild Pain (1-3) Hydrocodone Bitart/Acetaminophen (Hydrocodone/Acetaminophen 10/325 Mg Tablet) 1 tab PO Q4H PRN PRN Reason: Mild-Moderate Pain (1-5) Last Admin: 06/01/20 10:21 Dose: 1 tab Documented by: Hydrocodone Bitart/Acetaminophen (Hydrocodone/Acetaminophen 10/325 Mg Tablet) 2 tab PO Q4H PRN PRN Reason: Severe Pain (7-10) Albuterol Sulfate (Albuterol 200 Puff (6.7gm Inhaler)) 0 puff INH ASDIR MEKHI Albuterol/Ipratropium (Ipratropium/Albuterol Sulfate 3 Ml Neb) 3 ml NEB [id number] PRN PRN Reason: SOB &/or Wheezing Albuterol/Ipratropium (Ipratropium/Albuterol Sulfate 3 Ml Neb) 3 ml NEB [id number] [facility] Last Admin: 06/01/20 14:15 Dose: 3 ml Documented by: Atorvastatin Calcium (Atorvastatin Calcium 10 Mg Tab) 10 mg PO HS [facility] Last Admin: 05/31/20 20:29 Dose: 10 mg Documented by: Clonidine (Clonidine 0.2 Mg Tab) 0.2 mg PO BID [facility] Last Admin: 06/01/20 09:24 Dose: 0.2 mg Documented by: Enoxaparin Sodium (Enoxaparin Sodium 40 Mg/0.4 Ml Syringe) 40 mg SC 0900 [facility] Last Admin: 06/01/20 09:24 Dose: 40 mg Documented by: Famotidine (Famotidine 20 Mg Tab) 20 mg PO BID [facility] Last Admin: 06/01/20 09:24 Dose: 20 mg Documented by: Fluticasone Propionate (Fluticasone Propionate Nasal [place] 16 Gm Bottle) 1 gm NASAL DAILY [facility] Last Admin: 06/01/20 10:28 Dose: 2 sprays Documented by: Guaifenesin (Guaifenesin Er 600 Mg Tab) 1,200 mg PO Q12HR [facility] Last Admin: 06/01/20 09:24 Dose: 1,200 mg Documented by: Guaifenesin/Dextromethorphan (Guaifenesin Dm 100-10/5 Ml Udcup) 15 ml PO Q4H PRN PRN Reason: Cough Levofloxacin (Levofloxacin 500 Mg Tab) 500 mg PO 0600 [facility] Stop: 06/09/20 06:01 Levothyroxine Sodium (Levothyroxine Sodium 25 Mcg Tab) 25 mcg PO DAILY [facility] Last Admin: 06/01/20 09:24 Dose: 25 mcg Documented by: Losartan Potassium (Losartan 25 Mg Tab) 100 mg PO DAILY [facility] Last Admin: 06/01/20 09:24 Dose: 100 mg Documented by: Mometasone Furoate/Formoterol Fumar (Mometasone 200 Mcg/Formoterol 5 Mcg 120 Puff Inhaler) 2 puff INH BID-RT [facility] Last Admin: 06/01/20 07:55 Dose: 2 puff Documented by: Nicotine (Nicotine 14 Mg Patch) 14 mg TD Q24HR [facility] Last Admin: 05/31/20 15:50 Dose: 14 mg Documented by: Cytoxan [ Cyclophosphamide] 50 Mg Caps 0 each PO DAILY [facility] Last Admin: 06/01/20 09:25 Dose: 1 each Documented by: Prednisone (Prednisone 20 Mg Tab) 20 mg PO BID [facility] Promethazine HCl (Promethazine 25 Mg Tab) 25 mg PO HS [facility] Last Admin: 05/31/20 20:29 Dose: 25 mg Documented by: Senna/Docusate Sodium (Senokot S 8.6-50 Mg Tab) 2 tab PO BID PRN PRN Reason: Constipation Sodium Chloride (Flush - Normal Saline 10 Ml Syringe) 10 ml IVF Q12HR [facility] Last Admin: 06/01/20 09:27 Dose: 10 ml Documented by: Sodium Chloride (Flush - Normal Saline 10 Ml Syringe) 10 ml IVF PRN PRN PRN Reason: Saline Flush Vital Signs & Weight: Vital Signs Temp Pulse Resp BP Pulse Ox 06/01/20 08:00 98.0 F 84 20 152/69 H 96 Weight 216 lb 0.848 oz - Physical Exam General: alert & oriented x3, appears well, no apparent distress Cardiac: no murmur, regular rate, regular rhythm, S1/S2 Lungs: oxygen, other (diffuse wheezes auscultated throughout bilateral lung bases) Neuro: grossly intact, motor function intact Abdomen: active bowel sounds, soft, non-tender Extremities: no cyanosis, no clubbing, no edema, 2+ Posterior Tibial, 2+ Dorsalis Pedus, other: (no edema present to BLE during exam) Skin: clear Musculoskeletal: normal range of motion, no pain, no fluid collection - Labs Result Diagrams: 06/01/20 05:35 06/01/20 05:35 Troponin/CKMB Troponin I 0.017 ng/mL (< 0.028) 05/30/20 20:01 - EKG Interpretation EKG Method: 12 Lead EKG: sinus rhythm (EKG on 05/28/20 showed NSR) - Assessment/Plan Assessment/Plan: 1. COPD exacerbation 2. Community-acquired pneumonia: treated by primary care services, she is receiving antibiotics. She has diffuse wheezes throughout her bilateral lungs, she remains on oxygen via nasal cannula 3. Congestive heart failure-diastolic: her echocardiogram today revealed an ejection fractions of 60-65%, trace mitral and tricuspid regurgitation, and mild aortic valve regurgitation 4. hypertension: her BP has been more controlled throughout the last 24 hours, Ms. Matias states that she had just taken her chemo medication and this is what she believes is causing her to have elevated blood pressure. Her Losartan is on hold right now due to MEAGHAN. Continue Clonidine 0.2 mg PO BID. She has been intolerant of Hydralazine in the past. Beta oli on hold due to severe COPD. 5. History of abdominal aortic aneurysm repair 6. Ovarian cancer Pt. seen and eval. by me. The BP is better today without taking the chemo. I will try a clonidine patch and po nitrates for the BP control. Chest diffuse rales/wheezing. RRR. gjm
[2020-06-01] MEDS: Nicotine 14 MG PATCH TD SCH (16:05)
[2020-06-01] MEDS: predniSONE 20 MG TAB PO SCH (20:19)
[2020-06-01] MEDS: Promethazine 25 MG TAB PO SCH (20:20)
[2020-06-01] MEDS: Atorvastatin Calcium 10 MG TAB PO SCH (20:21)
[2020-06-01] MEDS ORDERED: traZODone HCl 50 MG TAB PO PRN (21:12)
[2020-06-02 04:12] LABS: #Lymphocytes 0.2 thou/uL (1.20-3.40); #Monocytes 0.2 thou/uL (0.11-0.59); #Neutrophils 7.5 thou/uL (1.40-6.50); %Basophils 0.1 % (0.0-1.0); %Eosinophils 0.1 % (0.0-10.0); %Lymphocytes 2.8 % (21.0-51.0); %Monocytes 2.6 % (0.0-10.0); %Neutrophils 94.4 % (42.0-75.0); Hemoglobin 8.8 g/dL (12.0-16.0); Mean Corpuscular HGB CONC 34.7 g/dL (32.0-36.0); Mean Corpuscular Hemoglobin 36.1 pg (27.0-31.0); Mean Platelet Volume 9.5 fL (7.4-10.4); Platelet Count 98 thou/uL (130-400); Red Blood Cell (RBC) Count 2.43 mill/uL (4.20-5.40); White Blood Cell (WBC) Count 7.9 thou/uL (4.8-10.8)
[2020-06-02 04:33] LABS: Anion Gap 10 mmol/L (10-20); BUN (Urea Nitrogen) 44 mg/dL (9.8-20.1); Calc. Creatinine Clearance 65 mL/min (70-130); Calcium 7.3 mg/dL (7.8-10.44); Carbon Dioxide 29 mmol/L (23-31); Chloride 106 mmol/L (98-107); Glucose 143 mg/dL (80-115); Potassium 4.3 mmol/L (3.5-5.1); Sodium 141 mmol/L (136-145)
--- NOTE | 2020-06-02 07:27 | PDOC.HOSPP ---
- Subjective Encounter Date: 06/02/20 Encounter Time: 12:30 Subjective: Patient feeling very short of breath and with chest tightness this morning. She did report some chest pain at 1 point that was mostly pressure in nature. EKG was done that was negative for ischemic changes. Patient did refuse her nebulizing treatments overnight, took some this morning and felt a little better. Patient is very anxious and is certain that this is fluid gathering around her heart. She does report she has felt very thirsty and believes she may be drinking a bit more than she should. She does report some worsening lower extremity edema, though not terrible on my exam. Dr. Kleler has added some alprazolam as needed. - Objective Vital Signs & Weight: Vital Signs (12 hours) Temp Pulse Resp BP Pulse Ox 06/01/20 20:08 96 06/01/20 20:05 98 06/01/20 20:00 97.7 F 71 16 155/72 H 96 Weight Weight 216 lb 0.848 oz Result Diagrams: 06/02/20 03:30 06/02/20 03:30 Hospitalist ROS - Review of Systems Constitutional: denies: fever, chills Respiratory: reports: cough, shortness of breath, wheezing Cardiovascular: reports: edema. denies: palpitations, paroxysmal noc. dyspnea Gastrointestinal: denies: nausea, vomiting, abdominal pain - Medication Medications: Active Medications Generic Name Dose Route Start Last Admin Trade Name Freq PRN Reason Stop Dose Admin Hydrocodone Bitart/Acetaminophen 1 tab 05/31/20 11:33 06/01/20 16:10 Hydrocodone/Acetaminophen 10/325 Mg Tablet PO 1 tab Q4H PRN Administration Mild-Moderate Pain (1-5) Albuterol/Ipratropium 3 ml 05/31/20 13:00 06/02/20 00:02 Ipratropium/Albuterol Sulfate 3 Ml Neb NEB Not Given [id number] MEKHI Atorvastatin Calcium 10 mg 05/31/20 21:00 06/01/20 20:21 Atorvastatin Calcium 10 Mg Tab PO Not Given HS MEKHI Enoxaparin Sodium 40 mg 06/01/20 09:00 06/01/20 09:24 Enoxaparin Sodium 40 Mg/0.4 Ml Syringe SC 40 mg 0900 MEKHI Administration Famotidine 20 mg 05/31/20 21:00 06/01/20 20:21 Famotidine 20 Mg Tab PO Not Given BID MEKHI Fluticasone Propionate 1 gm 06/01/20 09:00 06/01/20 10:28 Fluticasone Propionate Nasal [place] 16 Gm Bottle NASAL 2 sprays DAILY MEKHI Administration Guaifenesin 1,200 mg 05/31/20 21:00 06/01/20 20:21 Guaifenesin Er 600 Mg Tab PO Not Given Q12HR MEKHI Levofloxacin 500 mg 06/02/20 06:00 06/02/20 05:10 Levofloxacin 500 Mg Tab PO 06/09/20 06:01 500 mg 0600 MEKHI Administration Levothyroxine Sodium 25 mcg 06/01/20 09:00 06/01/20 09:24 Levothyroxine Sodium 25 Mcg Tab PO 25 mcg DAILY MEKHI Administration Losartan Potassium 100 mg 06/01/20 09:00 06/01/20 09:24 Losartan 25 Mg Tab PO 100 mg DAILY MEKHI Administration Mometasone Furoate/Formoterol Fumar 2 puff 05/31/20 18:30 06/01/20 20:08 Mometasone 200 Mcg/Formoterol 5 Mcg 120 Puff Inhaler INH Not Given BID-RT MEKHI Nicotine 14 mg 05/31/20 16:00 06/01/20 16:05 Nicotine 14 Mg Patch TD 14 mg Q24HR MEKHI Administration Cytoxan [ 0 each 06/01/20 09:00 06/01/20 09:25 Cyclophosphamide] 50 PO 1 each Mg Caps DAILY MEKHI Administration Prednisone 20 mg 06/01/20 21:00 06/01/20 20:19 Prednisone 20 Mg Tab PO 20 mg BID MEKHI Administration Promethazine HCl 25 mg 05/31/20 21:00 06/01/20 20:20 Promethazine 25 Mg Tab PO 25 mg HS MEKHI Administration Sodium Chloride 10 ml 05/31/20 21:00 06/01/20 20:21 Flush - Normal Saline 10 Ml Syringe IVF Not Given Q12HR [facility] Hospitalist Exam Vitals: Vital Signs (12 hours) Temp Pulse Resp BP Pulse Ox 06/01/20 20:08 96 06/01/20 20:05 98 06/01/20 20:00 97.7 F 71 16 155/72 H 96 Weight Weight 216 lb 0.848 oz General Appearance: awake alert General - other findings: Patient appears anxious but in no respiratory distress ENT: moist mucosa Heart: RRR, no murmur, no gallops, no rubs Respiratory: no rales, no ronchi, no tachypnea, wheezes (Diffuse tightness and wheezing on exam) Gastrointestinal: soft, non-tender, non-distended, normal bowel sounds Extremities - other findings: Trace edema around the ankles and shins, may be a little worse than yesterd Skin: no rashes Psychiatric: normal behavior, A&O x 3. negative: normal affect (Anxiety) Hosp A/P - Plan Acute exacerbation of COPD We will continue nebulizers, steroids, antibiotics, switching to oral medications per Dr. Arianna Keller following Acute respiratory failure with hypoxia Patient with history of 2 L nasal cannula use but now with increased oxygen requirement. On 3L NC. We will continue nasal cannula oxygen and wean as tolerated I believe anxiety is also a large component, alprazolam added Community-acquired pneumonia Antibiotics switced to po Levaquin yesterday. No evidence of sepsis at this point Acute exacerbation of diastolic congestive heart failure Patient with elevated brain natriuretic peptide before. Echocardiogram and from 1 year ago had a normal ejection fraction. We will obtain a new echocardiogram - EF now 60-65%, no other significant a bnormalities Dr. Luu following -We will try a single dose of IV Lasix today and see if it affects her creatinine tomorrow or gets her any better urinary output. Acute on chronic renal failure stage II We will monitor closely -Losartan restarted yesterday. Creatinine markedly improved today. Ovarian cancer Oncology following Hypertension Adjusting medications Very elevated this morning which is making patient more anxious. Suspicious that her anxiety is a large portion of the increase today as it was normal ye sterday. Will adjust medicines as needed. Hyperlipidemia We will resume home medications DVT prophylaxis: Lovenox subcu GI prophylaxis: Pepcid twice a day
[2020-06-02] MEDS: predniSONE 20 MG TAB PO SCH ×2 (08:25→20:04)
[2020-06-02] MEDS: Mometasone 200 MCG/Formoterol 5 MCG 120 PUFF INHALER INH SCH ×2 (08:25→20:22)
[2020-06-02] MEDS: Losartan 25 MG TAB PO SCH (08:25)
[2020-06-02] MEDS: Famotidine 20 MG TAB PO SCH ×2 (08:29→20:10)
[2020-06-02] MEDS: guaiFENesin ER 600 MG TAB PO SCH ×2 (08:29→20:11)
[2020-06-02] MEDS: Enoxaparin Sodium 40 MG/0.4 ML SYRINGE SC SCH (08:30)
[2020-06-02] MEDS: Levothyroxine Sodium 25 MCG TAB PO SCH (08:30)
[2020-06-02] MEDS: Fluticasone Propionate Nasal Spray 16 gm Bottle NASAL SCH (08:33)
[2020-06-02] MEDS: CYCLOPHOSPHAMIDE PO SCH ×2 (08:34→14:43)
[2020-06-02] MEDS ORDERED: cloNIDine 0.2mg/24 Hour PATCH TD SCH (09:00)
--- NOTE | 2020-06-02 09:57 | PRG ---
DATE OF SERVICE: 06/02/2020 SUBJECTIVE: Rere Matias says the steroids are making her shaky and nervous. OBJECTIVE: VITAL SIGNS: Temperature is 98, pulse 80, saturation 98% on 3 L, blood pressure 176/95. CHEST: Diffuse wheezing and rhonchi. CARDIAC: Normal S1. ABDOMEN: No masses. LABORATORY DATA: Unremarkable. Creatinine 1.35, BUN 44. ASSESSMENT: 1. Chronic obstructive pulmonary disease exacerbation. 2. Bronchitis. 3. Major anxiety. 4. Normal ejection fraction, probably diastolic dysfunction. PLAN: I have added low-dose Xanax. We will try a flutter valve to see if it will help her get rid of some of the secretions. We will follow. Job ID: [id number]
[2020-06-02] MEDS: ALPRAZolam 0.25 MG TAB PO PRN (10:34)
[2020-06-02] MEDS: HYDROcodone/Acetaminophen 10/325 mg Tablet PO PRN ×2 (11:46→20:04)
[2020-06-02] MEDS: Nitroglycerin 0.4 MG TAB (25 Tab Bottle) SL PRN (11:56)
--- NOTE | 2020-06-02 13:27 | PDOC.FMACP ---
Advance Care Planning - Problem (1) Palliative care encounter Status: Acute Code(s): Z51.5 - ENCOUNTER FOR PALLIATIVE CARE (2) Acute exacerbation of chronic obstructive pulmonary disease (COPD) Status: Acute Code(s): J44.1 - CHRONIC OBSTRUCTIVE PULMONARY DISEASE W (ACUTE) EXACERBATION (3) Acute kidney injury superimposed on chronic kidney disease Status: Acute Code(s): N17.9 - ACUTE KIDNEY FAILURE, UNSPECIFIED; N18.9 - CHRONIC KIDNEY DISEASE, UNSPECIFIED (4) Ovarian cancer Status: Chronic - Note Participants: patient, palliative care Summary: Palliative care addressed Advanced Care Planning. The diagnosis, prognosis and goals of care were discussed. Appropriate forms and documentation to accomplish the goals of care were discussed. All questions were answered. Completed [facility] [place] [facility] Directives addressed Goal is to follow up with Dr Redman and revisit options for palliation or treatment. Palliative care will sign off as directives addressed and current goals identified. Thank you for this very appropriate consult. Time Spent (mins): 30
[2020-06-02] MEDS ORDERED: Furosemide 40 MG/4 ML VIAL SLOW IVP SCH (13:30)
[2020-06-02] MEDS ORDERED: Polyethylene Glycol 3350 17 GM Packet PO SCH (13:30)
[2020-06-02] MEDS ORDERED: Senokot S 8.6-50 MG TAB PO SCH (13:30)
--- NOTE | 2020-06-02 14:35 | PDOC.CPN ---
- Subjective Date: 06/02/20 Time: 14:23 Interval history: Ms. Matias has several conerns today, she states that she has a lot of edema to her BLE and that she has been experiencing chest pain and pressure and shortness of breath. Her sister is at bedside and states that this is the same type of "chest pain/ pressure " she feels daily when she takes her home chemo medication. An EKG was done and she was also given PRN Nitroglycerin which provided some relief. She believes this is all related to her chemo medications - Review of Systems General: reports: fatigue. denies: fever/chills, weight/appetite/sleep changes, night sweats Respiratory: reports: cough, shortness of breath Cardiovascular: reports: chest pain, edema Gastrointestinal: denies: nausea, vomiting, diarrhea, constipation, abd pain, GI bleeding Musculoskeletal: denies: pain, tenderness, stiffness, swelling, arthritis/arthralgias Neurological: denies: numbness, syncope, seizure, weakness - Objective Allergies/Adverse Reactions: Allergies Allergy/AdvReac Type Severity Reaction Status Date / Time butorphanol tartrate Allergy Severe Anaphylaxis Verified 06/27/19 21:03 [From Stadol] meperidine HCl [From Demerol] Allergy Severe Anaphylaxis Verified 06/27/19 21:03 codeine Allergy Verified 06/27/19 21:03 ondansetron Allergy hypertensio Verified 06/27/19 21:03 [From Zofran (as n hydrochloride)] hydromorphone [From Dilaudid] AdvReac Severe vomiting Verified 06/27/19 21:03 morphine AdvReac Severe vomiting Verified 06/27/19 21:03 IV NARCOTICS Allergy Severe VERY Uncoded 06/27/19 21:03 SENSITIVE, NAUSEA/VOMITING, SUPRESSED BREATHING No Pain Injections Allergy Uncoded 06/27/19 21:03 Visit Medications: Current Medications Acetaminophen (Acetaminophen 325 Mg Tab) 650 mg PO Q4H PRN PRN Reason: Headache/Fever/Mild Pain (1-3) Acetaminophen (Acetaminophen 650 Mg Suppository) 650 mg ID Q4H PRN PRN Reason: Headache/Fever/Mild Pain (1-3) Hydrocodone Bitart/Acetaminophen (Hydrocodone/Acetaminophen 10/325 Mg Tablet) 1 tab PO Q4H PRN PRN Reason: Mild-Moderate Pain (1-5) Last Admin: 06/02/20 11:46 Dose: 1 tab Documented by: Hydrocodone Bitart/Acetaminophen (Hydrocodone/Acetaminophen 10/325 Mg Tablet) 2 tab PO Q4H PRN PRN Reason: Severe Pain (7-10) Albuterol Sulfate (Albuterol 200 Puff (6.7gm Inhaler)) 0 puff INH ASDIR MEKHI Albuterol/Ipratropium (Ipratropium/Albuterol Sulfate 3 Ml Neb) 3 ml NEB [id number] PRN PRN Reason: SOB &/or Wheezing Albuterol/Ipratropium (Ipratropium/Albuterol Sulfate 3 Ml Neb) 3 ml NEB [id number] MEKHI Last Admin: 06/02/20 08:25 Dose: 3 ml Documented by: Alprazolam (Alprazolam 0.25 Mg Tab) 0.25 mg PO TIDPRN PRN PRN Reason: Anxiety Last Admin: 06/02/20 10:34 Dose: 0.25 mg Documented by: Atorvastatin Calcium (Atorvastatin Calcium 10 Mg Tab) 10 mg PO HS [facility] Last Admin: 06/01/20 20:21 Dose: Not Given Documented by: Clonidine (Clonidine 0.2mg/24 Hour Patch) 0.2 mg TD Q7DAYS [facility] Last Admin: 06/02/20 09:25 Dose: 0.2 mg Documented by: Enoxaparin Sodium (Enoxaparin Sodium 40 Mg/0.4 Ml Syringe) 40 mg SC 0900 [facility] Last Admin: 06/02/20 08:30 Dose: Not Given Documented by: Famotidine (Famotidine 20 Mg Tab) 20 mg PO BID [facility] Last Admin: 06/02/20 08:29 Dose: Not Given Documented by: Fluticasone Propionate (Fluticasone Propionate Nasal [place] 16 Gm Bottle) 1 gm NASAL DAILY [facility] Last Admin: 06/02/20 08:33 Dose: 2 sprays Documented by: Furosemide (Furosemide 40 Mg/4 Ml Vial) 40 mg SLOW IVP NOW [facility] Stop: 06/02/20 15:30 Guaifenesin (Guaifenesin Er 600 Mg Tab) 1,200 mg PO Q12HR [facility] Last Admin: 06/02/20 08:29 Dose: 1,200 mg Documented by: Guaifenesin/Dextromethorphan (Guaifenesin Dm 100-10/5 Ml Udcup) 15 ml PO Q4H PRN PRN Reason: Cough Hydralazine HCl (Hydralazine 20 Mg/Ml Vial) 10 mg SLOW IVP Q4H PRN PRN Reason: SBP Greater Than 180 Isosorbide Mononitrate (Isosorbide Mononitrate Er 30 Mg Tab) 30 mg PO DAILY [facility] Last Admin: 06/02/20 08:30 Dose: 30 mg Documented by: Levofloxacin (Levofloxacin 500 Mg Tab) 500 mg PO 0600 [facility] Stop: 06/09/20 06:01 Last Admin: 06/02/20 05:10 Dose: 500 mg Documented by: Levothyroxine Sodium (Levothyroxine Sodium 25 Mcg Tab) 25 mcg PO DAILY [facility] Last Admin: 06/02/20 08:30 Dose: 25 mcg Documented by: Losartan Potassium (Losartan 25 Mg Tab) 100 mg PO DAILY [facility] Last Admin: 06/02/20 08:25 Dose: 100 mg Documented by: Miscellaneous Medication (Biotene Mouth [place] 44.3 Ml) 0 ml MM C1HR-PM SCH Mometasone Furoate/Formoterol Fumar (Mometasone 200 Mcg/Formoterol 5 Mcg 120 Puff Inhaler) 2 puff INH BID-RT [facility] Last Admin: 06/02/20 08:25 Dose: 2 puff Documented by: Nicotine (Nicotine 14 Mg Patch) 14 mg TD Q24HR [facility] Last Admin: 06/01/20 16:05 Dose: 14 mg Documented by: Nitroglycerin (Nitroglycerin 0.4 Mg Tab (25 Tab Bottle)) 0.4 mg SL Q5MIN PRN PRN Reason: Chest Pain Last Admin: 06/02/20 11:56 Dose: 0.4 mg Documented by: Cytoxan [ Cyclophosphamide] 50 Mg Caps 0 each PO DAILY [facility] Last Admin: 06/02/20 08:34 Dose: 1 each Documented by: Polyethylene Glycol (Polyethylene Glycol 3350 17 Gm Packet) 17 gm PO NOW [facility] Stop: 06/02/20 15:30 Prednisone (Prednisone 20 Mg Tab) 20 mg PO BID [facility] Last Admin: 06/02/20 08:25 Dose: 20 mg Documented by: Promethazine HCl (Promethazine 25 Mg Tab) 25 mg PO HS [facility] Last Admin: 06/01/20 20:20 Dose: 25 mg Documented by: Senna/Docusate Sodium (Senokot S 8.6-50 Mg Tab) 2 tab PO BID PRN PRN Reason: Constipation Senna/Docusate Sodium (Senokot S 8.6-50 Mg Tab) 2 tab PO NOW MEKHI Stop: 06/02/20 15:30 Sodium Chloride (Flush - Normal Saline 10 Ml Syringe) 10 ml IVF Q12HR MEKHI Last Admin: 06/02/20 08:38 Dose: 10 ml Documented by: Sodium Chloride (Flush - Normal Saline 10 Ml Syringe) 10 ml IVF PRN PRN PRN Reason: Saline Flush Last Admin: 06/02/20 11:58 Dose: 10 ml Documented by: Trazodone HCl (Trazodone Hcl 50 Mg Tab) 25 mg PO HSPRN PRN PRN Reason: Insomnia Vital Signs & Weight: Vital Signs BP Pulse Ox 06/02/20 09:25 176/95 H 06/02/20 08:40 98 Weight 216 lb 0.848 oz - Physical Exam General: alert & oriented x3, appears well, no apparent distress Neck: no JVD/HJR, no bruit Cardiac: no murmur, regular rate, regular rhythm, S1/S2 Lungs: wheezes (expiratory wheezes throughout bilateral lungs), oxygen Neuro: grossly intact, motor function intact Abdomen: active bowel sounds, soft, non-tender Extremities: no cyanosis, no clubbing, no edema, 2+ Posterior Tibial, 2+ Dorsalis Pedus, other: (very slight non-pitting edema to left ankle, no edema noted to abdomen or bilateral lower legs or feet) Skin: clear Musculoskeletal: no pain, no fluid collection - Labs Result Diagrams: 06/02/20 03:30 06/02/20 03:30 Troponin/CKMB Troponin I 0.018 ng/mL (< 0.028) 06/02/20 12:35 - EKG Interpretation EKG Method: 12 Lead EKG: sinus rhythm (no EKG changes on today's (06/02/20) from admission EKG on 05/30/20. EKG today showed sinus rhythm HR 81, no ST segment changes) - Assessment/Plan Assessment/Plan: 1. COPD exacerbation: patient continues to have shortness of breath and scattered wheezing throughout her bilateral lung vera. 2. Community-acquired pneumonia: treated by primary care services, she is receiving antibiotics. She has diffuse wheezes throughout her bilateral lungs, she remains on oxygen via nasal cannula 3. Congestive heart failure-diastolic: her echocardiogram today revealed an ejection fractions of 60-65%, trace mitral and tricuspid regurgitation, and mild aortic valve regurgitation 4. hypertension: her BP was elevated this morning, she did take her PO chemo mediation yesterday. she was started on a Clonidine patch and Isosorbide Mononitrate daily. Her Losartan was also restarted. 5. History of abdominal aortic aneurysm repair 6. Ovarian cancer 7. Anxiety: the patient is very anxious about her chemo medication and her shortness of breath, she was given some Xanax today, she may need this as a scheduled medication d/t her high anxiety levels. 8. Edema: she has a very slight amount of edema to her left ankle, the patient is concerned and believes that her legs are very edematous compared to normal. She was given a one time dose of Lasix for this. Long discussion with patient and family member about symptoms and how to try and control them. Patient and family seem to think that the root of her symptoms are when she takes her daily PO chemo medication, suggested to speak with Oncologist about different treatment options. Patient also requesting medication for anxiety and sleep medication. She states that she has taken Prozac in the past which has been helpful.
[2020-06-02] MEDS: BIOTENE MOUTH SPRAY 44.3 ML MM SCH ×3 (14:41→20:08)
[2020-06-02] MEDS: Nicotine 14 MG PATCH TD SCH (17:05)
[2020-06-02] MEDS: Atorvastatin Calcium 10 MG TAB PO SCH (20:04)
[2020-06-02] MEDS: Promethazine 25 MG TAB PO SCH (20:04)
--- NOTE | 2020-06-02 21:05 | EKG ---
Test Reason : Blood Pressure : / mmHG Vent. Rate : 081 BPM Atrial Rate : 081 BPM P-R Int : 136 ms QRS Dur : 080 ms QT Int : 380 ms P-R-T Axes : 056 019 044 degrees QTc Int : 441 ms Normal sinus rhythm Normal ECG When compared with ECG of 30-MAY-2020 20:05, (Unconfirmed) Criteria for Anterior infarct are no longer Present Nonspecific T wave abnormality no longer evident in Anterior leads Confirmed by Speedy AL ([id number]) on 06/02/2020 9:05:20 PM Referred By: KANDACE Confirmed By:Speedy AL
[2020-06-03 04:37] LABS: Anion Gap 12 mmol/L (10-20); BUN (Urea Nitrogen) 47 mg/dL (9.8-20.1); Calc. Creatinine Clearance 65 mL/min (70-130); Calcium 7.2 mg/dL (7.8-10.44); Carbon Dioxide 28 mmol/L (23-31); Chloride 105 mmol/L (98-107); Glucose 114 mg/dL (80-115); Potassium 4.4 mmol/L (3.5-5.1); Sodium 141 mmol/L (136-145)
[2020-06-03] MEDS: Levothyroxine Sodium 25 MCG TAB PO SCH (05:30)
[2020-06-03] MEDS: BIOTENE MOUTH SPRAY 44.3 ML MM SCH ×5 (05:31→22:10)
[2020-06-03] MEDS: Mometasone 200 MCG/Formoterol 5 MCG 120 PUFF INHALER INH SCH ×2 (06:45→19:06)
--- NOTE | 2020-06-03 07:21 | PDOC.HOSPP ---
- Subjective Encounter Date: 06/03/20 Encounter Time: 09:40 Subjective: Patient reports continued shortness of breath and cough. She did have a severe episode of chest tightness this morning with elevated blood pressures that resolved after given as needed blood pressure medication. She did urinate more overnight with the Lasix IV yesterday. Overall feels about the same. - Objective Vital Signs & Weight: Vital Signs (12 hours) Temp Pulse Resp BP Pulse Ox 06/03/20 06:43 88 20 97 06/03/20 01:59 98 06/02/20 20:23 98 06/02/20 20:22 98 06/02/20 20:20 98 06/02/20 20:00 98.8 F 91 16 154/80 H 98 Weight Weight 216 lb 0.848 oz I&O: 06/02/20 06/03/20 06/04/20 06:59 06:59 06:59 Intake Total 1650 Balance 1650 Result Diagrams: 06/02/20 03:30 06/03/20 04:05 Hospitalist ROS - Review of Systems Constitutional: denies: fever, chills Respiratory: reports: cough, shortness of breath, SOB with excertion, wheezing Cardiovascular: denies: chest pain, palpitations Gastrointestinal: denies: nausea, vomiting, abdominal pain Genitourinary: denies: dysuria, hematuria - Medication Medications: Active Medications Generic Name Dose Route Start Last Admin Trade Name Freq PRN Reason Stop Dose Admin Hydrocodone Bitart/Acetaminophen 1 tab 05/31/20 11:33 06/02/20 20:04 Hydrocodone/Acetaminophen 10/325 Mg Tablet PO 1 tab Q4H PRN Administration Mild-Moderate Pain (1-5) Albuterol/Ipratropium 3 ml 05/31/20 13:00 06/03/20 06:43 Ipratropium/Albuterol Sulfate 3 Ml Neb NEB 3 ml [id number] MEKHI Administration Alprazolam 0.25 mg 06/02/20 09:37 06/02/20 10:34 Alprazolam 0.25 Mg Tab PO 0.25 mg TIDPRN PRN Administration Anxiety Atorvastatin Calcium 10 mg 05/31/20 21:00 06/02/20 20:04 Atorvastatin Calcium 10 Mg Tab PO 10 mg HS MEKHI Administration Clonidine 0.2 mg 06/02/20 09:00 06/02/20 09:25 Clonidine 0.2mg/24 Hour Patch TD 0.2 mg Q7DAYS MEKHI Administration Enoxaparin Sodium 40 mg 06/01/20 09:00 06/02/20 08:30 Enoxaparin Sodium 40 Mg/0.4 Ml Syringe SC Not Given 0900 MEKHI Famotidine 20 mg 05/31/20 21:00 06/02/20 20:10 Famotidine 20 Mg Tab PO Not Given BID MEKHI Fluticasone Propionate 1 gm 06/01/20 09:00 06/02/20 08:33 Fluticasone Propionate Nasal [place] 16 Gm Bottle NASAL 2 sprays DAILY [facility] Administration Guaifenesin 1,200 mg 05/31/20 21:00 06/02/20 20:11 Guaifenesin Er 600 Mg Tab PO Not Given Q12HR MEKHI Isosorbide Mononitrate 30 mg 06/02/20 09:00 06/02/20 08:30 Isosorbide Mononitrate Er 30 Mg Tab PO 30 mg DAILY MEKHI Administration Levofloxacin 500 mg 06/02/20 06:00 06/03/20 05:30 Levofloxacin 500 Mg Tab PO 06/09/20 06:01 500 mg 0600 [facility] Administration Levothyroxine Sodium 25 mcg 06/03/20 06:00 06/03/20 05:30 Levothyroxine Sodium 25 Mcg Tab PO 25 mcg 0600 [facility] Administration Losartan Potassium 100 mg 06/01/20 09:00 06/02/20 08:25 Losartan 25 Mg Tab PO 100 mg DAILY [facility] Administration Miscellaneous Medication 0 ml 06/02/20 14:00 06/03/20 05:31 Biotene Mouth [place] 44.3 Ml MM 1 spr [id number] [facility] Administration Mometasone Furoate/Formoterol Fumar 2 puff 05/31/20 18:30 06/03/20 06:45 Mometasone 200 Mcg/Formoterol 5 Mcg 120 Puff Inhaler INH 2 puff BID-RT MEKHI Administration Nicotine 14 mg 05/31/20 16:00 06/02/20 17:05 Nicotine 14 Mg Patch TD 14 mg Q24HR MEKHI Administration Nitroglycerin 0.4 mg 06/02/20 11:41 06/02/20 11:56 Nitroglycerin 0.4 Mg Tab (25 Tab Bottle) SL 0.4 mg Q5MIN PRN Administration Chest Pain Cytoxan [ 0 each 06/01/20 09:00 06/02/20 14:43 Cyclophosphamide] 50 PO Not Given Mg Caps DAILY MEKHI Prednisone 20 mg 06/01/20 21:00 06/02/20 20:04 Prednisone 20 Mg Tab PO 20 mg BID MEKHI Administration Promethazine HCl 25 mg 05/31/20 21:00 06/02/20 20:04 Promethazine 25 Mg Tab PO 25 mg HS MEKHI Administration Sodium Chloride 10 ml 05/31/20 21:00 06/02/20 20:11 Flush - Normal Saline 10 Ml Syringe IVF 10 ml Q12HR MEKHI Administration Sodium Chloride 10 ml 05/31/20 11:15 06/02/20 11:58 Flush - Normal Saline 10 Ml Syringe IVF 10 ml PRN PRN Administration Saline Flush Trazodone HCl 25 mg 06/01/20 21:12 06/02/20 20:04 Trazodone Hcl 50 Mg Tab PO 25 mg HSPRN PRN Administration Insomnia Hospitalist Exam Vitals: Vital Signs (12 hours) Temp Pulse Resp BP Pulse Ox 06/03/20 06:43 88 20 97 06/03/20 01:59 98 06/02/20 20:23 98 06/02/20 20:22 98 06/02/20 20:20 98 06/02/20 20:00 98.8 F 91 16 154/80 H 98 Weight Weight 216 lb 0.848 oz General Appearance: NAD, awake alert ENT: moist mucosa Heart: RRR, no murmur, no gallops, no rubs Respiratory: no rales, no ronchi, no tachypnea, wheezes Gastrointestinal: soft, non-tender, non-distended, normal bowel sounds Extremities - other findings: Trace edema to ankles, may be improved from yesterday Skin: no rashes Psychiatric: normal affect, normal behavior, A&O x 3 Hosp A/P - Plan Acute exacerbation of COPD We will continue nebulizers, steroids, antibiotics, switching to oral me dications per Dr. Arianna Keller following Acute respiratory failure with hypoxia Patient with history of 2 L nasal cannula use but now with increased oxygen requirement. On 3L NC. We will continue nasal cannula oxygen and wean as tolerated I believe anxiety is also a large component, alprazolam added, will increase the dose to 0.5 mg which is we have had her on before when she has been in. Community-acquired pneumonia Antibiotics switced to po Levaquin. No evidence of sepsis at this point Acute exacerbation of diastolic congestive heart failure Patient with elevated brain natriuretic peptide before. Echocardiogram and from 1 year ago had a normal ejection fraction. We will obtain a new echocardiogram - EF now 60-65%, no other significant abnormalities Dr. Luu following -Creatinine stable after dose of Lasix. Acute on chronic renal failure stage II We will monitor closely -Losartan restarted and being tolerated well. Creatinine stable at 1.3 after Lasix dose yesterday, will start daily oral Lasix Ovarian cancer Oncology following Hypertension Adjusting medications Very elevated yesterday. Suspicious that her anxiety and chemo effect is a large portion of the increase. Will adjust medicines as needed. Hyperlipidemia We will resume home medications DVT prophylaxis: Lovenox subcu GI prophylaxis: Pepcid twice a day Disposition: Home when okay with pulmonology. Dr. Keller think she will likely be in here another few days.
[2020-06-03] MEDS: predniSONE 20 MG TAB PO SCH (08:30)
[2020-06-03] MEDS: Famotidine 20 MG TAB PO SCH ×2 (08:57→20:13)
[2020-06-03] MEDS: guaiFENesin ER 600 MG TAB PO SCH ×2 (08:57→20:13)
[2020-06-03] MEDS: Fluticasone Propionate Nasal Spray 16 gm Bottle NASAL SCH (08:58)
[2020-06-03] MEDS: Losartan 25 MG TAB PO SCH (08:58)
[2020-06-03] MEDS: ALPRAZolam 0.25 MG TAB PO PRN (08:58)
[2020-06-03] MEDS: Enoxaparin Sodium 40 MG/0.4 ML SYRINGE SC SCH (08:58)
[2020-06-03] MEDS: hydrALAZINE 20 MG/ML VIAL SLOW IVP PRN ×2 (08:59→13:03)
[2020-06-03] MEDS ORDERED: Furosemide 20 MG TAB PO SCH (10:15)
--- NOTE | 2020-06-03 10:46 | PRG ---
DATE OF SERVICE: 06/03/2020 SUBJECTIVE: Awake, alert, responsive. OBJECTIVE: VITAL SIGNS: Temperature 98, respirations 18, sats are 96% on 3 L, blood pressure 190/92. CHEST: No wheezing. No crackles. CARDIAC: Normal S1. No gallops. ABDOMEN: No masses. LABORATORY DATA: Creatinine 1.35. ASSESSMENT AND PLAN: Chronic obstructive pulmonary disease, major anxiety, hypertension. I am going to restart her home medication. Continue supportive care, PT. Home hopefully in the next several days. Job ID: [id number]
[2020-06-03] MEDS: ALPRAZolam 0.5 MG TAB PO PRN ×2 (13:38→21:10)
[2020-06-03] MEDS: Nitroglycerin 0.4 MG TAB (25 Tab Bottle) SL PRN (13:38)
--- NOTE | 2020-06-03 14:12 | PDOC.CPN ---
- Subjective Date: 06/03/20 Time: 14:10 Interval history: Nurse at bedside, patient is complaining of chest pressure and abdominal pain. She also had these same complaints yesterday. Also complaining of continued shortness of breath. Nurse at bedside also giving medications for anxiety and pain. BP /, pulse 110, oxygen saturation 97% on 3 L NC. - Review of Systems General: reports: fatigue. denies: fever/chills, weight/appetite/sleep changes, night sweats Respiratory: reports: cough, shortness of breath. denies: congestion, exercise intolerance Cardiovascular: reports: chest pain. denies: palpitation, edema, paroxysmal nocturnal dyspnea, orthopnea Gastrointestinal: reports: abd pain. denies: nausea, vomiting, diarrhea, constipation, GI bleeding Musculoskeletal: denies: pain, tenderness, stiffness, swelling, arthritis/arthralgias Neurological: denies: numbness, syncope, seizure, weakness - Objective Allergies/Adverse Reactions: Allergies Allergy/AdvReac Type Severity Reaction Status Date / Time butorphanol tartrate Allergy Severe Anaphylaxis Verified 06/27/19 21:03 [From Stadol] meperidine HCl [From Demerol] Allergy Severe Anaphylaxis Verified 06/27/19 21:03 codeine Allergy Verified 06/27/19 21:03 ondansetron Allergy hypertensio Verified 06/27/19 21:03 [From Zofran (as n hydrochloride)] hydromorphone [From Dilaudid] AdvReac Severe vomiting Verified 06/27/19 21:03 morphine AdvReac Severe vomiting Verified 06/27/19 21:03 IV NARCOTICS Allergy Severe VERY Uncoded 06/27/19 21:03 SENSITIVE, NAUSEA/VOMITING, SUPRESSED BREATHING No Pain Injections Allergy Uncoded 06/27/19 21:03 Visit Medications: Current Medications Acetaminophen (Acetaminophen 325 Mg Tab) 650 mg PO Q4H PRN PRN Reason: Headache/Fever/Mild Pain (1-3) Last Admin: 06/03/20 13:09 Dose: 650 mg Documented by: Acetaminophen (Acetaminophen 650 Mg Suppository) 650 mg MA Q4H PRN PRN Reason: Headache/Fever/Mild Pain (1-3) Hydrocodone Bitart/Acetaminophen (Hydrocodone/Acetaminophen 10/325 Mg Tablet) 1 tab PO Q4H PRN PRN Reason: Mild-Moderate Pain (1-5) Last Admin: 06/02/20 20:04 Dose: 1 tab Documented by: Hydrocodone Bitart/Acetaminophen (Hydrocodone/Acetaminophen 10/325 Mg Tablet) 2 tab PO Q4H PRN PRN Reason: Severe Pain (7-10) Last Admin: 06/03/20 13:43 Dose: 2 tab Documented by: Albuterol Sulfate (Albuterol 200 Puff (6.7gm Inhaler)) 0 puff INH ASDIR [facility] Albuterol/Ipratropium (Ipratropium/Albuterol Sulfate 3 Ml Neb) 3 ml NEB [id number] PRN PRN Reason: SOB &/or Wheezing Albuterol/Ipratropium (Ipratropium/Albuterol Sulfate 3 Ml Neb) 3 ml NEB [id number] [facility] Last Admin: 06/03/20 06:43 Dose: 3 ml Documented by: Alprazolam (Alprazolam 0.5 Mg Tab) 0.5 mg PO TIDPRN PRN PRN Reason: Anxiety/Insomnia Last Admin: 06/03/20 13:38 Dose: 0.5 mg Documented by: Atorvastatin Calcium (Atorvastatin Calcium 10 Mg Tab) 10 mg PO HS [facility] Last Admin: 06/02/20 20:04 Dose: 10 mg Documented by: Clonidine (Clonidine 0.2mg/24 Hour Patch) 0.2 mg TD Q7DAYS [facility] Last Admin: 06/02/20 09:25 Dose: 0.2 mg Documented by: Enoxaparin Sodium (Enoxaparin Sodium 40 Mg/0.4 Ml Syringe) 40 mg SC 0900 [facility] Last Admin: 06/03/20 08:58 Dose: 40 mg Documented by: Famotidine (Famotidine 20 Mg Tab) 20 mg PO BID [facility] Last Admin: 06/03/20 08:57 Dose: 20 mg Documented by: Fluticasone Propionate (Fluticasone Propionate Nasal [place] 16 Gm Bottle) 1 gm NASAL DAILY [facility] Last Admin: 06/03/20 08:58 Dose: 2 sprays Documented by: Furosemide (Furosemide 20 Mg Tab) 20 mg PO DAILY [facility] Guaifenesin (Guaifenesin Er 600 Mg Tab) 1,200 mg PO Q12HR [facility] Last Admin: 06/03/20 08:57 Dose: 1,200 mg Documented by: Guaifenesin/Dextromethorphan (Guaifenesin Dm 100-10/5 Ml Udcup) 15 ml PO Q4H PRN PRN Reason: Cough Hydralazine HCl (Hydralazine 20 Mg/Ml Vial) 10 mg SLOW IVP Q4H PRN PRN Reason: SBP Greater Than 180 Last Admin: 06/03/20 13:03 Dose: 10 mg Documented by: Isosorbide Mononitrate (Isosorbide Mononitrate Er 60 Mg Tab) 60 mg PO DAILY [facility] Last Admin: 06/03/20 08:58 Dose: 60 mg Documented by: Levofloxacin (Levofloxacin 500 Mg Tab) 500 mg PO 0600 [facility] Stop: 06/09/20 06:01 Last Admin: 06/03/20 05:30 Dose: 500 mg Documented by: Levothyroxine Sodium (Levothyroxine Sodium 25 Mcg Tab) 25 mcg PO 0600 [facility] Last Admin: 06/03/20 05:30 Dose: 25 mcg Documented by: Losartan Potassium (Losartan 25 Mg Tab) 100 mg PO DAILY [facility] Last Admin: 06/03/20 08:58 Dose: 100 mg Documented by: Losartan Potassium (Losartan 25 Mg Tab) 100 mg PO DAILY [facility] Miscellaneous Medication (Biotene Mouth [place] 44.3 Ml) 0 ml MM [id number] [facility] Last Admin: 06/03/20 05:31 Dose: 1 spr Documented by: Mometasone Furoate/Formoterol Fumar (Mometasone 200 Mcg/Formoterol 5 Mcg 120 Puff Inhaler) 2 puff INH BID-RT [facility] Last Admin: 06/03/20 06:45 Dose: 2 puff Documented by: Nicotine (Nicotine 14 Mg Patch) 14 mg TD Q24HR [facility] Last Admin: 06/02/20 17:05 Dose: 14 mg Documented by: Nitroglycerin (Nitroglycerin 0.4 Mg Tab (25 Tab Bottle)) 0.4 mg SL Q5MIN PRN PRN Reason: Chest Pain Last Admin: 06/03/20 13:38 Dose: 0.4 mg Documented by: Cytoxan [ Cyclophosphamide] 50 Mg Caps 0 each PO DAILY [facility] Last Admin: 06/02/20 14:43 Dose: Not Given Documented by: Prednisone (Prednisone 20 Mg Tab) 20 mg PO DAILY [facility] Promethazine HCl (Promethazine 25 Mg Tab) 25 mg PO HS [facility] Last Admin: 06/02/20 20:04 Dose: 25 mg Documented by: Senna/Docusate Sodium (Senokot S 8.6-50 Mg Tab) 2 tab PO BID PRN PRN Reason: Constipation Sodium Chloride (Flush - Normal Saline 10 Ml Syringe) 10 ml IVF Q12HR [facility] Last Admin: 06/02/20 20:11 Dose: 10 ml Documented by: Sodium Chloride (Flush - Normal Saline 10 Ml Syringe) 10 ml IVF PRN PRN PRN Reason: Saline Flush Last Admin: 06/02/20 11:58 Dose: 10 ml Documented by: Trazodone HCl (Trazodone Hcl 50 Mg Tab) 25 mg PO HSPRN PRN PRN Reason: Insomnia Last Admin: 06/02/20 20:04 Dose: 25 mg Documented by: Vital Signs & Weight: Vital Signs Temp Pulse Resp BP BP Pulse Ox 06/03/20 13:03 88 195/92 H 06/03/20 08:59 88 196/92 H 06/03/20 08:00 97.6 F 81 18 196/92 H 97 06/03/20 06:43 88 20 97 Weight 216 lb 0.848 oz - Physical Exam General: other (mild distress, holding her abdomen c/o pain) HEENT: mucus membranes moist Neck: no JVD/HJR, no bruit Cardiac: regular rate, regular rhythm, tachycardia, S1/S2 Lungs: oxygen, other (scattered wheezes throughout bilateral lung vera) Neuro: grossly intact Abdomen: active bowel sounds, soft, tender Extremities: no cyanosis, no clubbing, no edema Skin: clear Musculoskeletal: no pain - Labs Result Diagrams: 06/02/20 03:30 06/03/20 04:05 Troponin/CKMB Troponin I 0.018 ng/mL (< 0.028) 06/02/20 12:35 - EKG Interpretation EKG Method: 12 Lead EKG: sinus rhythm (12 lead EKG from 06/03/2020 showed NSR) - Assessment/Plan Assessment/Plan: 1. COPD exacerbation: patient continues to have shortness of breath and scattered wheezing throughout her bilateral lung vera. Respiratory therapy called for nebulizer treatment due to shortness of breath while in the room. 2. Community-acquired pneumonia: treated by primary care services, she is receiving antibiotics. She has diffuse wheezes throughout her bilateral lungs, she remains on oxygen via nasal cannula 3. Congestive heart failure-diastolic: recent echocardiogram revealed an ejection fractions of 60-65%, trace mitral and tricuspid regurgitation, and mild aortic valve regurgitation 4. hypertension: her BP was elevated yesterday, her Imdur was increased today. She was also given PRN Nitro for chest pain during exam, her BP was 102/55 during assessment. 5. History of abdominal aortic aneurysm repair 6. Ovarian cancer 7. Anxiety: the patient is very anxious about her chemo medication and her shortness of breath, she was given some Xanax today, she may need this as a scheduled medication d/t her high anxiety levels. 8. Edema: resolved. No edema to BLE or face. 9. Chest pressure: the patient is complaining of chest pressure and feels as if someone is sitting on her chest. The patient has had this complaint everyday since hospital admission, upon speaking with the patient and family, she has this sensation daily per patient & family report. Troponins negative yesterday, No acute EKG changes. She did have a negative stress test in 2019. Nurse at bedside did give patient PRN anxiety medication. Pt. seen and eval. by me. I agree with the A/P by the [employer]. She has multiple complaints from chest heaviness to pain in her back and headaches. The BP has been difficult to control and some of this is felt to be due to anxiety. I will continue to adjust the BP meds. She is not a candidate for betablockers due to her COPD. Chest: diffuse wheezing, RRR. Mild left lower leg edema.The BP needs to be controlled due to her history of AAA which has been repaired but may be at risk for further aneurysms. She may need further eval. of the AAA repair if she continues to have chest and back pain. She is however not a good candidate for any intervention in the event she does have an issue with the aorta.I will continue to increase the nitrates and clonidine as tolerated. kyree
[2020-06-03] MEDS: Senokot S 8.6-50 MG TAB PO PRN ×2 (15:15→20:14)
[2020-06-03] MEDS: CYCLOPHOSPHAMIDE PO SCH (16:49)
[2020-06-03] MEDS: Atorvastatin Calcium 10 MG TAB PO SCH (20:14)
[2020-06-03] MEDS: HYDROcodone/Acetaminophen 10/325 mg Tablet PO PRN (20:14)
[2020-06-03] MEDS: Promethazine 25 MG TAB PO SCH (20:14)
[2020-06-03] MEDS: Nicotine 14 MG PATCH TD SCH (20:15)
[2020-06-03] MEDS: Promethazine HCl 25 MG in Sodium Chloride 0.9% 50 ML IVPB PRN (23:40)
[2020-06-04] MEDS: BIOTENE MOUTH SPRAY 44.3 ML MM SCH ×5 (05:35→19:56)
[2020-06-04] MEDS: Levothyroxine Sodium 25 MCG TAB PO SCH ×2 (05:35→09:54)
[2020-06-04] MEDS: Promethazine HCl 25 MG in Sodium Chloride 0.9% 50 ML IVPB PRN (05:44)
[2020-06-04 05:53] LABS: #Eosinphils 0.1 thou/uL (0.0-0.7); #Lymphocytes 0.5 thou/uL (1.20-3.40); #Monocytes 0.7 thou/uL (0.11-0.59); #Neutrophils 8.9 thou/uL (1.40-6.50); %Basophils 0.1 % (0.0-1.0); %Eosinophils 0.9 % (0.0-10.0); %Lymphocytes 5.1 % (21.0-51.0); %Neutrophils 86.9 % (42.0-75.0); Hemoglobin 9.8 g/dL (12.0-16.0); Mean Corpuscular Hemoglobin 35.6 pg (27.0-31.0); Mean Platelet Volume 8.9 fL (7.4-10.4); Platelet Count 96 thou/uL (130-400); Red Blood Cell (RBC) Count 2.75 mill/uL (4.20-5.40); White Blood Cell (WBC) Count 10.2 thou/uL (4.8-10.8)
[2020-06-04 06:01] LABS: Anion Gap 11 mmol/L (10-20); BUN (Urea Nitrogen) 52 mg/dL (9.8-20.1); Calc. Creatinine Clearance 61 mL/min (70-130); Calcium 7.9 mg/dL (7.8-10.44); Carbon Dioxide 30 mmol/L (23-31); Chloride 106 mmol/L (98-107); Glucose 105 mg/dL (80-115); Potassium 3.7 mmol/L (3.5-5.1); Sodium 143 mmol/L (136-145)
[2020-06-04] MEDS: Mometasone 200 MCG/Formoterol 5 MCG 120 PUFF INHALER INH SCH ×2 (06:46→19:14)
[2020-06-04] MEDS ORDERED: Ondansetron PF 4 MG/2 ML Vial IVP PRN (06:59)
[2020-06-04] MEDS ORDERED: GUAIFENESIN SF SOLN 200 MG/10 ML UDCUP PO PRN (06:59)
[2020-06-04] MEDS ORDERED: Benzonatate 100 MG CAP PO PRN (06:59)
[2020-06-04] MEDS ORDERED: Temazepam 15 MG CAP PO PRN (06:59)
[2020-06-04] MEDS ORDERED: Loperamide HCl 2 MG CAP PO PRN (06:59)
[2020-06-04] MEDS ORDERED: Cepastat Lozenges 1 LOZ PO PRN (06:59)
[2020-06-04] MEDS ORDERED: Calcium Carbonate 500 MG ChewTAB PO PRN (06:59)
[2020-06-04] MEDS ORDERED: Sodium Chloride 0.65% Nasal 44 ML BOT EA NARE PRN (06:59)
[2020-06-04] MEDS ORDERED: Loratadine 10 MG TAB PO PRN (06:59)
[2020-06-04] MEDS ORDERED: Ondansetron ODT 4 MG TAB PO PRN (06:59)
[2020-06-04] MEDS: HYDROcodone/Acetaminophen 10/325 mg Tablet PO PRN ×2 (10:21→19:53)
[2020-06-04] MEDS: predniSONE 20 MG TAB PO SCH (10:22)
[2020-06-04] MEDS: Furosemide 20 MG TAB PO SCH (10:23)
[2020-06-04] MEDS: Cyanocobalamin (Vitamin B-12) 1,000 MCG TAB PO SCH (10:24)
[2020-06-04] MEDS: Enoxaparin Sodium 40 MG/0.4 ML SYRINGE SC SCH (10:24)
[2020-06-04] MEDS: Fluticasone Propionate Nasal Spray 16 gm Bottle NASAL SCH (10:24)
[2020-06-04] MEDS: Folic Acid 1 MG TAB PO SCH (10:25)
[2020-06-04] MEDS: CYCLOPHOSPHAMIDE PO SCH (10:25)
[2020-06-04] MEDS: guaiFENesin ER 600 MG TAB PO SCH ×2 (10:25→19:56)
--- NOTE | 2020-06-04 10:46 | PDOC.HOSPP ---
- Subjective Encounter Date: 06/04/20 Encounter Time: 07:00 Subjective: Patient seen and examined bedside today, patient is complaining of vague abdominal discomfort, her breathing is stable, - Objective Vital Signs & Weight: Vital Signs (12 hours) Temp Pulse Resp BP Pulse Ox 06/04/20 08:00 97.9 F 102 H 18 156/76 H 98 06/04/20 06:45 98 18 98 06/04/20 03:14 94 20 97 Weight Weight 216 lb 0.848 oz I&O: 06/03/20 06/04/20 06/05/20 06:59 06:59 06:59 Intake Total 1650 900 Output Total 500 Balance 1650 400 Result Diagrams: 06/04/20 05:33 06/04/20 05:33 Hospitalist ROS - Review of Systems ENT: denies: ear pain, ear discharge, nose pain, nose discharge, nose congestion, mouth pain, mouth swelling, throat pain, throat swelling, other Respiratory: reports: shortness of breath, SOB with excertion. denies: cough, dry, hemoptysis, pleuritic pain, sputum, wheezing, other Cardiovascular: denies: chest pain, palpitations, orthopnea, paroxysmal noc. dyspnea, edema, light headedness, other Gastrointestinal: denies: nausea, vomiting, abdominal pain, diarrhea, constipation, melena, hematochezia, other Genitourinary: denies: dysuria, frequency, incontinence, hematuria, retention, other Musculoskeletal: denies: neck pain, shoulder pain, arm pain, back pain, hand pain, leg pain, foot pain, other - Medication Medications: Active Medications Generic Name Dose Route Start Last Admin Trade Name Freq PRN Reason Stop Dose Admin Acetaminophen 650 mg 05/31/20 10:49 06/03/20 13:09 Acetaminophen 325 Mg Tab PO 650 mg Q4H PRN Administration Headache/Fever/Mild Pain (1-3) Hydrocodone Bitart/Acetaminophen 1 tab 05/31/20 11:33 06/04/20 10:21 Hydrocodone/Acetaminophen 10/325 Mg Tablet PO 1 tab Q4H PRN Administration Mild-Moderate Pain (1-5) Hydrocodone Bitart/Acetaminophen 2 tab 05/31/20 11:33 06/03/20 13:43 Hydrocodone/Acetaminophen 10/325 Mg Tablet PO 2 tab Q4H PRN Administration Severe Pain (7-10) Albuterol/Ipratropium 3 ml 05/31/20 13:00 06/04/20 06:45 Ipratropium/Albuterol Sulfate 3 Ml Neb NEB 3 ml [id number] [facility] Administration Alprazolam 0.5 mg 06/03/20 10:24 06/03/20 21:10 Alprazolam 0.5 Mg Tab PO 0.5 mg TIDPRN PRN Administration Anxiety/Insomnia Atorvastatin Calcium 10 mg 05/31/20 21:00 06/03/20 20:14 Atorvastatin Calcium 10 Mg Tab PO 10 mg HS [facility] Administration Clonidine 0.2 mg 06/02/20 09:00 06/02/20 09:25 Clonidine 0.2mg/24 Hour Patch TD 0.2 mg Q7DAYS [facility] Administration Cyanocobalamin 1,000 mcg 06/04/20 09:00 06/04/20 10:24 Cyanocobalamin (Vitamin B-12) 1,000 Mcg Tab PO Not Given DAILY [facility] Enoxaparin Sodium 40 mg 06/01/20 09:00 06/04/20 10:24 Enoxaparin Sodium 40 Mg/0.4 Ml Syringe SC Not Given 09 [facility] Fluticasone Propionate 1 gm 06/01/20 09:00 06/04/20 10:24 Fluticasone Propionate Nasal [place] 16 Gm Bottle NASAL Not Given DAILY [facility] Folic Acid 1 mg 06/04/20 09:00 06/04/20 10:25 Folic Acid 1 Mg Tab PO Not Given DAILY [facility] Furosemide 20 mg 06/04/20 09:00 06/04/20 10:23 Furosemide 20 Mg Tab PO 20 mg DAILY [facility] Administration Guaifenesin 1,200 mg 05/31/20 21:00 06/04/20 10:25 Guaifenesin Er 600 Mg Tab PO Not Given Q12HR [facility] Hydralazine HCl 10 mg 06/02/20 11:12 06/03/20 13:03 Hydralazine 20 Mg/Ml Vial SLOW IVP 10 mg Q4H PRN Administration SBP Greater Than 180 Promethazine HCl 25 mg/ Sodium 51 mls @ 102 mls/hr 06/03/20 22:53 06/04/20 05:44 Chloride IVPB 51 mls Q6H PRN Administration Nausea Isosorbide Mononitrate 60 mg 06/03/20 09:00 06/04/20 10:23 Isosorbide Mononitrate Er 60 Mg Tab PO 60 mg DAILY [facility] Administration Levofloxacin 500 mg 06/02/20 06:00 06/04/20 05:34 Levofloxacin 500 Mg Tab PO 06/09/20 06:01 Not Given 0600 [facility] Levothyroxine Sodium 25 mcg 06/03/20 06:00 06/04/20 09:54 Levothyroxine Sodium 25 Mcg Tab PO 25 mcg 0600 [facility] Administration Miscellaneous Medication 0 ml 06/02/20 14:00 06/04/20 10:26 Biotene Mouth [place] 44.3 Ml MM Not Given [id number] [facility] Mometasone Furoate/Formoterol Fumar 2 puff 05/31/20 18:30 06/04/20 06:46 Mometasone 200 Mcg/Formoterol 5 Mcg 120 Puff Inhaler INH 2 puff BID-RT [facility] Administration Nicotine 14 mg 05/31/20 16:00 06/03/20 20:15 Nicotine 14 Mg Patch TD 14 mg Q24HR [facility] Administration Nitroglycerin 0.4 mg 06/02/20 11:41 06/03/20 13:38 Nitroglycerin 0.4 Mg Tab (25 Tab Bottle) SL 0.4 mg Q5MIN PRN Administration Chest Pain Pantoprazole Sodium 40 mg 06/04/20 09:00 06/04/20 10:25 Pantoprazole 40 Mg Tab PO Not Given DAILY [facility] Cytoxan [ 0 each 06/01/20 09:00 06/04/20 10:25 Cyclophosphamide] 50 PO Not Given Mg Caps DAILY [facility] Prednisone 20 mg 06/04/20 09:00 06/04/20 10:22 Prednisone 20 Mg Tab PO 20 mg DAILY [facility] Administration Promethazine HCl 25 mg 05/31/20 21:00 06/03/20 20:14 Promethazine 25 Mg Tab PO 25 mg HS [facility] Administration Senna/Docusate Sodium 2 tab 05/31/20 10:49 06/03/20 20:14 Senokot S 8.6-50 Mg Tab PO 2 tab BID PRN Administration Constipation Sodium Chloride 10 ml 05/31/20 21:00 06/04/20 10:26 Flush - Normal Saline 10 Ml Syringe IVF 10 ml Q12HR [facility] Administration Sodium Chloride 10 ml 05/31/20 11:15 06/02/20 11:58 Flush - Normal Saline 10 Ml Syringe IVF 10 ml PRN PRN Administration Saline Flush Trazodone HCl 25 mg 06/01/20 21:12 06/02/20 20:04 Trazodone Hcl 50 Mg Tab PO 25 mg HSPRN PRN Administration Insomnia Hospitalist Exam Vitals: Vital Signs (12 hours) Temp Pulse Resp BP Pulse Ox 06/04/20 08:00 97.9 F 102 H 18 156/76 H 98 06/04/20 06:45 98 18 98 06/04/20 03:14 94 20 97 Weight Weight 216 lb 0.848 oz General Appearance: NAD, awake alert Eye: PERRL, anicteric sclera ENT: normocephalic atraumatic, no oropharyngeal lesions Neck: supple, symmetric, no JVD, no thyromegaly Heart: RRR, no murmur, no gallops, no rubs Respiratory - other findings: Few bilateral wheezing heard Gastrointestinal: soft, non-tender, non-distended, normal bowel sounds Extremities: no clubbing, 1+ LE edema Skin: normal turgor, no lesions Neurological: no focal deficits Musculoskeletal: normal tone, normal strength Psychiatric: normal affect, normal behavior Hosp A/P (1) Acute respiratory failure with hypoxia Code(s): J96.01 - ACUTE RESPIRATORY FAILURE WITH HYPOXIA Status: Acute (2) COPD exacerbation Code(s): J44.1 - CHRONIC OBSTRUCTIVE PULMONARY DISEASE W (ACUTE) EXACERBATION Status: Acute (3) Constipation Code(s): K59.00 - CONSTIPATION, UNSPECIFIED Status: Acute Qualifiers: Constipation type: slow transit constipation Qualified Code(s): K59.01 - Slow transit constipation (4) Anemia Code(s): D64.9 - ANEMIA, UNSPECIFIED Status: Chronic Qualifiers: Anemia type: unspecified type Qualified Code(s): D64.9 - Anemia, unspecified (5) Dyslipidemia Code(s): E78.5 - HYPERLIPIDEMIA, UNSPECIFIED Status: Chronic (6) HTN (hypertension) Code(s): I10 - ESSENTIAL (PRIMARY) HYPERTENSION Status: Chronic Qualifiers: Hypertension type: essential hypertension Qualified Code(s): I10 - Essential (primary) hypertension (7) History of aortic aneurysm repair Code(s): Z98.890 - OTHER SPECIFIED POSTPROCEDURAL STATES; Z86.79 - PERSONAL HISTORY OF OTHER DISEASES OF THE CIRCULATORY SYSTEM Status: Chronic (8) Hypothyroidism Code(s): E03.9 - HYPOTHYROIDISM, UNSPECIFIED Status: Chronic Qualifiers: Hypothyroidism type: unspecified Qualified Code(s): E03.9 - Hypothyroidism, unspecified (9) Ovarian cancer Status: Chronic (10) Reflex sympathetic dystrophy Code(s): G90.50 - COMPLEX REGIONAL PAIN SYNDROME I, UNSPECIFIED Status: Chronic (11) Tobacco abuse Code(s): Z72.0 - TOBACCO USE Status: Chronic - Plan old records reviewed/req, respiratory therapy Continue respiratory therapy Cardiology and pulmonary recommendation appreciated Treat underlying constipation Ambulate as tolerated Wean off oxygen as tolerated Medication reviewed and continue provide symptomatic and supportive care
[2020-06-04] MEDS: Losartan 25 MG TAB PO SCH (11:39)
[2020-06-04] MEDS: ALPRAZolam 0.5 MG TAB PO PRN ×2 (11:46→19:53)
[2020-06-04] MEDS: Nicotine 14 MG PATCH TD SCH (16:20)
--- NOTE | 2020-06-04 18:02 | PDOC.CPN ---
- Subjective Date: 06/04/20 Time: 17:59 Interval history: She is doing much better today. She is resting comfortably and feels the best she has felt in some time. No chest pain. - Review of Systems General: denies: fever/chills, weight/appetite/sleep changes, night sweats, fatigue Respiratory: denies: cough, congestion, shortness of breath, exercise intolerance Cardiovascular: denies: chest pain, palpitation, edema, paroxysmal nocturnal dyspnea, orthopnea Gastrointestinal: denies: nausea, vomiting, diarrhea, constipation, abd pain, GI bleeding Musculoskeletal: denies: pain, tenderness, stiffness, swelling, arthritis/arthralgias Neurological: denies: numbness, syncope, seizure, weakness - Objective Allergies/Adverse Reactions: Allergies Allergy/AdvReac Type Severity Reaction Status Date / Time butorphanol tartrate Allergy Severe Anaphylaxis Verified 06/27/19 21:03 [From Stadol] meperidine HCl [From Demerol] Allergy Severe Anaphylaxis Verified 06/27/19 21:03 codeine Allergy Verified 06/27/19 21:03 ondansetron Allergy hypertensio Verified 06/27/19 21:03 [From Zofran (as n hydrochloride)] hydromorphone [From Dilaudid] AdvReac Severe vomiting Verified 06/27/19 21:03 morphine AdvReac Severe vomiting Verified 06/27/19 21:03 IV NARCOTICS Allergy Severe VERY Uncoded 06/27/19 21:03 SENSITIVE, NAUSEA/VOMITING, SUPRESSED BREATHING No Pain Injections Allergy Uncoded 06/27/19 21:03 Visit Medications: Current Medications Acetaminophen (Acetaminophen 325 Mg Tab) 650 mg PO Q4H PRN PRN Reason: Headache/Fever/Mild Pain (1-3) Last Admin: 06/03/20 13:09 Dose: 650 mg Documented by: Acetaminophen (Acetaminophen 650 Mg Suppository) 650 mg MA Q4H PRN PRN Reason: Headache/Fever/Mild Pain (1-3) Hydrocodone Bitart/Acetaminophen (Hydrocodone/Acetaminophen 10/325 Mg Tablet) 1 tab PO Q4H PRN PRN Reason: Mild-Moderate Pain (1-5) Last Admin: 06/04/20 10:21 Dose: 1 tab Documented by: Hydrocodone Bitart/Acetaminophen (Hydrocodone/Acetaminophen 10/325 Mg Tablet) 2 tab PO Q4H PRN PRN Reason: Severe Pain (7-10) Last Admin: 06/03/20 13:43 Dose: 2 tab Documented by: Albuterol Sulfate (Albuterol 200 Puff (6.7gm Inhaler)) 0 puff INH ASDIR [facility] Albuterol/Ipratropium (Ipratropium/Albuterol Sulfate 3 Ml Neb) 3 ml NEB [id number] [facility] Last Admin: 06/04/20 13:42 Dose: 3 ml Documented by: Albuterol/Ipratropium (Ipratropium/Albuterol Sulfate 3 Ml Neb) 3 ml NEB T2CH-NS PRN PRN Reason: SOB &/or Wheezing Alprazolam (Alprazolam 0.5 Mg Tab) 0.5 mg PO TIDPRN PRN PRN Reason: Anxiety/Insomnia Last Admin: 06/04/20 11:46 Dose: 0.5 mg Documented by: Atorvastatin Calcium (Atorvastatin Calcium 10 Mg Tab) 10 mg PO HS [facility] Last Admin: 06/03/20 20:14 Dose: 10 mg Documented by: Benzonatate (Benzonatate 100 Mg Cap) 100 mg PO Q6H PRN PRN Reason: Cough Calcium Carbonate (Calcium Carbonate 500 Mg Chewtab) 1,000 mg PO Q4H PRN PRN Reason: Heartburn or Indigestion Clonidine (Clonidine 0.2mg/24 Hour Patch) 0.2 mg TD Q7DAYS [facility] Last Admin: 06/02/20 09:25 Dose: 0.2 mg Documented by: Cyanocobalamin (Cyanocobalamin (Vitamin B-12) 1,000 Mcg Tab) 1,000 mcg PO DAILY [facility] Last Admin: 06/04/20 10:24 Dose: Not Given Documented by: Enoxaparin Sodium (Enoxaparin Sodium 40 Mg/0.4 Ml Syringe) 40 mg SC 0900 [facility] Last Admin: 06/04/20 10:24 Dose: Not Given Documented by: Fluticasone Propionate (Fluticasone Propionate Nasal [place] 16 Gm Bottle) 1 gm NASAL DAILY [facility] Last Admin: 06/04/20 10:24 Dose: Not Given Documented by: Folic Acid (Folic Acid 1 Mg Tab) 1 mg PO DAILY [facility] Last Admin: 06/04/20 10:25 Dose: Not Given Documented by: Furosemide (Furosemide 20 Mg Tab) 20 mg PO DAILY [facility] Last Admin: 06/04/20 10:23 Dose: 20 mg Documented by: Guaifenesin (Guaifenesin Er 600 Mg Tab) 1,200 mg PO Q12HR [facility] Last Admin: 06/04/20 10:25 Dose: Not Given Documented by: Guaifenesin (Guaifenesin Sf Soln 200 Mg/10 Ml Udcup) 200 mg PO Q4H PRN PRN Reason: Cough Guaifenesin/Dextromethorphan (Guaifenesin Dm 100-10/5 Ml Udcup) 15 ml PO Q4H PRN PRN Reason: Cough Hydralazine HCl (Hydralazine 20 Mg/Ml Vial) 10 mg SLOW IVP Q4H PRN PRN Reason: SBP Greater Than 180 Last Admin: 06/03/20 13:03 Dose: 10 mg Documented by: Promethazine HCl 25 mg/ Sodium (Chloride) 51 mls @ 102 mls/hr IVPB Q6H PRN PRN Reason: Nausea Last Admin: 06/04/20 05:44 Dose: 51 mls Documented by: Isosorbide Mononitrate (Isosorbide Mononitrate Er 60 Mg Tab) 60 mg PO DAILY [facility] Last Admin: 06/04/20 10:23 Dose: 60 mg Documented by: Levofloxacin (Levofloxacin 500 Mg Tab) 500 mg PO 0600 [facility] Stop: 06/09/20 06:01 Last Admin: 06/04/20 05:34 Dose: Not Given Documented by: Levothyroxine Sodium (Levothyroxine Sodium 25 Mcg Tab) 25 mcg PO 0600 [facility] Last Admin: 06/04/20 09:54 Dose: 25 mcg Documented by: Loperamide HCl (Loperamide Hcl 2 Mg Cap) 2 mg PO PRN PRN PRN Reason: Diarrhea/Loose Stools Loratadine (Loratadine 10 Mg Tab) 10 mg PO DAILYPRN PRN PRN Reason: Sinus Symptoms Losartan Potassium (Losartan 25 Mg Tab) 100 mg PO DAILY [facility] Last Admin: 06/04/20 11:39 Dose: 100 mg Documented by: Miscellaneous Medication (Biotene Mouth [place] 44.3 Ml) 0 ml MM S4CS-QT SCH Last Admin: 06/04/20 17:26 Dose: Not Given Documented by: Mometasone Furoate/Formoterol Fumar (Mometasone 200 Mcg/Formoterol 5 Mcg 120 Puff Inhaler) 2 puff INH BID-RT [facility] Last Admin: 06/04/20 06:46 Dose: 2 puff Documented by: Nicotine (Nicotine 14 Mg Patch) 14 mg TD Q24HR [facility] Last Admin: 06/04/20 16:20 Dose: 14 mg Documented by: Nitroglycerin (Nitroglycerin 0.4 Mg Tab (25 Tab Bottle)) 0.4 mg SL Q5MIN PRN PRN Reason: Chest Pain Last Admin: 06/03/20 13:38 Dose: 0.4 mg Documented by: Pantoprazole Sodium (Pantoprazole 40 Mg Tab) 40 mg PO DAILY [facility] Last Admin: 06/04/20 10:25 Dose: Not Given Documented by: Cytoxan [ Cyclophosphamide] 50 Mg Caps 0 each PO DAILY [facility] Last Admin: 06/04/20 10:25 Dose: Not Given Documented by: Prednisone (Prednisone 20 Mg Tab) 20 mg PO DAILY [facility] Last Admin: 06/04/20 10:22 Dose: 20 mg Documented by: Promethazine HCl (Promethazine 25 Mg Tab) 25 mg PO HS [facility] Last Admin: 06/03/20 20:14 Dose: 25 mg Documented by: Senna/Docusate Sodium (Senokot S 8.6-50 Mg Tab) 2 tab PO BID PRN PRN Reason: Constipation Last Admin: 06/03/20 20:14 Dose: 2 tab Documented by: Sodium Chloride (Flush - Normal Saline 10 Ml Syringe) 10 ml IVF Q12HR [facility] Last Admin: 06/04/20 10:26 Dose: 10 ml Documented by: Sodium Chloride (Flush - Normal Saline 10 Ml Syringe) 10 ml IVF PRN PRN PRN Reason: Saline Flush Last Admin: 06/02/20 11:58 Dose: 10 ml Documented by: Sodium Chloride (Sodium Chloride 0.65% Nasal 44 Ml Bot) 0 ml EA NARE QIDPRN PRN PRN Reason: Nasal Congestion Temazepam (Temazepam 15 Mg Cap) 15 mg PO HSPRN PRN PRN Reason: Insomnia Throat Lozenges (Cepastat Lozenges 1 [place]) 1 heriberto PO Q2H PRN PRN Reason: Sore Throat Trazodone HCl (Trazodone Hcl 50 Mg Tab) 25 mg PO HSPRN PRN PRN Reason: Insomnia Last Admin: 06/02/20 20:04 Dose: 25 mg Documented by: Vital Signs & Weight: Vital Signs Temp Pulse Resp BP Pulse Ox 06/04/20 16:20 90 L 06/04/20 16:00 127/68 96 06/04/20 14:02 105 H 97 06/04/20 13:42 18 98 06/04/20 12:33 117/63 06/04/20 08:00 97.9 F 102 H 18 156/76 H 98 06/04/20 06:45 98 18 98 Weight 216 lb 0.848 oz - Physical Exam General: alert & oriented x3 HEENT: mucus membranes moist Neck: supple neck Cardiac: regular rate and rhythm Lungs: clear to auscultation Neuro: grossly intact Abdomen: active bowel sounds Extremities: no edema Skin: clear Musculoskeletal: no pain - Labs Result Diagrams: 06/04/20 05:33 06/04/20 05:33 Troponin/CKMB Troponin I 0.018 ng/mL (< 0.028) 06/02/20 12:35 - Assessment/Plan Assessment/Plan: 1. COPD exacerbation 2. Community-acquired pneumonia 3. Congestive heart failure-diastolic 4. Hypertension 5. History of abdominal aortic aneurysm repair 6. Ovarian cancer 7. Anxiety 8. Edema, resolved. PLAN: - BP much better controlled - Anxiety controlled ans she feels well today - CV stable.
[2020-06-04] MEDS: Promethazine 25 MG TAB PO SCH (19:54)
[2020-06-04] MEDS: Atorvastatin Calcium 10 MG TAB PO SCH (19:54)
[2020-06-05] MEDS: Levothyroxine Sodium 25 MCG TAB PO SCH (05:20)
[2020-06-05] MEDS: BIOTENE MOUTH SPRAY 44.3 ML MM SCH ×5 (05:34→20:21)
[2020-06-05] MEDS: Mometasone 200 MCG/Formoterol 5 MCG 120 PUFF INHALER INH SCH ×2 (07:27→19:21)
[2020-06-05] MEDS: Enoxaparin Sodium 40 MG/0.4 ML SYRINGE SC SCH (09:05)
[2020-06-05] MEDS: Cyanocobalamin (Vitamin B-12) 1,000 MCG TAB PO SCH (09:14)
[2020-06-05] MEDS: Fluticasone Propionate Nasal Spray 16 gm Bottle NASAL SCH (09:14)
[2020-06-05] MEDS: guaiFENesin ER 600 MG TAB PO SCH ×2 (09:15→20:21)
[2020-06-05] MEDS: Furosemide 20 MG TAB PO SCH (09:15)
[2020-06-05] MEDS: predniSONE 20 MG TAB PO SCH (09:15)
[2020-06-05] MEDS: Folic Acid 1 MG TAB PO SCH (09:15)
[2020-06-05] MEDS: Losartan 25 MG TAB PO SCH (09:15)
[2020-06-05] MEDS: CYCLOPHOSPHAMIDE PO SCH (09:17)
[2020-06-05] MEDS: HYDROcodone/Acetaminophen 10/325 mg Tablet PO PRN ×3 (09:25→20:20)
[2020-06-05] MEDS: ALPRAZolam 0.5 MG TAB PO PRN ×2 (09:27→20:20)
--- NOTE | 2020-06-05 10:41 | PDOC.HOSPP ---
- Subjective Encounter Date: 06/05/20 Encounter Time: 07:10 Subjective: This morning patient's blood pressure was elevated, today she has no abdominal pain, her sister is present bedside, patient subjectively feels better today, she is overall weak, patient reports that she cannot take care of herself at home like this, she expressed her wish to go to half-way home - Objective Vital Signs & Weight: Vital Signs (12 hours) Temp Pulse Resp BP Pulse Ox 06/05/20 08:00 98 F 98 20 177/83 H 95 06/05/20 07:26 84 16 95 06/05/20 05:40 88 16 156/73 H 06/05/20 00:21 20 06/04/20 23:44 97 16 141/70 H Weight Weight 216 lb 0.848 oz I&O: 06/04/20 06/05/20 06/06/20 06:59 06:59 06:59 Intake Total 900 120 Output Total 500 Balance 400 120 Result Diagrams: 06/04/20 05:33 06/04/20 05:33 Hospitalist ROS - Review of Systems Constitutional: reports: weakness ENT: denies: ear pain, ear discharge, nose pain, nose discharge, nose congestion, mouth pain, mouth swelling, throat pain, throat swelling, other Respiratory: reports: cough, shortness of breath, SOB with excertion. denies: dry, hemoptysis, pleuritic pain, sputum, wheezing, other Cardiovascular: denies: chest pain, palpitations, orthopnea, paroxysmal noc. dyspnea, edema, light headedness, other Gastrointestinal: denies: nausea, vomiting, abdominal pain, diarrhea, constipation, melena, hematochezia, other Genitourinary: denies: dysuria, frequency, incontinence, hematuria, retention, other Musculoskeletal: denies: neck pain, shoulder pain, arm pain, back pain, hand pain, leg pain, foot pain, other - Medication Medications: Active Medications Generic Name Dose Route Start Last Admin Trade Name Freq PRN Reason Stop Dose Admin Acetaminophen 650 mg 05/31/20 10:49 06/03/20 13:09 Acetaminophen 325 Mg Tab PO 650 mg Q4H PRN Administration Headache/Fever/Mild Pain (1-3) Hydrocodone Bitart/Acetaminophen 1 tab 05/31/20 11:33 06/05/20 09:25 Hydrocodone/Acetaminophen 10/325 Mg Tablet PO 1 tab Q4H PRN Administration Mild-Moderate Pain (1-5) Hydrocodone Bitart/Acetaminophen 2 tab 05/31/20 11:33 06/03/20 13:43 Hydrocodone/Acetaminophen 10/325 Mg Tablet PO 2 tab Q4H PRN Administration Severe Pain (7-10) Albuterol/Ipratropium 3 ml 05/31/20 13:00 06/05/20 07:26 Ipratropium/Albuterol Sulfate 3 Ml Neb NEB 3 ml [id number] [facility] Administration Alprazolam 0.5 mg 06/03/20 10:24 06/05/20 09:27 Alprazolam 0.5 Mg Tab PO 0.5 mg TIDPRN PRN Administration Anxiety/Insomnia Atorvastatin Calcium 10 mg 05/31/20 21:00 06/04/20 19:54 Atorvastatin Calcium 10 Mg Tab PO 10 mg HS [facility] Administration Clonidine 0.2 mg 06/02/20 09:00 06/02/20 09:25 Clonidine 0.2mg/24 Hour Patch TD 0.2 mg Q7DAYS [facility] Administration Cyanocobalamin 1,000 mcg 06/04/20 09:00 06/05/20 09:14 Cyanocobalamin (Vitamin B-12) 1,000 Mcg Tab PO 1,000 mcg DAILY [facility] Administration Enoxaparin Sodium 40 mg 06/01/20 09:00 06/05/20 09:05 Enoxaparin Sodium 40 Mg/0.4 Ml Syringe SC Not Given 0900 [facility] Fluticasone Propionate 1 gm 06/01/20 09:00 06/05/20 09:14 Fluticasone Propionate Nasal [place] 16 Gm Bottle NASAL 2 sprays DAILY [facility] Administration Folic Acid 1 mg 06/04/20 09:00 06/05/20 09:15 Folic Acid 1 Mg Tab PO 1 mg DAILY [facility] Administration Furosemide 20 mg 06/04/20 09:00 06/05/20 09:15 Furosemide 20 Mg Tab PO 20 mg DAILY [facility] Administration Guaifenesin 1,200 mg 05/31/20 21:00 06/05/20 09:15 Guaifenesin Er 600 Mg Tab PO Not Given Q12HR [facility] Hydralazine HCl 10 mg 06/02/20 11:12 06/03/20 13:03 Hydralazine 20 Mg/Ml Vial SLOW IVP 10 mg Q4H PRN Administration SBP Greater Than 180 Promethazine HCl 25 mg/ Sodium 51 mls @ 102 mls/hr 06/03/20 22:53 06/04/20 05:44 Chloride IVPB 51 mls Q6H PRN Administration Nausea Isosorbide Mononitrate 60 mg 06/03/20 09:00 06/04/20 10:23 Isosorbide Mononitrate Er 60 Mg Tab PO 60 mg DAILY [facility] Administration Levofloxacin 500 mg 06/02/20 06:00 06/05/20 05:20 Levofloxacin 500 Mg Tab PO 06/09/20 06:01 500 mg 0600 [facility] Administration Levothyroxine Sodium 25 mcg 06/03/20 06:00 06/05/20 05:20 Levothyroxine Sodium 25 Mcg Tab PO 25 mcg 0600 [facility] Administration Losartan Potassium 100 mg 06/04/20 09:00 06/05/20 09:15 Losartan 25 Mg Tab PO 100 mg DAILY [facility] Administration Miscellaneous Medication 0 ml 06/02/20 14:00 06/05/20 09:17 Biotene Mouth [place] 44.3 Ml MM 1 spr [id number] [facility] Administration Mometasone Furoate/Formoterol Fumar 2 puff 05/31/20 18:30 06/05/20 07:27 Mometasone 200 Mcg/Formoterol 5 Mcg 120 Puff Inhaler INH 2 puff BID-RT [facility] Administration Nicotine 14 mg 05/31/20 16:00 06/04/20 16:20 Nicotine 14 Mg Patch TD 14 mg Q24HR [facility] Administration Nitroglycerin 0.4 mg 06/02/20 11:41 06/03/20 13:38 Nitroglycerin 0.4 Mg Tab (25 Tab Bottle) SL 0.4 mg Q5MIN PRN Administration Chest Pain Pantoprazole Sodium 40 mg 06/04/20 09:00 06/05/20 09:15 Pantoprazole 40 Mg Tab PO 40 mg DAILY [facility] Administration Cytoxan [ 0 each 06/01/20 09:00 06/05/20 09:17 Cyclophosphamide] 50 PO Not Given Mg Caps DAILY [facility] Prednisone 20 mg 06/04/20 09:00 06/05/20 09:15 Prednisone 20 Mg Tab PO 20 mg DAILY [facility] Administration Promethazine HCl 25 mg 05/31/20 21:00 06/04/20 19:54 Promethazine 25 Mg Tab PO 25 mg HS [facility] Administration Senna/Docusate Sodium 2 tab 05/31/20 10:49 06/03/20 20:14 Senokot S 8.6-50 Mg Tab PO 2 tab BID PRN Administration Constipation Sodium Chloride 10 ml 05/31/20 21:00 06/05/20 09:16 Flush - Normal Saline 10 Ml Syringe IVF 10 ml Q12HR [facility] Administration Sodium Chloride 10 ml 05/31/20 11:15 06/02/20 11:58 Flush - Normal Saline 10 Ml Syringe IVF 10 ml PRN PRN Administration Saline Flush Trazodone HCl 25 mg 06/01/20 21:12 06/02/20 20:04 Trazodone Hcl 50 Mg Tab PO 25 mg HSPRN PRN Administration Insomnia Hospitalist Exam Vitals: Vital Signs (12 hours) Temp Pulse Resp BP Pulse Ox 06/05/20 08:00 98 F 98 20 177/83 H 95 06/05/20 07:26 84 16 95 06/05/20 05:40 88 16 156/73 H 06/05/20 00:21 20 06/04/20 23:44 97 16 141/70 H Weight Weight 216 lb 0.848 oz General Appearance: NAD, awake alert Eye: PERRL, anicteric sclera ENT: normocephalic atraumatic, no oropharyngeal lesions Neck: supple, symmetric, no JVD, no thyromegaly Heart: no murmur, no gallops, no rubs Respiratory: rhonchi, tachypneic, wheezes Gastrointestinal: soft, non-tender, non-distended, normal bowel sounds Extremities: no clubbing, no edema Skin: normal turgor, no lesions Neurological: no focal deficits Musculoskeletal: generalized weakness Psychiatric: normal affect, normal behavior Hosp A/P (1) Acute respiratory failure with hypoxia Code(s): J96.01 - ACUTE RESPIRATORY FAILURE WITH HYPOXIA Status: Acute (2) COPD exacerbation Code(s): J44.1 - CHRONIC OBSTRUCTIVE PULMONARY DISEASE W (ACUTE) EXACERBATION Status: Acute (3) Constipation Code(s): K59.00 - CONSTIPATION, UNSPECIFIED Status: Resolved Qualifiers: Constipation type: slow transit constipation Qualified Code(s): K59.01 - Slow transit constipation (4) Anemia Code(s): D64.9 - ANEMIA, UNSPECIFIED Status: Chronic Qualifiers: Anemia type: unspecified type Qualified Code(s): D64.9 - Anemia, unspecified (5) Dyslipidemia Code(s): E78.5 - HYPERLIPIDEMIA, UNSPECIFIED Status: Chronic (6) HTN (hypertension) Code(s): I10 - ESSENTIAL (PRIMARY) HYPERTENSION Status: Chronic Qualifiers: Hypertension type: essential hypertension Qualified Code(s): I10 - Essential (primary) hypertension (7) History of aortic aneurysm repair Code(s): Z98.890 - OTHER SPECIFIED POSTPROCEDURAL STATES; Z86.79 - PERSONAL HISTORY OF OTHER DISEASES OF THE CIRCULATORY SYSTEM Status: Chronic (8) Hypothyroidism Code(s): E03.9 - HYPOTHYROIDISM, UNSPECIFIED Status: Chronic Qualifiers: Hypothyroidism type: unspecified Qualified Code(s): E03.9 - Hypothyroidism, unspecified (9) Ovarian cancer Status: Chronic (10) Reflex sympathetic dystrophy Code(s): G90.50 - COMPLEX REGIONAL PAIN SYNDROME I, UNSPECIFIED Status: Chronic (11) Tobacco abuse Code(s): Z72.0 - TOBACCO USE Status: Chronic (12) Macrocytic anemia Code(s): D53.9 - NUTRITIONAL ANEMIA, UNSPECIFIED Status: Chronic - Plan old records reviewed/req, plan discussed w/ family, continue antibiotics, PT/OT, rn social work, respiratory therapy Patient is on optimal medical therapy for her COPD, Patient has advanced COPD and requires longer than expected time to recover, She has significant anxiety and physical deconditioning, she and her family member requesting half-way home evaluation, will consult physical therapy occupational therapy and case management director for evaluation Patient is not ready for discharge, Her medications reviewed and continue provide symptomatic and supportive care Plan of care discussed with the patient and family member bedside
[2020-06-05] MEDS: Senokot S 8.6-50 MG TAB PO PRN (14:11)
[2020-06-05] MEDS: Promethazine HCl 25 MG in Sodium Chloride 0.9% 50 ML IVPB PRN (15:00)
[2020-06-05] MEDS: Nicotine 14 MG PATCH TD SCH (15:00)
--- NOTE | 2020-06-05 16:09 | PDOC.CPN ---
- Subjective Date: 06/05/20 Time: 16:08 Interval history: She had a high episode today were her BP went to the 190's and she had chest pain. Her symptom only improved once her BP went down to the 160's. She states she prefers her clonidine PO as she has been taking at home instead of the patch. - Review of Systems General: denies: fever/chills, weight/appetite/sleep changes, night sweats, fatigue Respiratory: denies: cough, congestion, shortness of breath, exercise intolerance Cardiovascular: reports: chest pain. denies: palpitation, edema, paroxysmal nocturnal dyspnea, orthopnea Gastrointestinal: denies: nausea, vomiting, diarrhea, constipation, abd pain, GI bleeding Musculoskeletal: denies: pain, tenderness, stiffness, swelling, arthritis/arth ralgias Neurological: denies: numbness, syncope, seizure, weakness - Objective Allergies/Adverse Reactions: Allergies Allergy/AdvReac Type Severity Reaction Status Date / Time butorphanol tartrate Allergy Severe Anaphylaxis Verified 06/27/19 21:03 [From Stadol] meperidine HCl [From Demerol] Allergy Severe Anaphylaxis Verified 06/27/19 21:03 codeine Allergy Verified 06/27/19 21:03 ondansetron Allergy hypertensio Verified 06/27/19 21:03 [From Zofran (as n hydrochloride)] hydromorphone [From Dilaudid] AdvReac Severe vomiting Verified 06/27/19 21:03 morphine AdvReac Severe vomiting Verified 06/27/19 21:03 IV NARCOTICS Allergy Severe VERY Uncoded 06/27/19 21:03 SENSITIVE, NAUSEA/VOMITING, SUPRESSED BREATHING No Pain Injections Allergy Uncoded 06/27/19 21:03 Visit Medications: Current Medications Acetaminophen (Acetaminophen 325 Mg Tab) 650 mg PO Q4H PRN PRN Reason: Headache/Fever/Mild Pain (1-3) Last Admin: 06/03/20 13:09 Dose: 650 mg Documented by: Acetaminophen (Acetaminophen 650 Mg Suppository) 650 mg FL Q4H PRN PRN Reason: Headache/Fever/Mild Pain (1-3) Hydrocodone Bitart/Acetaminophen (Hydrocodone/Acetaminophen 10/325 Mg Tablet) 1 tab PO Q4H PRN PRN Reason: Mild-Moderate Pain (1-5) Last Admin: 06/05/20 14:11 Dose: 1 tab Documented by: Hydrocodone Bitart/Acetaminophen (Hydrocodone/Acetaminophen 10/325 Mg Tablet) 2 tab PO Q4H PRN PRN Reason: Severe Pain (7-10) Last Admin: 06/03/20 13:43 Dose: 2 tab Documented by: Albuterol Sulfate (Albuterol 200 Puff (6.7gm Inhaler)) 0 puff INH ASDIR [facility] Albuterol/Ipratropium (Ipratropium/Albuterol Sulfate 3 Ml Neb) 3 ml NEB [id number] MEKHI Last Admin: 06/05/20 13:49 Dose: 3 ml Documented by: Albuterol/Ipratropium (Ipratropium/Albuterol Sulfate 3 Ml Neb) 3 ml NEB [id number] PRN PRN Reason: SOB &/or Wheezing Alprazolam (Alprazolam 0.5 Mg Tab) 0.5 mg PO TIDPRN PRN PRN Reason: Anxiety/Insomnia Last Admin: 06/05/20 09:27 Dose: 0.5 mg Documented by: Atorvastatin Calcium (Atorvastatin Calcium 10 Mg Tab) 10 mg PO HS [facility] Last Admin: 06/04/20 19:54 Dose: 10 mg Documented by: Benzonatate (Benzonatate 100 Mg Cap) 100 mg PO Q6H PRN PRN Reason: Cough Calcium Carbonate (Calcium Carbonate 500 Mg Chewtab) 1,000 mg PO Q4H PRN PRN Reason: Heartburn or Indigestion Clonidine (Clonidine 0.2 Mg Tab) 0.2 mg PO BID [facility] Cyanocobalamin (Cyanocobalamin (Vitamin B-12) 1,000 Mcg Tab) 1,000 mcg PO DAILY [facility] Last Admin: 06/05/20 09:14 Dose: 1,000 mcg Documented by: Enoxaparin Sodium (Enoxaparin Sodium 40 Mg/0.4 Ml Syringe) 40 mg SC 0900 [facility] Last Admin: 06/05/20 09:05 Dose: Not Given Documented by: Fluticasone Propionate (Fluticasone Propionate Nasal [place] 16 Gm Bottle) 1 gm NASAL DAILY [facility] Last Admin: 06/05/20 09:14 Dose: 2 sprays Documented by: Folic Acid (Folic Acid 1 Mg Tab) 1 mg PO DAILY [facility] Last Admin: 06/05/20 09:15 Dose: 1 mg Documented by: Furosemide (Furosemide 20 Mg Tab) 20 mg PO DAILY [facility] Last Admin: 06/05/20 09:15 Dose: 20 mg Documented by: Guaifenesin (Guaifenesin Er 600 Mg Tab) 1,200 mg PO Q12HR [facility] Last Admin: 06/05/20 09:15 Dose: Not Given Documented by: Guaifenesin (Guaifenesin Sf Soln 200 Mg/10 Ml Udcup) 200 mg PO Q4H PRN PRN Reason: Cough Guaifenesin/Dextromethorphan (Guaifenesin Dm 100-10/5 Ml Udcup) 15 ml PO Q4H PRN PRN Reason: Cough Hydralazine HCl (Hydralazine 20 Mg/Ml Vial) 10 mg SLOW IVP Q4H PRN PRN Reason: SBP Greater Than 180 Last Admin: 06/03/20 13:03 Dose: 10 mg Documented by: Promethazine HCl 25 mg/ Sodium (Chloride) 51 mls @ 102 mls/hr IVPB Q6H PRN PRN Reason: Nausea Last Admin: 06/05/20 15:00 Dose: 51 mls Documented by: Isosorbide Mononitrate (Isosorbide Mononitrate Er 60 Mg Tab) 60 mg PO DAILY [facility] Last Admin: 06/04/20 10:23 Dose: 60 mg Documented by: Levofloxacin (Levofloxacin 500 Mg Tab) 500 mg PO 0600 [facility] Stop: 06/09/20 06:01 Last Admin: 06/05/20 05:20 Dose: 500 mg Documented by: Levothyroxine Sodium (Levothyroxine Sodium 25 Mcg Tab) 25 mcg PO 0600 [facility] Last Admin: 06/05/20 05:20 Dose: 25 mcg Documented by: Loperamide HCl (Loperamide Hcl 2 Mg Cap) 2 mg PO PRN PRN PRN Reason: Diarrhea/Loose Stools Loratadine (Loratadine 10 Mg Tab) 10 mg PO DAILYPRN PRN PRN Reason: Sinus Symptoms Losartan Potassium (Losartan 25 Mg Tab) 100 mg PO DAILY [facility] Last Admin: 06/05/20 09:15 Dose: 100 mg Documented by: Miscellaneous Medication (Biotene Mouth [place] 44.3 Ml) 0 ml MM [id number] Last Admin: 06/05/20 14:12 Dose: 1 spr Documented by: Mometasone Furoate/Formoterol Fumar (Mometasone 200 Mcg/Formoterol 5 Mcg 120 Puff Inhaler) 2 puff INH BID-RT [facility] Last Admin: 06/05/20 07:27 Dose: 2 puff Documented by: Nicotine (Nicotine 14 Mg Patch) 14 mg TD Q24HR [facility] Last Admin: 06/05/20 15:00 Dose: 14 mg Documented by: Nitroglycerin (Nitroglycerin 0.4 Mg Tab (25 Tab Bottle)) 0.4 mg SL Q5MIN PRN PRN Reason: Chest Pain Last Admin: 06/03/20 13:38 Dose: 0.4 mg Documented by: Pantoprazole Sodium (Pantoprazole 40 Mg Tab) 40 mg PO DAILY [facility] Last Admin: 06/05/20 09:15 Dose: 40 mg Documented by: Cytoxan [ Cyclophosphamide] 50 Mg Caps 0 each PO DAILY [facility] Last Admin: 06/05/20 09:17 Dose: Not Given Documented by: Prednisone (Prednisone 20 Mg Tab) 20 mg PO DAILY [facility] Last Admin: 06/05/20 09:15 Dose: 20 mg Documented by: Promethazine HCl (Promethazine 25 Mg Tab) 25 mg PO [facility] Last Admin: 06/04/20 19:54 Dose: 25 mg Documented by: Senna/Docusate Sodium (Senokot S 8.6-50 Mg Tab) 2 tab PO BID PRN PRN Reason: Constipation Last Admin: 06/05/20 14:11 Dose: 2 tab Documented by: Sodium Chloride (Flush - Normal Saline 10 Ml Syringe) 10 ml IVF Q12HR [facility] Last Admin: 06/05/20 09:16 Dose: 10 ml Documented by: Sodium Chloride (Flush - Normal Saline 10 Ml Syringe) 10 ml IVF PRN PRN PRN Reason: Saline Flush Last Admin: 06/02/20 11:58 Dose: 10 ml Documented by: Sodium Chloride (Sodium Chloride 0.65% Nasal 44 Ml Bot) 0 ml EA NARE QIDPRN PRN PRN Reason: Nasal Congestion Temazepam (Temazepam 15 Mg Cap) 15 mg PO HSPRN PRN PRN Reason: Insomnia Throat Lozenges (Cepastat Lozenges 1 Heriberto) 1 heriberto PO Q2H PRN PRN Reason: Sore Throat Trazodone HCl (Trazodone Hcl 50 Mg Tab) 25 mg PO HSPRN PRN PRN Reason: Insomnia Last Admin: 06/02/20 20:04 Dose: 25 mg Documented by: Vital Signs & Weight: Vital Signs Temp Pulse Resp BP Pulse Ox 06/05/20 13:49 123 H 24 H 93 L 06/05/20 12:44 172/80 H 06/05/20 12:43 197/89 H 06/05/20 08:00 98 F 98 20 177/83 H 95 06/05/20 07:26 84 16 95 06/05/20 05:40 88 16 156/73 H Weight 216 lb 0.848 oz - Physical Exam General: alert & oriented x3 HEENT: mucus membranes moist Neck: supple neck Cardiac: regular rate and rhythm Lungs: clear to auscultation Neuro: grossly intact Abdomen: active bowel sounds Extremities: no edema Skin: clear Musculoskeletal: no pain - Labs Result Diagrams: 06/04/20 05:33 06/04/20 05:33 Troponin/CKMB Troponin I 0.018 ng/mL (< 0.028) 06/02/20 12:35 - Assessment/Plan Assessment/Plan: 1. COPD exacerbation 2. Community-acquired pneumonia 3. Congestive heart failure-diastolic 4. Hypertension 5. History of abdominal aortic aneurysm repair 6. Ovarian cancer 7. Anxiety 8. Edema, resolved. PLAN: - BP not well controlled. - She wants to be back on her PO clonidine as she does not feel the patch is working. Yesterday her BP was pretty much normal on her regimen and worse today. Likely a big component of anxiety. - Dr. Luu to follow up in the morning.
--- NOTE | 2020-06-05 18:48 | PDOC.PULPN ---
Progress Note: Subj/Obj - Subjective Date: 06/05/20 Time: 17:20 Narrative: short of breath when oxxygen decreased - ROS Respiratory: congestion, cough, chest tightness - Objective Allergies/Adverse Reactions: Allergies Allergy/AdvReac Type Severity Reaction Status Date / Time butorphanol tartrate Allergy Severe Anaphylaxis Verified 06/27/19 21:03 [From Stadol] meperidine HCl [From Demerol] Allergy Severe Anaphylaxis Verified 06/27/19 21:03 codeine Allergy Verified 06/27/19 21:03 ondansetron Allergy hypertensio Verified 06/27/19 21:03 [From Zofran (as n hydrochloride)] hydromorphone [From Dilaudid] AdvReac Severe vomiting Verified 06/27/19 21:03 morphine AdvReac Severe vomiting Verified 06/27/19 21:03 IV NARCOTICS Allergy Severe VERY Uncoded 06/27/19 21:03 SENSITIVE, NAUSEA/VOMITING, SUPRESSED BREATHING No Pain Injections Allergy Uncoded 06/27/19 21:03 Vital Signs: Vital Signs Temp 98 F 06/05/20 08:00 Pulse 123 H 06/05/20 13:49 Resp 24 H 06/05/20 13:49 BP 131/41 L 06/05/20 17:03 Pulse Ox 93 L 06/05/20 13:49 Intake & Output 06/04/20 06/05/20 06/05/20 18:59 06:59 18:59 Intake Total 120 733 Balance 120 733 Intake: Oral 120 400 Oral Supplement 333 Other: Voiding Method Toilet Bedside Commode # Unmeasured Voids 4 3 # Bowel Movements 3 Progress Note: Exam - Physical Exam Constitutional: NAD HEENT: moist MMs Neck: no JVD Cardiovascular: RRR Respiratory: decreased breath sounds, rhonchi, wheezes Gastrointestinal: soft Musculoskeletal: no edema Psychiatric: A&O x 3 Skin: no rash Progress Note: Data - Labs Result Diagrams: 06/04/20 05:33 06/04/20 05:33 Progress Note: A/P - Problems (1) COPD exacerbation Current Visit: No Status: Acute Code(s): J44.1 - CHRONIC OBSTRUCTIVE PULMONARY DISEASE W (ACUTE) EXACERBATION Assessment and Plan: continue current treatment as outlined oxygen bronchodilators - Time Spent with Patient Time (minutes): 15
[2020-06-05] MEDS: Promethazine 25 MG TAB PO SCH (20:20)
[2020-06-05] MEDS: Atorvastatin Calcium 10 MG TAB PO SCH (20:20)
[2020-06-05 20:21] VITALS: TEMP 98.2
[2020-06-05] MEDS ORDERED: cloNIDine 0.2 MG TAB PO SCH (21:00)
[2020-06-06] MEDS: Levothyroxine Sodium 25 MCG TAB PO SCH (05:47)
[2020-06-06] MEDS: BIOTENE MOUTH SPRAY 44.3 ML MM SCH ×3 (05:51→13:34)
[2020-06-06 06:22] LABS: Anion Gap 11 mmol/L (10-20); BUN (Urea Nitrogen) 46 mg/dL (9.8-20.1); Calc. Creatinine Clearance 65 mL/min (70-130); Calcium 7.6 mg/dL (7.8-10.44); Carbon Dioxide 30 mmol/L (23-31); Chloride 108 mmol/L (98-107); Glucose 100 mg/dL (80-115); Sodium 145 mmol/L (136-145)
[2020-06-06 06:30] LABS: #Eosinphils 0.1 thou/uL (0.0-0.7); #Lymphocytes 0.7 thou/uL (1.20-3.40); #Monocytes 0.4 thou/uL (0.11-0.59); %Eosinophils 1.9 % (0.0-10.0); %Neutrophils 83.1 % (42.0-75.0); Hemoglobin 8.7 g/dL (12.0-16.0); Mean Corpuscular HGB CONC 34.5 g/dL (32.0-36.0); Mean Corpuscular Hemoglobin 36.9 pg (27.0-31.0); Mean Platelet Volume 9.2 fL (7.4-10.4); Platelet Count 90 thou/uL (130-400); RBC Distribution Width 12.9 % (11.5-14.5); Red Blood Cell (RBC) Count 2.37 mill/uL (4.20-5.40); White Blood Cell (WBC) Count 7.3 thou/uL (4.8-10.8)
[2020-06-06] MEDS: Mometasone 200 MCG/Formoterol 5 MCG 120 PUFF INHALER INH SCH (08:13)
[2020-06-06 08:33] VITALS: BP 173/79
[2020-06-06] MEDS: Enoxaparin Sodium 40 MG/0.4 ML SYRINGE SC SCH (09:21)
[2020-06-06] MEDS: Losartan 25 MG TAB PO SCH (09:28)
[2020-06-06] MEDS: Folic Acid 1 MG TAB PO SCH (09:28)
[2020-06-06] MEDS: Furosemide 20 MG TAB PO SCH (09:28)
[2020-06-06] MEDS: Cyanocobalamin (Vitamin B-12) 1,000 MCG TAB PO SCH (09:28)
[2020-06-06] MEDS: predniSONE 20 MG TAB PO SCH (09:28)
[2020-06-06] MEDS: CYCLOPHOSPHAMIDE PO SCH (09:29)
[2020-06-06] MEDS: guaiFENesin ER 600 MG TAB PO SCH (09:29)
[2020-06-06] MEDS: Fluticasone Propionate Nasal Spray 16 gm Bottle NASAL SCH (09:29)
[2020-06-06] MEDS: Senokot S 8.6-50 MG TAB PO PRN (09:40)
[2020-06-06] MEDS: HYDROcodone/Acetaminophen 10/325 mg Tablet PO PRN (09:40)
[2020-06-06] MEDS: ALPRAZolam 0.5 MG TAB PO PRN (09:40)
--- NOTE | 2020-06-06 12:21 | PRG ---
DATE OF SERVICE: 06/06/2020 SUBJECTIVE: This morning, she says she is feeling somewhat better still. She is still anxious. From the Pulmonary standpoint of view, she is improved enough that she can be probably discharged. Follow up with her primary care physician. OBJECTIVE: VITAL SIGNS: Temperature 98, pulse 85, respiratory rate 18, saturations are 93% on 2 L, blood pressure 170/93. CHEST: No wheezing, no crackles. CARDIAC: Normal S1. ABDOMEN: No masses. LABORATORY DATA: Unremarkable. Creatinine is 1.35, BUN is 46. This probably is at baseline. ASSESSMENT: Chronic obstructive pulmonary disease, anxiety, chest pain. PLAN: 1. From Pulmonary standpoint of view, she is ready to be discharged home with tapering dose of prednisone. 2. She can see me in the office in about a month. Job ID: [id number]
--- NOTE | 2020-06-06 12:25 | PDOC.HOSPP ---
- Subjective Encounter Date: 06/06/20 Encounter Time: 07:30 Subjective: Patient seen and examined. No new complaints. No overnight events - Objective Vital Signs & Weight: Vital Signs (12 hours) Temp Pulse Pulse Pulse Resp BP Pulse Ox 06/06/20 10:18 111 H 120 H 06/06/20 08:00 98.2 F 85 18 173/79 H 93 L Pulse Ox Pulse Ox 06/06/20 10:18 96 96 06/06/20 08:00 Weight Weight 216 lb 0.848 oz I&O: 06/05/20 06/06/20 06/07/20 06:59 06:59 06:59 Intake Total 120 1183 Balance 120 1183 Result Diagrams: 06/06/20 05:52 06/06/20 05:52 Hospitalist ROS - Review of Systems Respiratory: reports: shortness of breath, SOB with excertion. denies: cough, dry, hemoptysis, pleuritic pain, sputum, wheezing, other Cardiovascular: denies: chest pain, palpitations, orthopnea, paroxysmal noc. dyspnea, edema, light headedness, other Gastrointestinal: denies: nausea, vomiting, abdominal pain, diarrhea, constipation, melena, hematochezia, other Genitourinary: denies: dysuria, frequency, incontinence, hematuria, retention, other - Medication Medications: Active Medications Generic Name Dose Route Start Last Admin Trade Name Freq PRN Reason Stop Dose Admin Acetaminophen 650 mg 05/31/20 10:49 06/03/20 13:09 Acetaminophen 325 Mg Tab PO 650 mg Q4H PRN Administration Headache/Fever/Mild Pain (1-3) Hydrocodone Bitart/Acetaminophen 1 tab 05/31/20 11:33 06/06/20 09:40 Hydrocodone/Acetaminophen 10/325 Mg Tablet PO 1 tab Q4H PRN Administration Mild-Moderate Pain (1-5) Hydrocodone Bitart/Acetaminophen 2 tab 05/31/20 11:33 06/03/20 13:43 Hydrocodone/Acetaminophen 10/325 Mg Tablet PO 2 tab Q4H PRN Administration Severe Pain (7-10) Albuterol/Ipratropium 3 ml 05/31/20 13:00 06/06/20 08:13 Ipratropium/Albuterol Sulfate 3 Ml Neb NEB 3 ml [id number] MEKHI Administration Alprazolam 0.5 mg 06/03/20 10:24 06/06/20 09:40 Alprazolam 0.5 Mg Tab PO 0.5 mg TIDPRN PRN Administration Anxiety/Insomnia Atorvastatin Calcium 10 mg 05/31/20 21:00 06/05/20 20:20 Atorvastatin Calcium 10 Mg Tab PO 10 mg HS MEKHI Administration Cyanocobalamin 1,000 mcg 06/04/20 09:00 06/06/20 09:28 Cyanocobalamin (Vitamin B-12) 1,000 Mcg Tab PO 1,000 mcg DAILY MEKHI Administration Enoxaparin Sodium 40 mg 06/01/20 09:00 06/06/20 09:21 Enoxaparin Sodium 40 Mg/0.4 Ml Syringe SC Not Given 09 [facility] Fluticasone Propionate 1 gm 06/01/20 09:00 06/06/20 09:29 Fluticasone Propionate Nasal [place] 16 Gm Bottle NASAL 2 sprays DAILY MEKHI Administration Folic Acid 1 mg 06/04/20 09:00 06/06/20 09:28 Folic Acid 1 Mg Tab PO 1 mg DAILY MEKHI Administration Furosemide 20 mg 06/04/20 09:00 06/06/20 09:28 Furosemide 20 Mg Tab PO 20 mg DAILY MEKHI Administration Guaifenesin 1,200 mg 05/31/20 21:00 06/06/20 09:29 Guaifenesin Er 600 Mg Tab PO Not Given Q12HR [facility] Hydralazine HCl 10 mg 06/02/20 11:12 06/03/20 13:03 Hydralazine 20 Mg/Ml Vial SLOW IVP 10 mg Q4H PRN Administration SBP Greater Than 180 Promethazine HCl 25 mg/ Sodium 51 mls @ 102 mls/hr 06/03/20 22:53 06/05/20 15:00 Chloride IVPB 51 mls Q6H PRN Administration Nausea Isosorbide Mononitrate 60 mg 06/03/20 09:00 06/06/20 09:40 Isosorbide Mononitrate Er 60 Mg Tab PO 60 mg DAILY MEKHI Administration Levofloxacin 500 mg 06/02/20 06:00 06/06/20 05:47 Levofloxacin 500 Mg Tab PO 06/09/20 06:01 500 mg 0600 MEKHI Administration Levothyroxine Sodium 25 mcg 06/03/20 06:00 06/06/20 05:47 Levothyroxine Sodium 25 Mcg Tab PO 25 mcg 0600 MEKHI Administration Losartan Potassium 100 mg 06/04/20 09:00 06/06/20 09:28 Losartan 25 Mg Tab PO 100 mg DAILY MEKHI Administration Miscellaneous Medication 0 ml 06/02/20 14:00 06/06/20 09:28 Biotene Mouth [place] 44.3 Ml MM 1 spr [id number] MEKHI Administration Mometasone Furoate/Formoterol Fumar 2 puff 05/31/20 18:30 06/06/20 08:13 Mometasone 200 Mcg/Formoterol 5 Mcg 120 Puff Inhaler INH 2 puff BID-RT MEKHI Administration Nicotine 14 mg 05/31/20 16:00 06/05/20 15:00 Nicotine 14 Mg Patch TD 14 mg Q24HR MEKHI Administration Nitroglycerin 0.4 mg 06/02/20 11:41 06/03/20 13:38 Nitroglycerin 0.4 Mg Tab (25 Tab Bottle) SL 0.4 mg Q5MIN PRN Administration Chest Pain Pantoprazole Sodium 40 mg 06/04/20 09:00 06/06/20 09:28 Pantoprazole 40 Mg Tab PO 40 mg DAILY MEKHI Administration Cytoxan [ 0 each 06/01/20 09:00 06/06/20 09:29 Cyclophosphamide] 50 PO Not Given Mg Caps DAILY [facility] Prednisone 20 mg 06/04/20 09:00 06/06/20 09:28 Prednisone 20 Mg Tab PO 20 mg DAILY MEKHI Administration Promethazine HCl 25 mg 05/31/20 21:00 06/05/20 20:20 Promethazine 25 Mg Tab PO 25 mg HS MEKHI Administration Senna/Docusate Sodium 2 tab 05/31/20 10:49 06/06/20 09:40 Senokot S 8.6-50 Mg Tab PO 2 tab BID PRN Administration Constipation Sodium Chloride 10 ml 05/31/20 21:00 06/06/20 09:29 Flush - Normal Saline 10 Ml Syringe IVF 10 ml Q12HR MEKHI Administration Sodium Chloride 10 ml 05/31/20 11:15 06/02/20 11:58 Flush - Normal Saline 10 Ml Syringe IVF 10 ml PRN PRN Administration Saline Flush Trazodone HCl 25 mg 06/01/20 21:12 06/02/20 20:04 Trazodone Hcl 50 Mg Tab PO 25 mg HSPRN PRN Administration Insomnia Hospitalist Exam Vitals: Vital Signs (12 hours) Temp Pulse Pulse Pulse Resp BP Pulse Ox 06/06/20 10:18 111 H 120 H 06/06/20 08:00 98.2 F 85 18 173/79 H 93 L Pulse Ox Pulse Ox 06/06/20 10:18 96 96 06/06/20 08:00 Weight Weight 216 lb 0.848 oz General Appearance: NAD, awake alert Eye: PERRL, anicteric sclera ENT: normocephalic atraumatic, no oropharyngeal lesions Neck: supple, symmetric, no JVD, no thyromegaly Heart: RRR, no murmur, no gallops, no rubs Respiratory: rhonchi, wheezes Gastrointestinal: soft, non-tender, non-distended, normal bowel sounds Extremities: no cyanosis, no clubbing, no edema Skin: normal turgor, no lesions Neurological: no focal deficits Musculoskeletal: normal tone, normal strength Psychiatric: normal affect, normal behavior Hosp A/P (1) Acute respiratory failure with hypoxia Code(s): J96.01 - ACUTE RESPIRATORY FAILURE WITH HYPOXIA Status: Acute (2) COPD exacerbation Code(s): J44.1 - CHRONIC OBSTRUCTIVE PULMONARY DISEASE W (ACUTE) EXACERBATION Status: Acute (3) Constipation Code(s): K59.00 - CONSTIPATION, UNSPECIFIED Status: Resolved Qualifiers: Constipation type: slow transit constipation Qualified Code(s): K59.01 - Slow transit constipation (4) Anemia Code(s): D64.9 - ANEMIA, UNSPECIFIED Status: Chronic Qualifiers: Anemia type: unspecified type Qualified Code(s): D64.9 - Anemia, unspecified (5) Dyslipidemia Code(s): E78.5 - HYPERLIPIDEMIA, UNSPECIFIED Status: Chronic (6) HTN (hypertension) Code(s): I10 - ESSENTIAL (PRIMARY) HYPERTENSION Status: Chronic Qualifiers: Hypertension type: essential hypertension Qualified Code(s): I10 - Essential (primary) hypertension (7) History of aortic aneurysm repair Code(s): Z98.890 - OTHER SPECIFIED POSTPROCEDURAL STATES; Z86.79 - PERSONAL HISTORY OF OTHER DISEASES OF THE CIRCULATORY SYSTEM Status: Chronic (8) Hypothyroidism Code(s): E03.9 - HYPOTHYROIDISM, UNSPECIFIED Status: Chronic Qualifiers: Hypothyroidism type: unspecified Qualified Code(s): E03.9 - Hypothyroidism, unspecified (9) Ovarian cancer Status: Chronic (10) Reflex sympathetic dystrophy Code(s): G90.50 - COMPLEX REGIONAL PAIN SYNDROME I, UNSPECIFIED Status: Chronic (11) Tobacco abuse Code(s): Z72.0 - TOBACCO USE Status: Chronic (12) Macrocytic anemia Code(s): D53.9 - NUTRITIONAL ANEMIA, UNSPECIFIED Status: Chronic - Plan old records reviewed/req, PT/OT, nursing home social worker Patient is mainly worried about her fluctuating blood pressure, I have added Procardia XL 60 mg p.o. daily, Respiratory montelongo patient is overall stable and appears to be baseline We will continue to monitor while in hospital for better monitoring of her blood pressure, Patient prefers to go home with home health Patient is currently on optimal therapy for COPD, pulmonology following Cardiology also following
[2020-06-06] MEDS ORDERED: NIFEdipine XL 60 MG TAB PO SCH (12:30)
--- NOTE | 2020-06-06 14:10 | PDOC.DS.DS ---
Provider Date of Admission: 05/30/20 22:29 Date of Discharge: 06/06/20 Admitting Provider: Shireen Castro MD Consultations: Cardiology, Pulmonary Primary Care Physician: Fransisca Redman MD Course Hospital Course: Patient was admitted on May 30, 2020, on admission patient had CT angiography which did not show any PE, patient has severe emphysema, patient has chronic respiratory failure with home oxygen therapy, she was admitted for COPD flareup, patient was also having anxiety, she was also complaining of intermittent chest pain, cardiology was consulted, pulmonology was consulted, patient was optimally treated with COPD treatment while in hospital, she had echocardiography which showed normal EF, patient was evaluated by pulmonary and critical care as well as cardiology as well as oncology. Subsequently patient was stabilized with medical treatment and she expressed her wish to go home, we are arranging home health, her influenza screen and COVID-19 was negative, blood culture remain negative, patient main concern was anxiety and her blood pressure so we have to adjust her medication and all new medication prescription given. Resuscitation Status: 05/31/20 10:46 Resuscitation Status Routine Resuscitation Status: FULL: Full Resuscitation Lab Results: 06/06/20 05:52 06/06/20 05:52 Abnormal Lab Results - Last 48 hrs 06/06/20 05:52: Chloride 108 H, BUN 46 H, Creatinine 1.35 H, Calcium 7.6 L 06/06/20 05:52: RBC 2.37 L, Hgb 8.7 L, Hct 25.3 L, MCV 107.0 H, MCH 36.9 H, Plt Count 90 L, Neutrophils % 83.1 H, Lymphocytes % 9.0 L, Lymphocytes # 0.7 L Microbiology - Entire Visit 05/30/20 22:25 Port - Left Subclavian Vein Blood Culture - Final NO GROWTH IN 5 DAYS 05/30/20 20:01 Artery - Left Leg Blood Culture - Final NO GROWTH IN 5 DAYS Vitals: Vital Signs (12 hours) Temp Pulse Pulse Pulse Resp BP Pulse Ox 06/06/20 13:33 85 06/06/20 10:18 111 H 120 H 06/06/20 08:00 98.2 F 85 18 173/79 H 93 L Pulse Ox Pulse Ox 06/06/20 13:33 06/06/20 10:18 96 96 06/06/20 08:00 Weight Weight 216 lb 0.848 oz Physical Exam: The patient was seen and examined on the day of discharge. General Appearance: NAD, awake alert Eye: PERRL, anicteric sclera ENT: normocephalic atraumatic, no oropharyngeal lesions Neck: supple, symmetric, no JVD Respiratory: rhonchi Cardiovascular: RRR, no murmur, no gallops Gastrointestinal: soft, non-tender, non-distended Extremities: no cyanosis, no clubbing, no edema Skin: normal turgor Neurological: no focal deficits Musculoskeletal: normal tone, normal strength PSYCH: normal affect, normal behavior Problem (1) Acute respiratory failure with hypoxia Code(s): J96.01 - ACUTE RESPIRATORY FAILURE WITH HYPOXIA Status: Acute (2) COPD exacerbation Code(s): J44.1 - CHRONIC OBSTRUCTIVE PULMONARY DISEASE W (ACUTE) EXACERBATION Status: Acute (3) Constipation Code(s): K59.00 - CONSTIPATION, UNSPECIFIED Status: Resolved Qualifiers: Constipation type: slow transit constipation Qualified Code(s): K59.01 - Slow transit constipation (4) Anemia Code(s): D64.9 - ANEMIA, UNSPECIFIED Status: Chronic Qualifiers: Anemia type: unspecified type Qualified Code(s): D64.9 - Anemia, unspecified (5) Dyslipidemia Code(s): E78.5 - HYPERLIPIDEMIA, UNSPECIFIED Status: Chronic (6) HTN (hypertension) Code(s): I10 - ESSENTIAL (PRIMARY) HYPERTENSION Status: Chronic Qualifiers: Hypertension type: essential hypertension Qualified Code(s): I10 - Essential (primary) hypertension (7) History of aortic aneurysm repair Code(s): Z98.890 - OTHER SPECIFIED POSTPROCEDURAL STATES; Z86.79 - PERSONAL HI STORY OF OTHER DISEASES OF THE CIRCULATORY SYSTEM Status: Chronic (8) Hypothyroidism Code(s): E03.9 - HYPOTHYROIDISM, UNSPECIFIED Status: Chronic Qualifiers: Hypothyroidism type: unspecified Qualified Code(s): E03.9 - Hypothyroidism, unspecified (9) Ovarian cancer Status: Chronic (10) Reflex sympathetic dystrophy Code(s): G90.50 - COMPLEX REGIONAL PAIN SYNDROME I, UNSPECIFIED Status: Chronic (11) Tobacco abuse Code(s): Z72.0 - TOBACCO USE Status: Chronic (12) Macrocytic anemia Code(s): D53.9 - NUTRITIONAL ANEMIA, UNSPECIFIED Status: Chronic Plan Prescriptions: cloNIDine [Rqqrylln-CUD-1 Patch] 0.2 mg TD Q7DAYS #4 patch guaiFENesin ER [Mucinex] 1,200 mg PO Q12HR #30 tab Folic Acid [Folvite] 1 mg PO DAILY #30 tab Isosorbide Mononitrate [Imdur] 60 mg PO DAILY #30 tab Furosemide [Lasix] 20 mg PO DAILY #30 tab Levofloxacin [Levaquin] 500 mg PO 0600 #5 tab predniSONE 20 mg PO DAILY #7 tab NIFEdipine [Procardia XL] 60 mg PO DAILY #30 tab Pantoprazole [Protonix] 40 mg PO DAILY #30 tab Benzonatate [Tessalon] 100 mg PO Q6H PRN #30 cap PRN Reason: Cough Cyanocobalamin (Vitamin B-12) [Vitamin B-12] 1,000 mcg PO DAILY #30 tab Home Medications: Medication Instructions Recorded Confirmed Type Albuterol Sulfate [Proair HFA] 1 - 2 puff IH Q4HR PRN 01/09/16 05/31/20 History Promethazine [Phenergan] 25 mg PO HS 01/09/16 05/31/20 History Levothyroxine Sodium [Levo-T] 25 mcg PO DAILY 01/31/16 05/31/20 History Fluticasone/Salmeterol [Advair 1 puff INH BID 08/28/16 05/31/20 History Diskus 500/50] Ipratropium/Albuterol Sulfate 3 ml NEB Q4HR PRN 08/28/16 05/31/20 History [DuoNeb] predniSONE [Prednisone] 20 mg PO PRN PRN 08/28/16 05/31/20 History Umeclidinium Oakes [Incruse 1 inh IH DAILY 07/21/18 05/31/20 History Ellipta] Atorvastatin Calcium [Lipitor] 10 mg PO HS 05/31/20 05/31/20 History Cyclophosphamide [Cytoxan] 50 mg PO DAILY 05/31/20 05/31/20 History Losartan [Cozaar] 100 mg PO DAILY 05/31/20 05/31/20 History Benzonatate [Tessalon] 100 mg PO Q6H PRN #30 cap 06/06/20 Rx Cyanocobalamin (Vitamin B-12) 1,000 mcg PO DAILY #30 tab 06/06/20 Rx [Vitamin B-12] Folic Acid [Folvite] 1 mg PO DAILY #30 tab 06/06/20 Rx Furosemide [Lasix] 20 mg PO DAILY #30 tab 06/06/20 Rx Isosorbide Mononitrate [Imdur] 60 mg PO DAILY #30 tab 06/06/20 Rx Levofloxacin [Levaquin] 500 mg PO 0600 #5 tab 06/06/20 Rx NIFEdipine [Procardia XL] 60 mg PO DAILY #30 tab 06/06/20 Rx Pantoprazole [Protonix] 40 mg PO DAILY #30 tab 06/06/20 Rx cloNIDine [Vbsrnqgo-AXK-0 Patch] 0.2 mg TD Q7DAYS #4 patch 06/06/20 Rx guaiFENesin ER [Mucinex] 1,200 mg PO Q12HR #30 tab 06/06/20 Rx predniSONE 20 mg PO DAILY #7 tab 06/06/20 Rx Allergies: butorphanol tartrate [From Stadol] Allergy (Severe, Verified 06/27/19 21:03) Anaphylaxis meperidine HCl [From Demerol] Allergy (Severe, Verified 06/27/19 21:03) Anaphylaxis codeine Allergy (Verified 06/27/19 21:03) ondansetron [From Zofran (as hydrochloride)] Allergy (Verified 06/27/19 21:03) hypertension hydromorphone [From Dilaudid] Adverse Reaction (Severe, Verified 06/27/19 21:03) vomiting morphine Adverse Reaction (Severe, Verified 06/27/19 21:03) vomiting IV NARCOTICS Allergy (Severe, Uncoded 06/27/19 21:03) VERY SENSITIVE, NAUSEA/VOMITING, SUPRESSED BREATHING No Pain Injections Allergy (Uncoded 06/27/19 21:03) Activity:: Activity as Tolerated Nourishment:: Heart Healthy Diet Therapies:: Home Health Equipment/Supplies:: Oxygen IV Therapy:: Not Applicable Referrals: Fransisca Redman MD [Primary Care Provider] - Disposition: HOME HEALTH Quality CORE MEASURES:: N/A
[2020-06-07] MEDS ORDERED: NIFEdipine XL 60 MG TAB PO SCH (09:00)
[2020-06-09] MEDS ORDERED: cloNIDine 0.2mg/24 Hour PATCH TD SCH (09:00)
== END 2020-06-06 16:00 | disposition home health service (06) | DRG 291 ==
LOC: ERS 19:38 → ONC 22:29
PROVIDERS: ADMIT Internal Medicine; ATTEND Internal Medicine
DX: I13.0 Hypertensive heart and chronic kidney disease with heart failure and stage 1 through stage 4 chronic kidney disease, or unspecified chronic kidney disease (principal); J96.21 Acute and chronic respiratory failure with hypoxia; J18.9 Pneumonia, unspecified organism; I50.33 Acute on chronic diastolic (congestive) heart failure; G90.50 Complex regional pain syndrome I, unspecified; N17.9 Acute kidney failure, unspecified; C79.60 Secondary malignant neoplasm of unspecified ovary; C78.80 Secondary malignant neoplasm of unspecified digestive organ; C79.11 Secondary malignant neoplasm of bladder; Z20.822 Contact with and (suspected) exposure to COVID-19; M79.7 Fibromyalgia; Z51.5 Encounter for palliative care; J43.9 Emphysema, unspecified; F41.9 Anxiety disorder, unspecified; K59.00 Constipation, unspecified; K59.01 Slow transit constipation; E03.9 Hypothyroidism, unspecified; D53.1 Other megaloblastic anemias, not elsewhere classified; I71.4 Abdominal aortic aneurysm, without rupture; K57.90 Diverticulosis of intestine, part unspecified, without perforation or abscess without bleeding; N18.2 Chronic kidney disease, stage 2 (mild); Z98.890 Other specified postprocedural states; Z86.79 Personal history of other diseases of the circulatory system; Z88.5 Allergy status to narcotic agent; Z88.8 Allergy status to other drugs, medicaments and biological substances; Z85.3 Personal history of malignant neoplasm of breast; Z85.41 Personal history of malignant neoplasm of cervix uteri; Z90.710 Acquired absence of both cervix and uterus; Z90.49 Acquired absence of other specified parts of digestive tract; Z79.51 Long term (current) use of inhaled steroids; Z79.890 Hormone replacement therapy; Z79.899 Other long term (current) drug therapy; Z98.51 Tubal ligation status; Z79.52 Long term (current) use of systemic steroids; Z87.891 Personal history of nicotine dependence
CPT/HCPCS: 0240U; 71045; 71275; 80048; 80053; 83605; 83880; 84484; 85025; 86304; 87040; 93005; 93010; 93306; 94640; 94760; 96365; 96375; J0360; J0456; J0696; J1100; J1642; J1650; J1940; J2550; J2920; J3490; J7050; J7512; J7620; Q0169; Q9967

== ENCOUNTER 2020-09-29 12:22 | Inpatient (IN) | payer MEDICARE, MEDICAID ==
[2020-09-29] MEDS ORDERED: HYDROcodone/Acetaminophen 10/325 mg Tablet ONE (13:27)
[2020-09-29] MEDS ORDERED: Lorazepam 1 MG TAB ONE (13:28)
[2020-09-29 14:34] LABS: #Eosinphils 0.1 thou/uL (0.0-0.7); #Lymphocytes 0.4 thou/uL (1.20-3.40); #Monocytes 0.4 thou/uL (0.11-0.59); #Neutrophils 11.6 thou/uL (1.40-6.50); %Eosinophils 0.5 % (0.0-10.0); %Lymphocytes 3.6 % (21.0-51.0); %Monocytes 3.2 % (0.0-10.0); %Neutrophils 92.7 % (42.0-75.0); Hemoglobin 11.5 g/dL (12.0-16.0); Mean Corpuscular HGB CONC 32.1 g/dL (32.0-36.0); Mean Corpuscular Hemoglobin 31.7 pg (27.0-31.0); Mean Platelet Volume 8.2 fL (7.4-10.4); Platelet Count 87 thou/uL (130-400); RBC Distribution Width 13.7 % (11.5-14.5); Red Blood Cell (RBC) Count 3.61 mill/uL (4.20-5.40); White Blood Cell (WBC) Count 12.5 thou/uL (4.8-10.8)
[2020-09-29 15:02] LABS: ALT (SGPT) 11 U/L (8-55); AST (SGOT) 19 U/L (5-34); Albumin 3.1 g/dL (3.4-4.8); Alkaline Phosphatase 58 U/L (40-110); Anion Gap 11 mmol/L (10-20); BUN (Urea Nitrogen) 38 mg/dL (9.8-20.1); Bilirubin, Total 0.4 mg/dL (0.2-1.2); Calc. Creatinine Clearance 0 mL/min (70-130); Calcium 7.7 mg/dL (7.8-10.44); Carbon Dioxide 27 mmol/L (23-31); Chloride 102 mmol/L (98-107); Globulin 1.8 g/dL (2.4-3.5); Glucose 113 mg/dL (80-115); Lipase 8 U/L (8-78); Magnesium 1.3 mg/dL (1.6-2.6); Potassium 3.5 mmol/L (3.5-5.1); Protein, Total 4.9 g/dL (5.8-8.1); Sodium 136 mmol/L (136-145)
[2020-09-29] MEDS ORDERED: Lorazepam 2 MG/ML VIAL ONE (18:50)
[2020-09-29] MEDS ORDERED: Fentanyl 100 MCG/2 ML VIAL ONE (18:50)
[2020-09-29] MEDS ORDERED: Ondansetron PF 4 MG/2 ML Vial IVP PRN (21:40)
[2020-09-29] MEDS ORDERED: Ondansetron ODT 4 MG TAB PO PRN (21:40)
[2020-09-29] MEDS ORDERED: HYDROcodone/Acetaminophen 5/325 mg Tablet PO PRN (21:40)
[2020-09-29 23:28] VITALS: BMI 16.6
[2020-09-30] MEDS: Sodium Chloride 0.9% 1,000 ML IV SCH ×3 (04:30→12:31)
[2020-09-30] MEDS ORDERED: Promethazine 25 MG TAB PO SCH (06:30)
[2020-09-30] MEDS: Ipratropium Bromide 2.5 ml Neb NEB SCH ×4 (07:18→23:42)
[2020-09-30 11:09] LABS: SARS-CoV-2 PCR by NAA Not Detected (NotDetected)
[2020-09-30] MEDS: HYDROcodone/Acetaminophen 5/325 mg Tablet PO PRN ×2 (11:09→16:14)
[2020-09-30] MEDS: Nicotine 21 MG PATCH TOP SCH (11:09)
[2020-09-30] MEDS: Lorazepam 2 MG/ML VIAL SLOW IVP PRN ×2 (11:46→16:14)
[2020-09-30] MEDS ORDERED: Lidocaine 1% w/Epinephrine 1:100K 20 ML VIAL IJ SCH (13:45)
[2020-09-30] MEDS: Fentanyl 100 MCG/2 ML VIAL SLOW IVP PRN ×2 (14:38→18:08)
[2020-10-01] MEDS: HYDROcodone/Acetaminophen 5/325 mg Tablet PO PRN ×3 (00:30→11:00)
[2020-10-01] MEDS: Promethazine 25 MG TAB PO SCH ×2 (00:31→20:19)
[2020-10-01] MEDS: Sodium Chloride 0.9% 1,000 ML IV SCH ×4 (01:21→20:24)
[2020-10-01] MEDS: Ipratropium Bromide 2.5 ml Neb NEB SCH (06:13)
[2020-10-01] MEDS: Lorazepam 2 MG/ML VIAL SLOW IVP PRN ×4 (06:16→22:36)
[2020-10-01] MEDS: Nicotine 21 MG PATCH TOP SCH (11:00)
[2020-10-01] MEDS: Fentanyl 100 MCG/2 ML VIAL SLOW IVP PRN ×2 (13:02→15:58)
[2020-10-01] MEDS ORDERED: Cepastat Lozenges 1 LOZ PO PRN (13:48)
[2020-10-01] MEDS ORDERED: Calcium Carbonate 500 MG ChewTAB PO PRN (13:48)
[2020-10-01] MEDS ORDERED: Senokot S 8.6-50 MG TAB PO PRN (13:48)
[2020-10-01] MEDS ORDERED: Bisacodyl 10 MG SUPP PR PRN (13:48)
[2020-10-01] MEDS: Promethazine HCl 12.5 MG in Sodium Chloride 0.9% 50 ML IVPB PRN (18:38)
[2020-10-02] MEDS: Sodium Chloride 0.9% 1,000 ML IV SCH (03:20)
[2020-10-02] MEDS: Promethazine HCl 12.5 MG in Sodium Chloride 0.9% 50 ML IVPB PRN (10:28)
[2020-10-02] MEDS: HYDROcodone/Acetaminophen 5/325 mg Tablet PO PRN (10:29)
[2020-10-02] MEDS: Nicotine 21 MG PATCH TOP SCH (10:31)
[2020-10-02] MEDS: Fentanyl 100 MCG/2 ML VIAL SLOW IVP PRN (12:35)
[2020-10-02] MEDS: Lorazepam 2 MG/ML VIAL SLOW IVP PRN (13:46)
[2020-10-02 14:47] VITALS: BP 132/78; TEMP 98.2
== END 2020-10-02 14:35 | disposition hospice, inpatient (51) | DRG 199 ==
LOC: ERS 12:22 → T4-B 20:37 → OBSVTOIN 09-30 18:00
PROVIDERS: ADMIT Student in an Organized Health Care Education/Training Program; ATTEND Internal Medicine
PROC: 0W9B00Z Drainage of Left Pleural Cavity with Drainage Device, Open Approach (ICD-10-PCS; principal; 2020-09-30)
DX: J93.9 Pneumothorax, unspecified (principal); J96.21 Acute and chronic respiratory failure with hypoxia; K56.609 Unspecified intestinal obstruction, unspecified as to partial versus complete obstruction; N17.9 Acute kidney failure, unspecified; C56.9 Malignant neoplasm of unspecified ovary; C79.9 Secondary malignant neoplasm of unspecified site; I10 Essential (primary) hypertension; D64.9 Anemia, unspecified; J44.9 Chronic obstructive pulmonary disease, unspecified; E78.5 Hyperlipidemia, unspecified; K90.0 Celiac disease; E03.9 Hypothyroidism, unspecified; Z20.822 Contact with and (suspected) exposure to COVID-19; N73.6 Female pelvic peritoneal adhesions (postinfective); C50.919 Malignant neoplasm of unspecified site of unspecified female breast; Z79.899 Other long term (current) drug therapy; Z88.5 Allergy status to narcotic agent; Z90.49 Acquired absence of other specified parts of digestive tract; Z88.8 Allergy status to other drugs, medicaments and biological substances; Z98.890 Other specified postprocedural states; Z92.21 Personal history of antineoplastic chemotherapy
CPT/HCPCS: 36415; 71045; 74177; 80053; 83690; 83735; 85025; 94640; 96374; 96375; 96376; G0378; J1642; J2060; J2550; J3010; J7620; Q0169; Q9967; U0003; U0005